=== PATIENT | female | born 1970 | race Caucasian/White ===

== ENCOUNTER → 2021-11-14 | Outpatient (CLI) | payer OTHER ==
--- NOTE | 2021-11-15 08:58 | BD ---
EXAMINATION TYPE: Axial Bone Density DATE OF EXAM: 11/14/2021 COMPARISON: NONE CLINICAL HISTORY: Height: 68.7 IN Weight: 227 LBS FRAX RISK QUESTIONS: Current Tobacco Use: YES RISK FACTORS HISTORY OF: Active: YES Postmenopausal woman: AGE 47 MEDICATIONS: Additional Medications: MILOXICAN, TYLENOL EXAM MEASUREMENTS: Bone mineral densitometry was performed using the [employer] System. Bone mineral density as measured about the Lumbar spine is: ----- L1-L4(G/cm2): 1.291 T Score Values are as follows: ----- L2: -1.8 ----- L3: 2.7 ----- L4: 2.6 ----- L1-L4: 0.9 Bone mineral density BASELINE Bone mineral density about the R hip (g/cm2): 0.938 Bone mineral density about the L hip (g/cm2): 0.941 T Score values are as follows: -----R Neck: -0.7 -----L Neck: -0.7 -----R Total: -0.4 -----L Total: -0.3 Bone mineral density BASELINE IMPRESSION: Normal (Values between +1 and -1 indicate normal bone mass). Consider repeating this study in 5 year s or sooner if there is some new clinical indication. NOTE: T-SCORE=SD OF THE YOUNG ADULT MEAN.
--- NOTE | 2021-11-16 08:59 | MM ---
Reason for exam: screening (asymptomatic). Baseline mammogram. History: Patient is postmenopausal. Took hormonal contraceptives for 2 years. Physical Findings: A clinical breast exam by your physician is recommended on an annual basis and results should be correlated with mammographic findings. MG Screening Mammo w CAD Bilateral CC and MLO view(s) were taken. There are scattered fibroglandular densities. There is no discrete abnormality. No significant changes when compared with prior studies. ASSESSMENT: Negative, BI-RAD 1 RECOMMENDATION: Routine screening mammogram of both breasts in 1 year.
== END ==
LOC: RADBDWWP 07:17
PROVIDERS: ATTEND Internal Medicine
DX: Z12.31 Encounter for screening mammogram for malignant neoplasm of breast (principal); Z78.0 Asymptomatic menopausal state; Z13.820 Encounter for screening for osteoporosis
CPT/HCPCS: 77067; 77080

== ENCOUNTER → 2021-11-14 | Outpatient (CLI) | payer OTHER ==
--- NOTE | 2021-11-14 11:22 | MR ---
EXAMINATION TYPE: MR lumbar spine wo con DATE OF EXAM: 11/14/2021 9:02 AM COMPARISON: NONE HISTORY: Low back pain into left leg Multiplanar, MultiSpin echo imaging of the lumbar spine was performed. L1-L2: Normal disc appearance without desiccation. No herniation, protrusion or disc bulging. No ca nal stenosis is present. Foramina are patent bilaterally. L2-L3: There is a horizontal band of linear decreased signal which may reflect nonacute fracture. Wit h adjacent sclerosis. Consider radiographic correlation. Severe degenerative disc space narrowing wi th posterior disc bulge mildly effaces the ventral thecal sac. No evidence for herniation or sina st enosis. Foramina are patent bilaterally. L3-L4: There is a horizontal band of linear decreased signal which may reflect nonacute fracture. Wit h adjacent sclerosis. Consider radiographic correlation. Severe degenerative disc space narrowing wit h posterior disc bulge mildly effaces the ventral thecal sac. No evidence for herniation or sina fabiano nosis. Foramina are patent bilaterally. L4-L5: Moderate to severe degenerative disc disease. Posterior disc bulge. No herniation or protrusio n. No central stenosis. Facet joint arthropathy without foraminal encroachment. L5-S1: Moderate to severe degenerative disc disease. Posterior disc bulge. No herniation or protrusio n. No central stenosis. Facet joint arthropathy without foraminal encroachment. No paraspinal masses are identified. Conus medullaris has a normal appearance. IMPRESSION: 1. Multilevel degenerative disc disease with posterior disc bulging greatest at L2-L3 4. 2. Fractures at L2 and L3 vertebral bodies which appear to be nonacute are difficult to exclude. Cons ider radiographic correlation.
== END | disposition home or self-care (01) ==
LOC: RADMRIMAIN 08:02
PROVIDERS: ATTEND Internal Medicine
DX: M51.36 Other intervertebral disc degeneration, lumbar region (principal)
CPT/HCPCS: 72148

== ENCOUNTER 2021-11-26 01:53 | Emergency (ER) | payer OTHER ==
[2021-11-26 02:04] VITALS: TEMP 97.2
[2021-11-26] MEDS ORDERED: SODIUM CHLORIDE 0.9% 1,000 ML IV STA (02:41)
--- NOTE | 2021-11-26 02:43 | ED ---
Weakness HPI - General Chief complaint: Weakness Stated complaint: Confusion, left sided weakness Time Seen by Provider: 11/26/21 01:58 Source: patient, RN notes reviewed, old records reviewed Mode of arrival: ambulatory Limitations: no limitations - History of Present Illness Initial comments: This is a 51-year-old female to the emergency department for evaluation. Patient presents today for evaluation regards to not feeling well. Patient gave plasma today and occasionally does not feel well after giving plasma. No medical history takes no medications. Patient alone. Patient denies headache chest pain shortness breath or abdominal pain. No fevers travel history or sick contacts MD Complaint: generalized weakness, numbness, difficulty walking -: days(s) Location: generalized Severity: moderate Severity scale (1-10): 4 - Related Data Allergies Allergy/AdvReac Type Severity Reaction Status Date / Time succinylcholine Allergy Anaphylaxis Verified 11/26/21 02:03 Review of Systems ROS Statement: Those systems with pertinent positive or pertinent negative responses have been documented in the HPI. ROS Other: All systems not noted in ROS Statement are negative. Past Medical History Additional Past Medical History / Comment(s): herniated discs History of Any Multi-Drug Resistant Organisms: None Reported Past Surgical History: Cholecystectomy, Tubal Ligation Past Psychological History: No Psychological Hx Reported Smoking Status: Current every day smoker Past Alcohol Use History: None Reported Past Drug Use History: None Reported General Exam Limitations: no limitations General appearance: alert, in no apparent distress Head exam: Present: atraumatic, normocephalic, normal inspection Eye exam: Present: normal appearance, PERRL, EOMI. Absent: scleral icterus, conjunctival injection, periorbital swelling ENT exam: Present: normal exam, mucous membranes moist Neck exam: Present: normal inspection. Absent: tenderness, meningismus, lymphadenopathy Respiratory exam: Present: normal lung sounds bilaterally. Absent: respiratory distress, wheezes, rales, rhonchi, stridor Cardiovascular Exam: Present: regular rate, normal rhythm, normal heart sounds. Absent: systolic murmur, diastolic murmur, rubs, gallop, clicks GI/Abdominal exam: Present: soft, normal bowel sounds. Absent: distended, tenderness, guarding, rebound, rigid Extremities exam: Present: normal inspection, full ROM, normal capillary refill. Absent: tenderness, pedal edema, joint swelling, calf tenderness Back exam: Present: normal inspection Neurological exam: Present: alert, oriented X3, CN II-XII intact Psychiatric exam: Present: normal affect, normal mood Skin exam: Present: warm, dry, intact, normal color. Absent: rash Course Vital Signs 11/26/21 01:56 Temperature 97.2 F L Pulse Rate 100 Respiratory 22 Rate Blood Pressure 103/71 O2 Sat by Pulse 100 Oximetry - Reevaluation(s) Reevaluation #1: 11/26/21 03:42 Medical record is reviewed Reevaluation #2: 11/26/21 04:15 Patient symptoms are mildly improved a little still feels unwell Reevaluation #3: 11/26/21 04:15 Patient informed of results and questions answered EKG Findings - EKG Comments: EKG Findings:: EKG sinus rhythm 79 OK 132 QRS 89 QTC 436 Medical Decision Making - Medical Decision Making 51 female to the ER for evaluation. Patient Dese after plasma donation not feeling well lightheaded dizzy at times. No acute symptoms, no headache chest pain shortness breath or abdominal pain. Mildly improved here in the ER lab values are normal patient can be discharged home - Lab Data Result diagrams: 11/26/21 02:47 11/26/21 02:47 Lab Results 11/26/21 11/26/21 11/26/21 Range/Units 02:47 02:47 02:47 WBC 11.0 H (3.8-10.6) k/uL RBC 5.11 (3.80-5.40) m/uL Hgb 16.5 H (11.4-16.0) gm/dL Hct 51.1 H (34.0-46.0) % MCV 100.0 (80.0-100.0) fL MCH 32.4 (25.0-35.0) pg MCHC 32.4 (31.0-37.0) g/dL RDW 12.8 (11.5-15.5) % Plt Count 282 (150-450) k/uL MPV 8.0 Neutrophils % 52 % Lymphocytes % 36 % Monocytes % 6 % Eosinophils % 4 % Basophils % 1 % Neutrophils # 5.8 (1.3-7.7) k/uL Lymphocytes # 4.0 (1.0-4.8) k/uL Monocytes # 0.7 (0-1.0) k/uL Eosinophils # 0.4 (0-0.7) k/uL Basophils # 0.1 (0-0.2) k/uL PT (9.0-12.0) sec INR (<1.2) APTT (22.0-30.0) sec Sodium 138 (137-145) mmol/L Potassium 4.3 (3.5-5.1) mmol/L Chloride 107 (98-107) mmol/L Carbon Dioxide 27 (22-30) mmol/L Anion Gap 4 mmol/L BUN 16 (7-17) mg/dL Creatinine 0.77 (0.52-1.04) mg/dL Est GFR (CKD-EPI)AfAm >90 (>60 ml/min/1.73 sqM) Est GFR (CKD-EPI)NonAf >90 (>60 ml/min/1.73 sqM) Glucose 88 (74-99) mg/dL Plasma Lactic Acid James 0.9 (0.7-2.0) mmol/L Calcium 9.2 (8.4-10.2) mg/dL Phosphorus 4.3 (2.5-4.5) mg/dL Magnesium 1.8 (1.6-2.3) mg/dL Total Bilirubin 0.5 (0.2-1.3) mg/dL AST 26 (14-36) U/L ALT 22 (4-34) U/L Alkaline Phosphatase 64 (38-126) U/L Ammonia 13 (<30) umol/L Total Protein 5.9 L (6.3-8.2) g/dL Albumin 3.6 (3.5-5.0) g/dL Lipase 156 (23-300) U/L 11/26/21 Range/Units 02:47 WBC (3.8-10.6) k/uL RBC (3.80-5.40) m/uL Hgb (11.4-16.0) gm/dL Hct (34.0-46.0) % MCV (80.0-100.0) fL MCH (25.0-35.0) pg MCHC (31.0-37.0) g/dL RDW (11.5-15.5) % Plt Count (150-450) k/uL MPV Neutrophils % % Lymphocytes % % Monocytes % % Eosinophils % % Basophils % % Neutrophils # (1.3-7.7) k/uL Lymphocytes # (1.0-4.8) k/uL Monocytes # (0-1.0) k/uL Eosinophils # (0-0.7) k/uL Basophils # (0-0.2) k/uL PT 9.9 (9.0-12.0) sec INR 0.9 (<1.2) APTT 22.9 (22.0-30.0) sec Sodium (137-145) mmol/L Potassium (3.5-5.1) mmol/L Chloride (98-107) mmol/L Carbon Dioxide (22-30) mmol/L Anion Gap mmol/L BUN (7-17) mg/dL Creatinine (0.52-1.04) mg/dL Est GFR (CKD-EPI)AfAm (>60 ml/min/1.73 sqM) Est GFR (CKD-EPI)NonAf (>60 ml/min/1.73 sqM) Glucose (74-99) mg/dL Plasma Lactic Acid James (0.7-2.0) mmol/L Calcium (8.4-10.2) mg/dL Phosphorus (2.5-4.5) mg/dL Magnesium (1.6-2.3) mg/dL Total Bilirubin (0.2-1.3) mg/dL AST (14-36) U/L ALT (4-34) U/L Alkaline Phosphatase (38-126) U/L Ammonia (<30) umol/L Total Protein (6.3-8.2) g/dL Albumin (3.5-5.0) g/dL Lipase (23-300) U/L Disposition Clinical Impression: Weakness Disposition: HOME SELF-CARE Condition: Good Instructions (If sedation given, give patient instructions): Weakness (ED) Is patient prescribed a controlled substance at d/c from ED?: No Referrals: Bhavesh Langley MD [Primary Care Provider] - 1-2 days
[2021-11-26 03:56] LABS: INR 0.9 (<1.2); Partial Thromboplastin Time 22.9 sec (22.0-30.0); Prothrombin Time 9.9 sec (9.0-12.0)
[2021-11-26 04:00] LABS: Basophils # (A) 0.1 k/uL (0-0.2); Basophils % (A) 1 %; Eosinophils # (A) 0.4 k/uL (0-0.7); Eosinophils % (A) 4 %; HCT 51.1 % (34.0-46.0); HGB 16.5 gm/dL (11.4-16.0); Lymphocytes % (A) 36 %; MCH 32.4 pg (25.0-35.0); MCHC 32.4 g/dL (31.0-37.0); Monocytes # (A) 0.7 k/uL (0-1.0); Monocytes % (A) 6 %; Neutrophils # (A) 5.8 k/uL (1.3-7.7); Neutrophils % (A) 52 %; Platelet Count 282 k/uL (150-450); RBC 5.11 m/uL (3.80-5.40); RDW 12.8 % (11.5-15.5)
[2021-11-26 04:05] LABS: Lactic Acid, Venous 0.9 mmol/L (0.7-2.0)
[2021-11-26 04:08] LABS: ALT 22 U/L (4-34); AST 26 U/L (14-36); African American GFR (CKD) >90 (>60 ml/min/1.73 sqM); Albumin 3.6 g/dL (3.5-5.0); Alkaline Phosphatase 64 U/L (38-126); Anion Gap 4 mmol/L; Blood Urea Nitrogen 16 mg/dL (7-17); Calcium 9.2 mg/dL (8.4-10.2); Carbon Dioxide 27 mmol/L (22-30); Chloride 107 mmol/L (98-107); Glucose 88 mg/dL (74-99); Lipase 156 U/L (23-300); Magnesium 1.8 mg/dL (1.6-2.3); Non-African American GFR(CKD) >90 (>60 ml/min/1.73 sqM); Phosphorus 4.3 mg/dL (2.5-4.5); Potassium 4.3 mmol/L (3.5-5.1); Sodium 138 mmol/L (137-145); Total Bilirubin 0.5 mg/dL (0.2-1.3); Total Protein 5.9 g/dL (6.3-8.2)
[2021-11-26 04:40] VITALS: BP 120/63; PULSE 89; RESP 18
[2021-11-26 11:57] LABS: Hepatitis A Antibody IgM Nonreactive (Nonreactive); Hepatitis B Surface Antigen Nonreactive (Nonreactive); Hepatitis C IgG Antibody Nonreactive (Nonreactive)
[2021-11-26 12:25] LABS: Hepatitis B Core IgM Nonreactive (Nonreactive)
== END 2021-11-26 04:40 | disposition home or self-care (01) ==
LOC: EC 01:53
DX: R53.1 Weakness (principal); F17.200 Nicotine dependence, unspecified, uncomplicated; Z88.8 Allergy status to other drugs, medicaments and biological substances
CPT/HCPCS: 36415; 80053; 80074; 82140; 83605; 83690; 83735; 83880; 84100; 84484; 85025; 85610; 85730; 93005; 96360; 99285

== ENCOUNTER → 2021-11-30 | Outpatient (CLI) | payer OTHER ==
--- NOTE | 2021-11-30 08:41 | US ---
EXAMINATION TYPE: US liver DATE OF EXAM: 11/30/2021 COMPARISON: NONE CLINICAL HISTORY: R74.8 Elevated liver enzymes. abn labs, no symptoms, cholecystectomy, habitus and b owel gas limits exam EXAM MEASUREMENTS: Liver Length: 18.9 cm Gallbladder Wall: Surgically absent CBD: 0.8 cm Right Kidney: 9.6 x 4.7 x 4.9 cm Pancreas: wnl Liver: 2.8cm cyst with calcified rim = 2.8 x 2.4 x 2.0cm Gallbladder: Surgically absent Evidence for sonographic Rivera's sign: no CBD: wnl Right Kidney: wnl IMPRESSION: Hepatic cyst with calcified rim is noted.
== END | disposition home or self-care (01) ==
LOC: RADUSWWP 07:11
PROVIDERS: ATTEND Internal Medicine
DX: R74.8 Abnormal levels of other serum enzymes (principal)
CPT/HCPCS: 76705

== ENCOUNTER → 2021-12-14 | Outpatient (CLI) | payer OTHER ==
--- NOTE | 2021-12-14 14:09 | CT ---
EXAMINATION TYPE: CT lumbar spine wo con DATE OF EXAM: 12/14/2021 1:39 PM COMPARISON: MRI dated 11/06/2021 HISTORY: LOW BACK PAIN, NO INJURY CT DLP: 1523.7 mGycm Automated exposure control for dose reduction was used. Technique: Unenhanced CT of the lumbar spine was performed. Bone and soft tissue window settings are submitted as well as coronal and sagittal reconstructions. Findings: Mild retrolisthesis of L3 over L4 and anterolisthesis of L5 over S1, likely degenerative. Severe dege nerative changes at L2-3 level with markedly degenerated disc, marked subchondral sclerotic changes a nd opposing endplate osteophytosis. Markedly degenerated L3-4, L4-5 and to a lesser extent L5-S1 discs. Opposing endplate osteophytosis a t L3-4, L4-5 and to a lesser extent L5-S1 level. Severe bilateral L5-S1 facet osteoarthropathy. L1-L2: No significant disc disease, central spinal canal stenosis or neuroforaminal stenosis. L2-L3: Severe degenerative changes as described above, with posterior osteophytosis and small focal l eft foraminal disc protrusion, causing no significant central spinal canal stenosis or significant ne uroforaminal stenosis. L3-L4: Retrolisthesis with degenerated disc, diffuse posterior bulge and right preforaminal, foramina l and extraforaminal disc protrusions, associated with mild ligamentum flavum hypertrophy, causing mo derate central spinal canal stenosis without significant neuroforaminal stenosis. Compression of the right L3 nerve root in extraforaminal location by adjacent osteophytosis/protruded disc. L4-L5: Markedly degenerated disc with diffuse posterior disc bulge, causing no significant central sp inal canal stenosis or significant neuroforaminal stenosis. L5-S1: Degenerated disc with mild anterolisthesis, mild diffuse posterior pseudodisc bulge and severe bilateral facet osteoarthropathy, causing no significant central spinal canal stenosis and mild bila teral neuroforaminal stenosis. Suspected compression of the L5 nerve roots in extraforaminal location by adjacent osteophytosis. Paraspinal lesion. IMPRESSION: Marked degenerative changes of the lumbar spine with multilevel DDD as detailed above, please correla te clinically and with MRI results.
== END | disposition home or self-care (01) ==
LOC: RADCTMAIN 13:13
PROVIDERS: ATTEND Orthopaedic Surgery
DX: M51.36 Other intervertebral disc degeneration, lumbar region (principal)
CPT/HCPCS: 72131

== ENCOUNTER 2021-12-23 07:42 | Day surgery (SDC) | payer OTHER ==
[2021-12-21 09:16] VITALS: BMI 34.0
[~2021-12-23 07:42] MED LIST: LACTATED RINGERS 1,000 ML IV SCH; LIDOCAINE 1% (10MG/ML) FOR IV START INTRADERMA PRN
[2021-12-23 08:05] VITALS: TEMP 97.8
[2021-12-23] MEDS ORDERED: PROPOFOL 10 MG/ML 20 ML VIAL IV ONE (08:09)
[2021-12-23] MEDS ORDERED: LIDOCAINE 1% INJ 10MG/ML (20 ML MDV) ONE (08:09)
--- NOTE | 2021-12-23 08:37 | P.HPIHPCON ---
History of Present Illness H&P Date: 12/23/21 51-year-old female presents for screening colonoscopy. She does have a family history of colon cancer with her mother and cousins. She states that she has had some recent blood in her stool. She has never had a colonoscopy previously. Consent for Procedure: I have explained the operation/procedure to the patient, including the risks, benefits, side effects, alternative therapies (including not receiving the proposed treatment or service), the likelihood of the patient achieving his/her goals, and potential recuperation problems for the procedure/sedation/analgesia, as well as any blood products, if indicated. I also explained to the patient the risks, benefits and side effects of the alternatives, as well as the risks related to not receiving the proposed procedure, care, treatment, or services. - Review of Systems All systems: negative Past Medical History Additional Past Medical History / Comment(s): SCREENING History of Any Multi-Drug Resistant Organisms: None Reported Past Surgical History: Tonsillectomy, Tubal Ligation Additional Past Surgical History / Comment(s): RT HAND NERVE REPAIR Past Anesthesia/Blood Transfusion Reactions: No Reported Reaction Smoking Status: Current every day smoker - Past Family History Father Family Medical History: Cancer Mother Family Medical History: Cancer Medications and Allergies Home Medications Medication Instructions Recorded Confirmed Type Acetaminophen [Tylenol Extra 1,000 mg PO BID 12/21/21 12/21/21 History Strength] methocarbamoL [Robaxin] 750 mg PO QID PRN 12/21/21 12/21/21 History Allergies Allergy/AdvReac Type Severity Reaction Status Date / Time succinylcholine Allergy Anaphylaxis Verified 12/23/21 08:00 Surgical - Exam Osteopathic Statement: *. No significant issues noted on an osteopathic structural exam other than those noted in the History and Physical/Consult. Vital Signs Temp Pulse Resp BP Pulse Ox 97.8 F 90 16 143/90 97 12/23/21 08:04 12/23/21 08:04 12/23/21 08:04 12/23/21 08:04 12/23/21 08:04 - General well nourished, no distress - Eyes normal ocular movement - Respiratory normal respiratory effort - Abdomen Abdomen: soft, non tender Assessment and Plan Plan: Plan is for screening colonoscopy. Risks, benefits and alternatives were provided to the patient. Further recommendations after procedure.
--- NOTE | 2021-12-23 08:45 | P.PCN ---
Date of Procedure: 12/23/21 Preoperative Diagnosis: Screening Blood in stool Postoperative Diagnosis: Multiple colon polyps Procedure(s) Performed: Colonoscopy with forcep polypectomy and hot snare polypectomy Anesthesia: MAC Surgeon: Jennifer Angelo Pathology: other (Polyps of the cecum, ascending, descending, sigmoid colon) Condition: stable Disposition: same day Indications for Procedure: 51-year-old female presents today for screening colonoscopy. Had a history of blood in her stool. Family history of colon cancer. Operative Findings: Polyps of the cecum, ascending, descending and sigmoid colon Description of Procedure: The patient was brought to the endoscopy suite and placed in left lateral decubitus position. Adequate sedation was achieved using conscious sedation. A digital rectal exam was performed and internal hemorrhoids were palpated. An endoscope was then placed in the rectum and advanced to the cecum as identified by landmarks including the appendiceal orifice and the ileocecal valve. The prep was good. The colonoscope was slowly withdrawn, examining for any mucosal abnormalities. The cecum, ascending, transverse, descending and sigmoid colon were visualized adequately. There were no obvious neoplastic lesions noted throughout the colon. Multiple polyps were encountered. The first of which is noted in the cecum. This was removed with forceps polypectomy. Additional polyp was noted in the ascending colon. This was also removed with forceps polypectomy. A polyp was noted in the descending colon. This was removed with hot snare polypectomy. Additional polyp was noted in the sigmoid colon and this was removed with a forcep polypectomy. Retroflexion was performed in the rectum and internal hemorrhoids were visible. Excess air was removed, the colonoscope withdrawn and the procedure terminated. The patient was then transferred to the recovery unit in stable condition. Repeat colonoscopy should be performed in 3 years.
[2021-12-23 08:52] VITALS: RESP 18
[2021-12-23 09:12] VITALS: BP 115/72; PULSE 72
== END 2021-12-23 09:13 | disposition home or self-care (01) ==
LOC: ORWHC2ENDO 07:42
PROVIDERS: ATTEND Surgery
DX: D12.0 Benign neoplasm of cecum (principal); D12.2 Benign neoplasm of ascending colon; D12.4 Benign neoplasm of descending colon; D12.5 Benign neoplasm of sigmoid colon; F17.200 Nicotine dependence, unspecified, uncomplicated
CPT/HCPCS: 45380; 45385; 88305; J2001; J2704

== ENCOUNTER → 2022-03-15 | Outpatient (CLI) | payer OTHER | END | disposition home or self-care (01) | LOC: LABPAT 10:17 | PROVIDERS: ATTEND Orthopaedic Surgery | DX: Z01.812 Encounter for preprocedural laboratory examination (principal); M47.816 Spondylosis without myelopathy or radiculopathy, lumbar region; M43.16 Spondylolisthesis, lumbar region | CPT/HCPCS: 87070 ==

== ENCOUNTER → 2022-03-16 | Outpatient (CLI) | payer OTHER ==
--- NOTE | 2022-03-17 20:40 | CT ---
EXAMINATION TYPE: CT chest wo con DATE OF EXAM: 03/16/2022 INDICATION: abnormal findings on x-ray, h/o personal tobacco use CT DLP: 637 mGy.cm Automated Exposure Control for Dose Reduction was Utilized. TECHNIQUE AND CONTRAST: CT scan of the chest without IV contrast administration. COMPARISON: None available FINDINGS: 3 mm nodule is seen at the anterior aspect of the right middle lobe with 2 mm nodule in the right low er lobe (images #34 and 37, series 4). Few millimetric nodules along the left oblique fissure likely representing dinora-fissural lymph nodes. 3 mm nodule in the left lung, pleural-based, (image #25, seri es 4). Mild COPD changes. Patent trachea and main bronchi. No pleural or pericardial effusion. No car diomegaly. The pulmonary trunk measures 2.7 cm. No pathologically enlarged lymph nodes in the chest. Questionabl e left thyroid lobe hypodensity, please correlate with thyroid ultrasound results. Previous cholecyst ectomy. Marginally calcified cyst is seen within the liver adjacent to the cholecystectomy bed measur ing 2.2 cm, suboptimally assessed by this nonenhanced CT scan. It was appreciated in November 2019 ultra sound. Signs of hepatic steatosis. No aggressive bone lesion. IMPRESSION: Scattered pulmonary nodules measuring up to 3 mm as described above. No follow-up is required for the se nodules if low risk patient. If high risk patient, optional follow-up CT scan in 12 months can be considered. Other findings as described above.
== END | disposition home or self-care (01) ==
LOC: RADCTMAIN 14:59
PROVIDERS: ATTEND Internal Medicine
DX: R93.89 Abnormal findings on diagnostic imaging of other specified body structures (principal)
CPT/HCPCS: 71250

== ENCOUNTER → 2022-04-19 | Outpatient (CLI) | payer OTHER ==
--- NOTE | 2022-04-20 07:52 | US ---
EXAMINATION TYPE: US thyroid st tissue head/neck DATE OF EXAM: 04/19/2022 COMPARISON: NONE CLINICAL HISTORY: 52-year-old female E04.1 Thyroid nodule. TECHNIQUE: Multiple sonographic images of the thyroid gland are obtained. FINDINGS: GLAND SIZE: Right Lobe: 5.2 x 1.8 x 1.7 cm Overall Parenchyma: Mildly heterogeneous Left Lobe: 5.2 x 1.9 x 1.3 cm Overall Parenchyma: Mild heterogeneous Isthmus Thickness: 0.2 cm NODULES RIGHT: # of nodules measured on right: 1. 0.7 x 0.5 x 0.5cm, mid, solid or almost completely solid, hyperechoic TR 3 nodule, which is as ta ll as it is wide, with smooth margins, without echogenic foci. No prior A few scattered subcentimeter cysts noted. LEFT: # of nodules measured on left: 1. 1.0 X 0.8 x 0.9 cm, mid, solid or almost completely solid, hypoechoic TR 4 nodule, which is wide r than tall, with smooth margins, without echogenic foci. No prior 2. 1.2 X 0.8 x 1.0 cm, lower, solid or almost completely solid, hypoechoic TR 4 nodule, which is w ider than tall, with smooth margins, without echogenic foci. Prior size: no prior Bilateral neck scanned, no evidence of lymphadenopathy. IMPRESSION: 1. Borderline to mild thyromegaly with a few scattered nodules, possible multinodular goiter. 2. There are two solid TR 4 nodules in the left lobe measuring 1.2 and 1.0 cm which can be reassessed at follow-up. FNA if they reach 1.5 cm. 3. A smaller 7 mm solid TR3 nodule on the right.
== END | disposition home or self-care (01) ==
LOC: RADUSWWP 15:30
PROVIDERS: ATTEND Internal Medicine
DX: E04.1 Nontoxic single thyroid nodule (principal)
CPT/HCPCS: 76536

== ENCOUNTER → 2022-06-05 | Outpatient (CLI) | payer OTHER ==
[2022-06-05 18:05] LABS: Basophils # (A) 0.07 X 10*3/uL (0.00-0.10); Basophils % (A) 0.6 %; Eosinophils # (A) 0.54 X 10*3/uL (0.04-0.35); Eosinophils % (A) 4.9 %; HCT 44.4 % (37.2-46.3); HGB 14.4 g/dL (12.0-15.0); Immature Grans, Automated 0.3 %; Lymphocytes # (A) 3.96 X 10*3/uL (0.90-5.00); Lymphocytes % (A) 35.9 %; MCH 31.9 pg (27.0-32.0); MCHC 32.4 g/dL (32.0-37.0); MCV 98.2 fL (80.0-97.0); Mean Platelet Volume 10.2 fL (9.5-12.2); Monocytes # (A) 0.72 X 10*3/uL (0.20-1.00); Monocytes % (A) 6.5 %; NRBC Per 100 WBC 0 /100 WBCS (0.0-0.0); Neutrophils # (A) 5.72 X 10*3/uL (1.80-7.70); Neutrophils % (A) 51.8 %; Platelet Count 414 X 10*3/uL (140-440); RBC 4.52 X 10*6/uL (4.10-5.20); RDW 13.7 % (11.5-14.5); WBC 11.04 X 10*3/uL (4.50-10.00)
[2022-06-05 18:52] LABS: African American GFR (CKD) 104.9 (60.0-200.0); Anion Gap 9.7 mmol/L (10.00-18.00); BUN/Creat Ratio 15.88 Ratio (12.00-20.00); Blood Urea Nitrogen 12.1 mg/dL (9.0-27.0); Calcium 9.8 mg/dL (8.7-10.3); Carbon Dioxide 27.2 mmol/L (20.0-27.5); Non-African American GFR(CKD) 90.5 (60.0-200.0); Potassium 5.2 mmol/L (3.5-5.5)
[2022-06-05 19:33] LABS: INR 0.89 (0.90-1.11); Prothrombin Time 9.8 sec (9.9-11.9)
== END | disposition home or self-care (01) ==
LOC: LABPAT 14:19
PROVIDERS: ATTEND Orthopaedic Surgery
DX: Z01.812 Encounter for preprocedural laboratory examination (principal); Z22.322 Carrier or suspected carrier of Methicillin resistant Staphylococcus aureus; M47.816 Spondylosis without myelopathy or radiculopathy, lumbar region; M43.16 Spondylolisthesis, lumbar region
CPT/HCPCS: 80048; 85025; 85610; 87070

== ENCOUNTER 2022-06-13 05:40 | Inpatient (IN) | payer OTHER ==
[2022-06-08 15:28] VITALS: BMI 35.9
[~2022-06-13 05:40] MED LIST changes: +ACETAMINOPHEN TAB 500 MG TAB PO PRN; +GABAPENTIN 300 MG CAP PO PRN; -LACTATED RINGERS 1,000 ML IV SCH; -LIDOCAINE 1% (10MG/ML) FOR IV START INTRADERMA PRN; +ONDANSETRON 4 MG/2 ML VIAL IVP PRN; +TRANEXAMIC ACID IN NACL,ISO-OS 1,000 MG in SALINE 1 100ML.BAG IVPB PRN
[2022-06-13] MEDS ORDERED: DEXAMETHASONE SOD PHOSPHATE 4 MG/ML 1 ML VIAL IV ONE (06:07)
[2022-06-13] MEDS ORDERED: ONDANSETRON 4 MG/2 ML VIAL IVP ONE (06:07)
[2022-06-13] MEDS: LACTATED RINGERS 1,000 ML IV SCH (06:42)
[2022-06-13] MEDS ORDERED: LACTATED RINGERS 1,000 ML IV ONE ×4 (06:42→15:00)
--- NOTE | 2022-06-13 06:45 | P.HPOR ---
History of Present Illness H&P Date: 06/05/22 Chief Complaint: Low back and leg pain, leg weakness [facility] Date of :[birth year] Age: 51 year Height: 5'9" Weight: 224 lbs BMI: 33.08 kg/m2 Occupation: Unemployed VAS: 6 CHIEF COMPLAINT: Lumbar pain HISTORY: Xrays No new xrays taken in office Trauma or injury No Work-Related No Pain description burning, sharp. Location posterior Activity Modification yes , unable to stand or ambulate for extended periods of time. Hand Dominance right DOS: None TREATMENTS COMPLETED: 6 weeks of PT completed? Yes (completed course 2 months ago (11/2021)) Did it help? No, exacerbates her symptoms. Physician directed home exercise completed? yes , daily without improvements. Medications yes List: [place] 5/325mg, Mobic 7.5mg both with mild relief of her symptoms. Pt has trialed Gabapentin and Lyrica in the past without any improvements. No significant improvements with Robaxin 750mg. Alternative interventions Chiropractic: yes , exacerbates her symptoms. Massage therapy: No Brace: No Injections Yes (lumbar) How many? several Did they help? No RFA: No SUBJECTIVE: Today the patient presents to the office for a pre-operative review of the planned L2-Pelvis Decompression and fusion. Since the time of the last appointment the patient reports that she has seen no changes to her symptoms. Patient reports continued lumbar pain ongoing for several years with no known injury or trauma to indicate an exact onset of their symptoms. In addition to their lumbar pain, they do report that it radiates into the bilateral lower extremities, associated with numbness and tingling through L5 dermatomal distribution of the left lower extremity. Overall the patient has seen a progressive increase in symptoms since their onset. Ms. Winston symptoms are exacerbated with most ADL's involving flexion, extension, twisting, weightlifting, and prolonged standing/ambulate due to this they notes that it is increasingly difficult for Ms. Winston to complete many of their daily tasks. Patient is having severe sleep disturbances as well due to their ongoing pain and associated symptoms. Regarding treatments, the patient has previously trialed all abovementioned treatment modalities without any relief. Patient denies trialing any other modalities at this time. For their symptoms, the patient has been taking [place] 5/325mg, Mobic 7.5mg both with mild relief of her symptoms. Pt has trialed Gabapentin and Lyrica in the past without any improvements. No significant improvements with Robaxin 750mg. Otherwise the patient denies any f/c/sob/cp, no bladder or bowel retention/incontinence no perineal numbness/tingling, and ambulates independently. HPI: The patient last returned to the office on 01/19/2022 for a recheck of her lumbar spine and to review her obtained after the time of the last appointment. Since the time of the last appointment the patient reports that she has seen no improvements to her symptoms. She continues to complain of severe, sharp lumbar pain radiating into the bilateral buttocks and lower extremities. Due to this she reports that she is unable to complete most of her daily activities due to the severity of her symptoms. She has been taking the Robaxin as prescribed at the time of the last appointment without any relief as well. Overall she denies any improvements to her symptoms with all of her conservative modalities trialed thus far. Otherwise she does report that she has been smoking but is currently working on smoking cessation. She denies any bladder or bowel retention/incontinence, no perineal numbness/tingling, and ambulates independently. Ms. Winston last presented to the office on 11/30/2021 for an evaluation of her lumbar spine. Of note the patient has been previously evaluated by other specialists and is currently being seen by [facility] for chronic pain management. She reports posterior lumbar pain ongoing for greater than 15 years with no known injury or trauma to indicate an exact onset of her symptoms. With this she does also report that her symptoms have progressively worsened over time as well. More recently, the patient has seen an increase in her pain over the last 2 months, again with no injury or trauma. Regarding her symptoms, the patient reports burning, sharp posterior lumbar pain extending into the bilateral buttocks and lower extremities. In addition to the pain she does also report intermittent diffuse numbness and tingling as well. Overall her symptoms are exacerbated with prolonged standing and activity, which is increasingly making completing her daily tasks difficult. In addition to this she is having frequent sleep disturbances as well. As for treatments, the patient has trialed a recent course of PT, daily home exercises, and chiropractics, all of which exacerbate her symptoms. Additionally she has previously had several injections without improvements. regarding medications she does take both [place] 5/325mg and MObic 7.5mg with mild relief of her symptoms. She has previously trialed Gabapentin and Lyrica but found that these medications make her lethargic and drowsy so she discontinued them. Otherwise she denies any bladder or bowel retention/incontinence, no perineal numbness/tingling, and ambulates independently. The patients' past social, medical, family, surgical history, as well as review of systems, have been reviewed. Please refer to the Neurosurgery History and Physical form that has been scanned in to our electronic medical record system. 14 points review of systems completed and as stated in HPI, all other systems reviewed are negative. Social History: Reviewed, see appropriate section of the chart for details. P3 Social History: Smoking: former smoker P3 Alcohol: none P3 [id number] History: Reviewed, see appropriate section of the chart for details. P2 Past Medical History: Reviewed, see appropriate section of the chart for details. [id number] Medications: Rx: HYDROcodone 5 mg-acetaminophen 325 mg tablet Ref: 0 Rx: loratadine Ref: 0 Rx: meloxicam 7.5 mg tablet Ref: 0 PHYSICAL EXAMINATION: General: Awake, alert, appropriate for age, in no acute distress. HEENT: No unusual neck masses around region of lateral neck triangle, thyroid, supraclavicular groove Heart: Regular rate and rhythm, normal S1, S2 and no murmur/gallop. Lungs: Clear to auscultation bilaterally with no use of accessory muscles. Extremities: Skin warm and dry without acute lesions, coloration, temperature, skin intact, no tenderness or erythema Integument: Hairy patches: Absent Dorsal skin dimples: Absent Cafe au lait spots: Absent Surgical incisions: No Palpation: Please see Pain drawing on Intake sheet for further detail. Midline spinal tenderness: Yes, throughout lumbar region E6 Paralumbar tenderness: Yes E6 Parathoracic tenderness: No E6 Buttocks tenderness: No E6 Special findings: yes moderate TTP over the glute medius on the left side TTP over the bilateral SI joints POSTURAL and MUSCULO-SKELETAL EVALUATION: Coronal Balance: NEUTRAL Recumbent testing: Patient is able to lay flat on back Sagittal Balance: NEUTRAL Shoulder Profile: LEVEL Pelvic Girdle: LEVEL Neck ROM: UNRESTRICTED Lumbar ROM: RESTRICTED Shoulder ROM: Symmetrical Hip ROM: Symmetrical Knee ROM: Symmetrical Hands: Normal appearance, symmetrical Feet: Normal appearance, Symmetrical VASCULAR STATUS : LEFT RIGHT Wrist Pulses INTACT INTACT Pedal Pulses (Dors. pedis & post.tibialis) INTACT INTACT Color NORMAL NORMAL Edema Absent Absent NEUROLOGIC EXAMINATION: Mental Status:Awake and alert, fully oriented, with normal attention, concentration and memory, and fluent, appropriate speech. Cranial Nerves: I: Olfactory not tested. II: Visual acuity normal, no visual field deficit noted with confrontation. III,IV: Normal pupillary reflexes & intact extraocular movements without nystagmus. V,: Intact symmetrical facial sensation. VII: Intact symmetrical facial motor movement VIII: Hearing intact. IX,X: Intact gag, swallow, & normal voice. XI: Sternocleidomastoid, trapezius function intact. XII: Tongue midline with normal movements. L'hermitte's Sign: Negative / absent Spurling'Sign: Absent bilaterally. Cubital percussion test: Absent bilaterally. Ortiz-Tinel sign - Carpal region: Absent bilaterally. Straight Leg Raising: Absent bilaterally. Crossed straight leg raise: negative O8 MOTOR EXAM (0-5/5, N/T) STRENGTH RIGHT LEFT Shoulder Abd (not part of the BEBO score) 5 5 Elbow Flexors 5 5 Elbow Extensor 5 5 Wrist Dorsiflexors 5 5 Finger Abductor 5 5 Store Stock Help 5 5 Hip Flexor (Not part of BEBO Motor score) 5 4+ pain Knee Flexor 5 5 Knee Extensor 5 5 Ankle dorsiflexor 5 4+ Ankle plantarflexion 5 4+ Extensor hallucis 5 5 REFLEXES(0-4/2, NT) RIGHT LEFT Upper Extremities 2 2 Lower Extremities 2 2 Pathological Reflexes RIGHT LEFT Ortiz's Absent Absent Clonus Absent Absent Babinski Absent Absent # Indicates mechanical impairment Muscle appearance: Symmetrical, without signs of atrophy or dystrophy. Sensory system (0-4, N/T) Test type RU TA RL LL Joint-Position 2 2 2 2 Vibration 2 2 2 2 Pain & LT sense 2 2 2 2 Dermatomal Deficit: None None None L5 Gait and Functional Evaluation: Ambulatory aids: Independent Romberg's test: Intact bilaterally Toe heel walk / heel-toe walk intact while maintaining satisfactory balance? yes Squatting/straightening w/o assistance to a min of 60 degree knee flexion? yes Single leg stance: intact Trendelenburg sign negative bilaterally Hand and finger dexterity intact bilaterally? yes Disdiadochokinesis examination negative bilaterally? yes RADIOGRAPHIC STUDIES: XRay taken on 11/30/21 of Lumbar Spine and pelvis: These are reviewed and demonstrate L5-S1 spondylolysis with grade I sponeylolisthesis. There are likely bilateral pars defects in L5 based on these films and her listhesis. This is mobile on f/e films and has segmental angulation. There are no othe rfractures noted. There is disc height loss at this level as well as mild disc height loss at L4-5. There are no lesions noted. No other bony abnormalities. LL is maintained however alignment is listhesis. There is mild coronal collapse due to the disc height loss. AP pelvis demonstrates level pelvis w/o fracture CT scan without contrast from 12/14/2021 of lumbar spine: Images reviewed in the office and the patient demonstrated severe spondylosis from L2 through S1. There are vacuum disks at L2 3 L3 4 L4 5 and L5-S1 with severe disc collapse at L2-L3 with Modic endplate changes there is severe disc collapse at 3445 and 51 as well. There is retrolisthesis of L3 on L4. There is severe facet arthrosis L4 5 and L5-S1 as well as L2 3. There is no acute fracture or dislocation noted at this time there is listhesis of L5 on S1 with pars elongation. There is bony stenosis related to the's changes at these levels there is a disc osteophyte complex at L3-L4 noted. Scars is moderate central canal stenosis overall alignment is reasonably well maintained however there are some flattening of the normal lumbar lordosis secondary to the severe disc collapse. No lesions noted. MRI scan from 11/14/2021 of Lumbar Spine: Similar findins reviewed with patient. There is L5-S1 GI spondylolisthesis due to bilateral L 5 pars defects. There is disc dessication and height loss causing b/l foraminal stenosis R>L as well as central stenosis. There is li gamental hypertrophy and facet overgrowth as well as spondylotic changes related to this spondylolysis. No other lesions or fractures noted at this time. IMPRESSION AND PLAN: It was my pleasure to have seen and examined Jazmine. I reviewed the patient's clinical syndrome, physical findings, and imaging studies during the appointment today. It is my impression that the patient has a diagnosis of. 1. L5-S1 spondylolysis with grade 1 spondylolisthesis 2.L5-S1 spondylosis 3. left lower extremity radiculopathy I outlined the natural course history without intervention and various interventional options. Based on my findings I suggest the following course of action: 1. Smoking cessation advice given and the patient is understanding of this and commits to quitting smoking for 6 weeks prior to the surgery and 6 weeks post-operatively. Patient denies any smoking since the time of the last appointment. 2. Based on the severity of her symptoms along with her failure to improve with conservative modalities treatments I discussed treatment options with the patient, including operative and non-operative options, and they have elected to proceed with the following surgical procedure: L2-Pelvis Decompression and fusion The indications, risks, benefits, and alternatives to surgery were discussed with the patient at length. Specifically (but not limited to) the risks of infection, stiffness, recurrence of symptoms, need for revision surgery, local numbness, neurovascular injury, and blood clots were discussed. The patient's questions were answered.The patient would like to consider surgical options and will call the office if /when they decide to proceed. Spine Surgery Risk Review Ms. Winston is presenting for evaluation of lumbar pain. It was my pleasure to have seen and examined Ms. Winston. In our visit today we have had a chance to go over subjective complaints, physical examination findings and treatments including the natural course history without intervention and various interventional options. The patients imaging demonstrates: XRay taken on 11/30/21 of Lumbar Spine and pelvis: These are reviewed and demonstrate L5-S1 spondylolysis with grade I spondylolisthesis. There are likely bilateral pars defects in L5 based on these films and her listhesis. This is mobile on f/e films and has segmental angulation. There are no othe rfractures noted. There is disc height loss at t his level as well as mild disc height loss at L4-5. There are no lesions noted. No other bony abnormalities. LL is maintained however alignment is listhesis. There is mild coronal collapse due to the disc height loss. AP pelvis demonstrates level pelvis w/o fracture CT scan without contrast from 12/14/2021 of lumbar spine: Images reviewed in the office and the patient demonstrated severe spondylosis from L2 through S1. There are vacuum disks at L2 3 L3 4 L4 5 and L5-S1 with severe disc collapse at L2-L3 with Modic endplate changes there is severe disc collapse at 3445 and 51 as well. There is retrolisthesis of L3 on L4. There is severe facet arthrosis L4 5 and L5-S1 as well as L2 3. There is no acute fracture or dislocation noted at this time there is listhesis of L5 on S1 with pars elongation. There is bony stenosis related to the's changes at these levels there is a disc osteophyte complex at L3-L4 noted. Scars is moderate central canal stenosis overall alignment is reasonably well maintained however there are some flattening of the normal lumbar lordosis secondary to the severe disc collapse. No lesions noted. MRI scan from 11/14/2021 of Lumbar Spine: Similar findings reviewed with patient. There is L5-S1 GI spondylolisthesis due to bilateral L 5 pars defects. There is disc dessication and height loss causing b/l foraminal stenosis R>L as well as central stenosis. There is ligamental hypertrophy and facet overgrowth as well as spondylotic changes related to this spondylolysis. No other lesions or fractures noted at this time. On physical exam, Ms. Winston demonstrates severely restricted lumbar ROM with bilateral lower extremity radiculopathy and left lower extremity weakness with L 5 dermatomal deficit. There is significant TTP through the paralumbar region as well as midline TTP through the L2-S1 region. Patient does also demonstrate left glute medius TTP as well. I have explained to the patient that as their condition progresses it will cause further neurological deficits and eventual paralysis. Based on the patients imaging, physical exam, and the rapid progression and disabling nature of their symptoms, at this time I recommend surgery in the form or a: L2-Pelvis Decompression and fusion. I discussed the risk and benefits of this procedure at length with Ms. Winston. The patient agreed to considered pursuing the procedure abovementioned. Prior to surgery, she should follow up with her PCP (Cardio, ID, IM etc) for clearance. Questions were invited and answered, and the patient wishes to proceed as outlined below. Currently, I am recommendin. L2-Pelvis Decompression and fusion 2.Follow up with PCP for surgical clearance 3.Review of surgical risks and benefits as well as an educational packet on the proposed surgical procedure. Risks: All surgical procedures come with inherent risks, including those related to positioning, anesthesia, intraoperative findings, and postoperative complications. It is important to understand that surgery does not come with any guarantee of a successful outcome as complications and adverse events are always possible. The patient was given a handout in office today discussing the surgical procedure and risks associated with the intervention, both of which were discussed with the patient. These risks include but are not limited to the following: * Experiencing same, different or even worse symptoms in back, neck, arms, or legs compared to before surgery. Requiring further surgery or other forms of treatment presently or at some time in the future at same or other levels of the intended spine surgery. On an extreme but fortunately relatively rare basis severe complication such as blindness, stroke, heart attack, temporary and/or permanent nerve injury, paralysis, coma, or may occur, sometimes without known explanation. Surgical complications may include but are not limited to risk of infection, fluid accumulation in the surgical dissection site, including a seroma or hematoma, that requires additional surgery, wound drainage, bleeding, new numbness or weakness, vision changes/loss, spinal fluid leakage, non-healing and/or infected incision, headaches, difficulty or inability to swallow, hoarseness, hemopneumothorax, pneumothorax, impotence, retrograde ejaculation, vaginal dryness; injury to nerves, spinal cord, blood vessels, lymphatics or other vital organs (i.e., bowel injury, injury to the great vessels); heterotopic bone formation; complications related to the hardware such as screws, rods, cages including misplaced hardware, device failure, instrumentation at the wrong spine level, hardware fracture/breakage, or hardware loosening; vertebral failure of the spinal column above or below the newly placed hardware; retained surgical instrumentations or devices and the need for further surgery. * Medical risks of the planned spine surgery include but are not limited to generalized Infections to the whole body or local areas outside of the surgical site (sepsis), heart attack, bleeding, anaphylaxis, meningitis, seizure, epilepsy, hearing loss, burn hyman, laceration of the head or other areas of the body, bruising, hypersensitivity of the skin, bladder over distension; allergic reaction; shoulder injury related to positioning; fat, blood and air clots to other areas of the body like heart, lungs, brain; failure of internal organs such as lungs, kidneys, liver and excessive bleeding. If blood transfusions are necessary, note that transfusions may cause intolerance reactions such as anaphylaxis or other complex reactions. Despite best efforts, the results of spine surgery might not heal in terms of bone, soft tissues such as skin, fascia, ligaments, and joints. Additionally, in order to achieve best possible results, spine surgery may be carried out beyond the initially planned levels and involve decompression, fusion including insertion of hardware at levels other than the original intended area of surgical interest change some portions of the procedure in order to ensure the best possible outcomes. With spine surgery and spinal fusion, there are different off label uses of instrumentation (devices, implants and hardware) as well as biological substances (bone morphogenic proteins, demineralized bone matrix) as well as using extra bone from allograft sources (i.e. cadaver bone) or autograft (iliac crest bone, ribs, or the spine itself). The patient has been given information about these practices and their inherent risks and benefits. [facility] is an educational center that serves as a training facility for neurosurgical and orthopedic DEVELOPMENT TECHNICAL LEAD and Nursing students. Physician assistants are medically trained surgical providers who function in the outpatient, inpatient, and operating room setting under the direct supervision of the attending surgeon. [facility] has multiple operating rooms with single and overlapping rooms running daily. They currently function under the required guidelines as produced by the [facility] Finance Committee with regards to the overlapping rooms and will continue to comply with changes to this policy as they occur. The requirements include and are complied with as follows: (1) the critical portions of the overlapping rooms will not occur at the same time, (2) the attending physician will be physically present during the critical portions of the procedure and immediately available during the entire case, and (3) a back-up attending is designated should the primary attending not be immediately availa ble. The patient has had a chance to review all the listed information, has been given print outs detailing this information, and has had all his/her questions answered to their satisfaction. It was my pleasure to have seen and examined Ms. Winston. In our visit today we have had a chance to go over my understanding of our patient's current condition, the natural course history without intervention and various interventional options. Questions were invited and answered, and the patient wishes to proceed as outlined above. I have seen and examined the patient for 25 minutes and we have spent more than 50% of the time in repeat and detailed counseling about the patient's condition, its natural course history with out and as much as can be predicted with surgery and re-review of various surgical treatment options. In conclusion, Ms. Winston requested we proceed with the above suggested surgery and are willing to accept risks and limitations of the suggested surgery as n ature of the disease process and our best attempts at treatment for the condition. Thank you again for allowing us to be part of your patient's care. Please don't hesitate to contact me if you have any further questions. Signed and authenticated by: Paul Latham [facility] [address] [place] [address] Past Medical History Additional Past Medical History / Comment(s): herniated discs. thyroid nodules History of Any Multi-Drug Resistant Organisms: None Reported Past Surgical History: Cholecystectomy, Tonsillectomy, Tubal Ligation Additional Past Surgical History / Comment(s): right hand nerve repair Past Anesthesia/Blood Transfusion Reactions: Previous Problems w/ Anesthesia Additional Past Anesthesia/Blood Transfusion Reaction / Comment(s): when pt was a child and had her tonsils removed-"heart stopped" Past Psychological History: No Psychological Hx Reported Smoking Status: Current some day smoker Past Alcohol Use History: None Reported Additional Past Alcohol Use History / Comment(s): pt cutting back her smoking and trying to quit Past Drug Use History: Marijuana Additional Drug Use History / Comment(s): "edibles" occasionally for pain - Past Family History Mother Family Medical History: No Reported History Medications and Allergies Home Medications Medication Instructions Recorded Confirmed Type oxyCODONE-APAP 10-325MG [Percocet 1 tab PO QID PRN 06/08/22 06/08/22 History 10-325 mg] Allergies Allergy/AdvReac Type Severity Reaction Status Date / Time succinylcholine Allergy Anaphylaxis Verified 06/08/22 15:19 Physical Examination Osteopathic Statement: *. No significant issues noted on an osteopathic structural exam other than those noted in the History and Physical/Consult.
[2022-06-13] MEDS ORDERED: ROCURONIUM 10 MG/ML (5 ML VIAL) IV ONE (07:30)
[2022-06-13] MEDS ORDERED: PROPOFOL 10 MG/ML 20 ML VIAL IV ONE (07:30)
[2022-06-13] MEDS ORDERED: GLYCOPYRROLATE 0.2 MG/ML 2 ML VIAL ONE (07:30)
[2022-06-13] MEDS ORDERED: fentaNYL (PF) 50 MCG/ML 2 ML AMP ONE (07:30)
[2022-06-13] MEDS ORDERED: HYDROmorphone (PF) 1 MG/ML ONE (07:30)
[2022-06-13] MEDS ORDERED: ONDANSETRON 4 MG/2 ML VIAL ONE (07:30)
[2022-06-13] MEDS ORDERED: LIDOCAINE 2% INJ 20 MG/ML (2 ML VIAL) ONE (07:30)
[2022-06-13] MEDS ORDERED: MIDAZOLAM 2 MG/2 ML VIAL ONE (07:30)
[2022-06-13] MEDS ORDERED: ePHEDrine 50 MG/ML 1 ML VIAL ONE (07:30)
[2022-06-13] MEDS ORDERED: WATER FOR INJECTION, STERILE 10 ML VIAL IV ONE (07:30)
[2022-06-13] MEDS ORDERED: NEOSTIGMINE 1 MG/ML 10 ML VIAL ONE (07:30)
[2022-06-13] MEDS ORDERED: PHENYLEPHRINE-0.9% NACL SYG 1,000 MCG/10 ML SYRINGE ONE (07:30)
[2022-06-13] MEDS ORDERED: ceFAZolin 3,000 MG in SODIUM CHLORIDE 0.9% IRRIGATIO 3,000 ML IRRIGATION ONE (09:20)
[2022-06-13] MEDS ORDERED: GENTAMICIN 80 MG in SODIUM CHLORIDE 0.9% IRRIGATIO 3,000 ML IRRIGATION ONE (09:21)
[2022-06-13] MEDS ORDERED: SODIUM CHLORIDE 0.9% 100 ML with ceFAZolin 2,000 MG IV ONE ×2 (12:30)
[2022-06-13] MEDS ORDERED: MAGNESIUM HYDROXIDE 2,400 MG/10 ML CUP PO PRN (13:43)
[2022-06-13] MEDS ORDERED: ONDANSETRON 4 MG/2 ML VIAL IVP PRN (13:43)
[2022-06-13] MEDS ORDERED: MAG HYDROX/AL HYDROX/SIMETH 30 ML CUP PO PRN (13:43)
[2022-06-13] MEDS ORDERED: TRANEXAMIC ACID IN NACL,ISO-OS 1,000 MG in SALINE 1 100ML.BAG IVPB PRN (13:56)
[2022-06-13] MEDS ORDERED: VANCOMYCIN 1,000 MG VIAL MISCELLANE ONE (15:16)
--- NOTE | 2022-06-13 15:35 | FL ---
Fluoroscopy HISTORY: Lumbar fusion 78 seconds fluoroscopy time supplied to the referring clinician. 4 intraoperative C-arm images docum ent the procedure. See dictated report from orthopedic surgery.
[2022-06-13] MEDS: HYDROmorphone 0.5 MG/0.5 ML SYRINGE IVP PRN ×2 (16:55→17:37)
[2022-06-13] MEDS: ACETAMINOPHEN TAB 500 MG TAB PO SCH (18:25)
[2022-06-13] MEDS: HYDROmorphone 1 MG/ML 1 ML SYRINGE IVP PRN ×2 (19:29→22:48)
[2022-06-13] MEDS: DEXAMETHASONE SOD PHOSPHATE 4 MG/ML 1 ML VIAL IVP SCH (19:30)
[2022-06-13] MEDS: CYCLOBENZAPRINE 10 MG TAB PO PRN (19:30)
[2022-06-14] MEDS: CYCLOBENZAPRINE 10 MG TAB PO PRN ×3 (00:23→19:53)
[2022-06-14] MEDS: ACETAMINOPHEN TAB 500 MG TAB PO SCH ×4 (00:23→17:43)
[2022-06-14] MEDS: DEXAMETHASONE SOD PHOSPHATE 4 MG/ML 1 ML VIAL IVP SCH ×4 (00:24→19:55)
[2022-06-14] MEDS: LACTATED RINGERS 1,000 ML IV SCH (01:10)
[2022-06-14] MEDS: HYDROmorphone 1 MG/ML 1 ML SYRINGE IVP PRN ×5 (01:54→17:15)
--- NOTE | 2022-06-14 03:24 | P.CONS ---
History of Present Illness - Reason for Consult Consult date: 06/13/22 - History of Present Illness The patient is a 52-year-old female with a PMH of chronic lower back pain who was admitted for an elective L2-pelvis decompression and fusion. The patient underwent the procedure earlier today with no immediate postoperative consultations and was seen on the surgical unit. The patient reported ongoing severe pain, originating from the lower back radiating to both her legs. She reports good strength and both lower extremities. Patient reports not having passed urine or flatness at time of interview. She denied chest discomfort, shortness of breath, nausea, abdominal pain. Review of systems: Pertinent positives and negatives as discussed in HPI, a complete review of systems was performed and all other systems are negative. Physical examination: General: non toxic, in moderate pain, appears at stated age, obese Derm: no unusual rashes/lesions, warm Head: atraumatic, normocephalic, symmetric Eyes: EOMI, no lid lag, anicteric sclera, pupils equal round reactive to light ENT: Nose and ears atraumatic Neck: No cervical lymphadenopathy, trachea midline, supple Mouth: no lip lesion, mucus membranes moist Cardiovascular: S1S2 reg, no murmur, positive dorsalis pedis pulse bilateral, no edema Lungs: CTA bilateral, no rhonchi, no rales, no accessory muscle use Abdominal: soft, nontender to palpation, no guarding Ext: muscle strength 5 out of 5 in all 4 extremities grossly, no gross muscle atrophy, no contractures, lumbar dressing with drain in place draining serosanguineous fluid Neuro: CN II-XI grossly intact, no gross focal neuro deficits Psych: Alert, oriented, appropriate affect Assessment/plan Chronic lower back pain status post L2-pelvis decompression and fusion -Defer management including pain control and DVT prophylaxis to the primary surgery service Past Medical History Additional Past Medical History / Comment(s): herniated discs. thyroid nodules History of Any Multi-Drug Resistant Organisms: None Reported Past Surgical History: Cholecystectomy, Tonsillectomy, Tubal Ligation Additional Past Surgical History / Comment(s): right hand nerve repair, L2 to pelvis decompression and fusion (06/13/22) Past Anesthesia/Blood Transfusion Reactions: Previous Problems w/ Anesthesia Additional Past Anesthesia/Blood Transfusion Reaction / Comm: when pt was a child and had her tonsils removed-"heart stopped" Past Psychological History: No Psychological Hx Reported Smoking Status: Current some day smoker Past Alcohol Use History: None Reported Additional Past Alcohol Use History / Comment(s): pt cutting back her smoking and trying to quit Past Drug Use History: Marijuana Additional Drug Use History / Comment(s): "edibles" occasionally for pain - Past Family History Mother Family Medical History: Cancer Medications and Allergies Home Medications Medication Instructions Recorded Confirmed Type oxyCODONE-APAP 10-325MG [Percocet 1 tab PO QID PRN 06/08/22 06/08/22 History 10-325 mg] Allergies Allergy/AdvReac Type Severity Reaction Status Date / Time succinylcholine Allergy Anaphylaxis Verified 06/08/22 15:19 Physical Exam Vitals: Vital Signs Temp Pulse Resp BP Pulse Ox 06/13/22 20:00 17 94/64 06/13/22 19:32 97.4 F L 72 17 100/60 93 L 06/13/22 18:04 83 18 109/62 96 06/13/22 17:45 85 18 108/56 97 06/13/22 17:30 104 H 18 121/57 97 06/13/22 17:15 105 H 18 119/59 97 06/13/22 17:00 101 H 18 119/59 97 06/13/22 16:45 97 18 128/60 100 06/13/22 16:30 94 18 134/62 100 06/13/22 16:16 97.2 F L 116 H 18 126/69 100 06/13/22 06:23 97.2 F L 72 18 125/71 99 Intake and Output 06/13/22 06/13/22 06/13/22 06:59 14:59 22:59 Intake Total 200 3452 1300 Output Total 2090 Balance 200 3452 -790 Intake: IV 200 3452 1300 Output: Urine 490 Estimated Blood Loss 1600 Other: Voiding Method Indwelling Catheter Weight 106.4 kg 106.4 kg
[2022-06-14] MEDS: HYDROmorphone 0.5 MG/0.5 ML SYRINGE IVP PRN (05:11)
[2022-06-14] MEDS ORDERED: GABAPENTIN 300 MG CAP PO SCH (09:00)
--- NOTE | 2022-06-14 09:55 | CT ---
EXAMINATION TYPE: CT lumbar spine wo con DATE OF EXAM: 06/14/2022 COMPARISON: HISTORY: Lumbar fusion 06/13/2022, L2-S1 CT DLP: 2074.6 mGycm CONTRAST: None TECHNIQUE: CT of the lumbar spine is performed on a spiral scan at 3 mm thick sections. Reconstructed images are performed in the coronal and sagittal planes. FINDINGS: Disc spaces are present at L2-3, L3-4, L4-5, L5-S1. Pedicles are present L2-S1. Laminectomies been pe rformed. There are postsurgical changes evident within the soft tissues. Beam hardening artifact from pedicle screws and fixation rods and disc spacers cause some limitation during the evaluation. T11-12: No focal disc herniation or significant disc bulge. No spinal canal stenosis or neural forami nal stenosis. Postsurgical changes are present to 3 through L5-S1. Beam hardening artifact limits evaluation. No ob vious stenosis is evident. Neural foramen when visualized appear patent. Note is made of some calcification within the posterior inferior right lobe liver. This may be exophy tic. IMPRESSION: Postsurgical changes L2-S1. No obvious stenosis. Limitation due to beam hardening artifact.
--- NOTE | 2022-06-14 10:17 | P.PN ---
Subjective Progress Note Date: 06/14/22 Principal diagnosis: L5-S1 spondylosis; L5-S1 grade 1 spondylolisthesis; left lower extremity radiculopathy Patient was seen at bedside this morning lying semirecumbent position with [place] in place. Patient says yesterday she did stand up at bedside. Patient says she was in severe amount of pain when she tried to sit up at bedside. Patient currently rates pain as 9/10. Patient says she is still having some numbness/tingling in her lower extremities. Patient says she has pain in her low back as well as in her left foot. Patient says she is unsure how one of her drains came out last night. Patient says she thinks it happened when she was turning in bed. Patient denies chest pain, fever, shortness of breath, nausea, vomiting, change in vision, loss of bowel/bladder control. Objective - Vital Signs Vital signs: Vital Signs Temp 98.4 F 06/14/22 08:00 Pulse 71 06/14/22 08:00 Resp 18 06/14/22 08:00 BP 103/66 06/14/22 08:00 Pulse Ox 91 L 06/14/22 08:00 FiO2 Intake & Output 06/13/22 06/14/22 06/14/22 18:59 06:59 18:59 Intake Total 4752 Output Total 2090 1400 200 Balance 2662 -1400 -200 Weight 106.4 kg Intake: IV 4752 Output: Drainage 200 Left Back 200 Urine 490 1400 Estimated Blood Loss 1600 Other: Voiding Method Indwelling Catheter Indwelling Catheter - Exam optifoam dressing in place over spine at this time. Clean, dry intact. [place] well aligned. Deep drain is no longer in place at this time. There is drain sponge and Tegaderm over deep drain incision. Superficial drain is still in place at this time with serosanguineous drainage present on suction. Sensation is equal, symmetric, bilaterally intact throughout the upper and lower extremities. There is moderate TTP along the incision on lumbar spine. There is also some paravertebral tenderness in this region. Nontender to palpation throughout rest of exam. Patient has full range of motion bilateral upper extremities. Patient does have limited range of motion in left lower extremity and hip flexion/extension as well as knee flexion/extension and ankle dorsi/plantar flexion. Patient does have some limited range of motion right hip flexion/tension. Patient's range of motion right knee flexion/extension and ankle dorsi/plantar flexion. 4+/5 in all major motor groups in left lower extremity. 5/5 in all major motor groups in lower extremity. Neurovascular status is intact. Radial pulse intact, 2+ bilaterally. Cap refill is under 3 seconds in digits of upper extremities. Negative Homans bilaterally. Negative clonus bilaterally. negative Homans bilaterally. Assessment and Plan Assessment: 1. L5-S1 spondylosis; L5-S1 grade 1 spondylolisthesis; left lower extremity radiculopathy - Postoperative day 1 status post [id number] decompression fusion Plan: 1. L5-S1 spondylosis; L5-S1 grade 1 spondylolisthesis; left lower extremity radiculopathy - surgery performed yesterday, 06/13/2022 [id number] decompression fusion. Patient was in severe pain overnight. Patient did remove deep drain overnight. Superficial drain remains in place at this time. Optifoam dressing is intact. Marli are well aligned and intact at this time. We will continue follow patient while in hospital. LSO brace while up and about. [place] may be removed. Discharge pending 2. Appreciate medical management 3. Pain management - gabapentin; oxycodone; Flexeril; Tylenol 4. DVT prophylaxis - mechanical 5. GI prophylaxis - senna; Maalox; milk of magnesia 6. PT/OT - weightbearing as tolerated with walker and LSO brace on while up and about. 7. Encourage incentive spirometer use 8. Discharge planning - pending Time with Patient: Less than 30
[2022-06-14 10:49] LABS: Basophils # (A) 0.02 X 10*3/uL (0.00-0.10); Basophils % (A) 0.1 %; Eosinophils # (A) 0 X 10*3/uL (0.04-0.35); Eosinophils % (A) 0 %; HGB 8.3 g/dL (12.0-15.0); Immature Grans, Automated 0.6 %; Lymphocytes # (A) 1.08 X 10*3/uL (0.90-5.00); MCH 31.2 pg (27.0-32.0); MCHC 31.9 g/dL (32.0-37.0); MCV 97.7 fL (80.0-97.0); Mean Platelet Volume 10.7 fL (9.5-12.2); Monocytes # (A) 1.03 X 10*3/uL (0.20-1.00); Monocytes % (A) 6.7 %; NRBC Per 100 WBC 0 /100 WBCS (0.0-0.0); Neutrophils # (A) 13.18 X 10*3/uL (1.80-7.70); Neutrophils % (A) 85.6 %; Platelet Count 261 X 10*3/uL (140-440); RBC 2.66 X 10*6/uL (4.10-5.20); RDW 13.1 % (11.5-14.5); WBC 15.41 X 10*3/uL (4.50-10.00)
[2022-06-14 11:08] LABS: African American GFR (CKD) 122.3 (60.0-200.0); Anion Gap 8.4 mmol/L (10.00-18.00); BUN/Creat Ratio 19.17 Ratio (12.00-20.00); Blood Urea Nitrogen 11.5 mg/dL (9.0-27.0); Calcium 8.8 mg/dL (8.7-10.3); Carbon Dioxide 27.6 mmol/L (20.0-27.5); Non-African American GFR(CKD) 105.5 (60.0-200.0); Potassium 4.7 mmol/L (3.5-5.5)
--- NOTE | 2022-06-14 11:11 | P.PN ---
Subjective Progress Note Date: 06/14/22 The patient is a 52-year-old female with a PMH of chronic lower back pain who was admitted for an elective L2-pelvis decompression and fusion. The patient underwent the procedure earlier today with no immediate postoperative consultations and was seen on the surgical unit. Patient was seen and examined. No acute events overnight. Patient reports significant pain in her bilateral lower extremities. States that Dilaudid works only for 30 minutes. She has no other complaints. General: non toxic, in moderate pain, appears at stated age, obese Derm: no unusual rashes/lesions, warm Head: atraumatic, normocephalic, symmetric Eyes: EOMI, no lid lag, anicteric sclera ENT: Nose and ears atraumatic Neck: No cervical lymphadenopathy, trachea midline, supple Mouth: no lip lesion, mucus membranes moist Cardiovascular: S1S2 reg, no murmur, no edema Lungs: CTA bilateral, no rhonchi, no rales, no accessory muscle use Ext: muscle strength 5 out of 5 in all 4 extremities grossly, no gross muscle atrophy, no contractures Neuro: no gross focal neuro deficits Psych: Alert, oriented, appropriate affect #Chronic lower back pain status post L2-pelvis decompression and fusion #Leukocytosis #Acute blood loss anemia Leukocytosis likely steroid-induced. No signs of infection. Expected blood loss from surgery. Hemoglobin 8.3. Repeat CBC tomorrow morning. Management as per orthopedic surgery. DVT prophylaxis: SCD Discussed with: Patient, nurse Anticipated discharge: 1-[address]: Home A total of 20 minutes was spent on the care of this complex patient more than 50% of the time was spent in counseling and care coordination. Objective - Vital Signs Vital signs: Vital Signs Temp 98.4 F 06/14/22 08:00 Pulse 71 06/14/22 08:00 Resp 18 06/14/22 08:00 BP 103/66 06/14/22 08:00 Pulse Ox 91 L 06/14/22 08:00 FiO2 Intake & Output 06/13/22 06/14/22 06/14/22 18:59 06:59 18:59 Intake Total 4752 Output Total 2090 1400 200 Balance 2662 -1400 -200 Weight 106.4 kg Intake: IV 4752 Output: Drainage 200 Left Back 200 Urine 490 1400 Estimated Blood Loss 1600 Other: Voiding Method Indwelling Catheter Indwelling Catheter - Labs CBC & Chem 7: 06/14/22 06:03 06/14/22 06:03 Labs: Abnormal Lab Results - Last 24 Hours (Table) 06/14/22 06/14/22 Range/Units 06:03 06:03 WBC 15.41 H (4.50-10.00) X 10*3/uL RBC 2.66 L (4.10-5.20) X 10*6/uL Hgb 8.3 L (12.0-15.0) g/dL Hct 26.0 L (37.2-46.3) % MCV 97.7 H (80.0-97.0) fL MCHC 31.9 L (32.0-37.0) g/dL Immature Gran # 0.10 H (0.00-0.04) X 10*3/uL Neutrophils # 13.18 H (1.80-7.70) X 10*3/uL Monocytes # 1.03 H (0.20-1.00) X 10*3/uL Eosinophils # 0 L (0.04-0.35) X 10*3/uL Carbon Dioxide 27.6 H (20.0-27.5) mmol/L Anion Gap 8.40 L (10.00-18.00) mmol/L Glucose 133 H (70-110) mg/dL
[2022-06-14] MEDS ORDERED: oxyCODONE-APAP 10-325MG 1 EACH TAB PO SCH (11:16)
[2022-06-14] MEDS: GABAPENTIN 300 MG CAP PO SCH ×2 (16:05→19:54)
[2022-06-15] MEDS: HYDROmorphone 1 MG/ML 1 ML SYRINGE IVP PRN (00:29)
[2022-06-15] MEDS: ACETAMINOPHEN TAB 500 MG TAB PO SCH ×4 (00:29→18:40)
[2022-06-15] MEDS: DEXAMETHASONE SOD PHOSPHATE 4 MG/ML 1 ML VIAL IVP SCH ×5 (02:30→20:44)
[2022-06-15] MEDS: HYDROmorphone 0.5 MG/0.5 ML SYRINGE IVP PRN ×5 (05:57→22:03)
[2022-06-15] MEDS: GABAPENTIN 300 MG CAP PO SCH ×3 (07:34→20:44)
--- NOTE | 2022-06-15 09:11 | P.PN ---
Subjective Progress Note Date: 06/15/22 Principal diagnosis: L5-S1 spondylosis; L5-S1 grade 1 spondylolisthesis; left lower extremity radiculopathy Patient was seen at bedside this morning lying semirecumbent position with [place] in place. Patient says she did stand up yesterday and walk to the chair and sat in the chair for about 10 minutes. Patient says her pain is under much better control this morning. Patient says she is still having some numbness/tingling in her lower extremities. Patient says she has pain in her low back as well as in her left foot. Patient says she has been using brace while up and about. Patient says she has not had bowel movement yet, however, patient says she has been passing gas. Patient denies chest pain, fever, shortness of breath, nausea, vomiting, change in vision, loss of bowel/bladder control. Objective - Vital Signs Vital signs: Vital Signs Temp 98.7 F 06/15/22 07:59 Pulse 88 06/15/22 07:59 Resp 16 06/15/22 07:59 BP 103/58 06/15/22 07:59 Pulse Ox 96 06/15/22 07:59 FiO2 Intake & Output 06/14/22 06/15/22 06/15/22 18:59 06:59 18:59 Intake Total 1080 Output Total 2525 1670 Balance -1445 -1670 Intake: Oral 1080 Output: Drainage 300 170 Left Back 300 170 Urine 2225 1500 Other: Voiding Method Indwelling Catheter Indwelling Catheter - Exam optifoam dressing in place over spine at this time. optifoam dressing removed and new dressing placed over incision. [place] well aligned and intact. incision Clean, dry intact. Deep drain is no longer in place at this time. There is drain sponge and Tegaderm over deep drain incision. Superficial drain is still in place at this time with serosanguineous drainage present on suction. Superficial drain sponge removed and new dressing placed. Sensation is equal, symmetric, bilaterally intact throughout the upper and lower extremities. There is moderate TTP along the incision on lumbar spine. There is also some paravertebral tenderness in this region. Nontender to palpation throughout rest of exam. Patient has full range of motion bilateral upper extremities. Patient does have limited range of motion in left lower extremity and hip flexion/extension as well as knee flexion/extension and ankle dorsi/plantar flexion. Patient does have some limited range of motion right hip flexion/tension. Patient's range of motion right knee flexion/extension and ankle dorsi/plantar flexion. 4+/5 in all major motor groups in left lower extremity. 5/5 in all major motor groups in lower extremity. Neurovascular status is intact. Radial pulse intact, 2+ bilaterally. Cap refill is under 3 seconds in digits of upper extremities. Negative Homans bilaterally. Negative clonus bilaterally. negative Homans bilaterally. - Labs CBC & Chem 7: 06/14/22 06:03 06/14/22 06:03 Labs: Abnormal Lab Results - Last 24 Hours (Table) 06/14/22 06/14/22 Range/Units 06:03 06:03 WBC 15.41 H (4.50-10.00) X 10*3/uL RBC 2.66 L (4.10-5.20) X 10*6/uL Hgb 8.3 L (12.0-15.0) g/dL Hct 26.0 L (37.2-46.3) % MCV 97.7 H (80.0-97.0) fL MCHC 31.9 L (32.0-37.0) g/dL Immature Gran # 0.10 H (0.00-0.04) X 10*3/uL Neutrophils # 13.18 H (1.80-7.70) X 10*3/uL Monocytes # 1.03 H (0.20-1.00) X 10*3/uL Eosinophils # 0 L (0.04-0.35) X 10*3/uL Carbon Dioxide 27.6 H (20.0-27.5) mmol/L Anion Gap 8.40 L (10.00-18.00) mmol/L Glucose 133 H (70-110) mg/dL Assessment and Plan Assessment: 1. L5-S1 spondylosis; L5-S1 grade 1 spondylolisthesis; left lower extremity radiculopathy - Postoperative day 2 status post [id number] decompression fusion Plan: 1. L5-S1 spondylosis; L5-S1 grade 1 spondylolisthesis; left lower extremity radiculopathy - surgery performed 06/13/2022 [id number] decompression fusion. Patient pain is under better control this morning. Superficial drain remains in place at this time with 170 cc output as of 7:00 this morning. Maintain and record output at this time. Optifoam dressing is intact. [place] are well aligned and intact at this time. We will continue follow patient while in hospital. LSO brace while up and about. Remove [place]. Discharge tmrw vs Sunday. 2. Appreciate medical management 3. Pain management - gabapentin; oxycodone; Flexeril; Tylenol 4. DVT prophylaxis - mechanical 5. GI prophylaxis - senna; Maalox; milk of magnesia 6. PT/OT - weightbearing as tolerated with walker and LSO brace on while up and about. 7. Encourage incentive spirometer use 8. Discharge planning - plan for discharge tmrw vs Sunday. Time with Patient: Less than 30
[2022-06-15 10:32] LABS: HCT 25.4 % (37.2-46.3); HGB 8.2 g/dL (12.0-15.0); MCH 32.4 pg (27.0-32.0); MCHC 32.3 g/dL (32.0-37.0); MCV 100.4 fL (80.0-97.0); Mean Platelet Volume 11.3 fL (9.5-12.2); NRBC Per 100 WBC 0 /100 WBCS (0.0-0.0); Platelet Count 264 X 10*3/uL (140-440); RBC 2.53 X 10*6/uL (4.10-5.20); RDW 13.2 % (11.5-14.5); WBC 15.88 X 10*3/uL (4.50-10.00)
--- NOTE | 2022-06-15 11:45 | P.PN ---
Subjective Progress Note Date: 06/15/22 The patient is a 52-year-old female with a PMH of chronic lower back pain who was admitted for an elective L2-pelvis decompression and fusion. The patient underwent the procedure earlier today with no immediate postoperative consultations and was seen on the surgical unit. Patient was seen and examined. No acute events overnight. Patient reports significant pain in her bilateral lower extremities, 6/10 in severity. General: non toxic, in moderate pain, appears at stated age, obese Derm: no unusual rashes/lesions, warm Head: atraumatic, normocephalic, symmetric Eyes: EOMI, no lid lag, anicteric sclera ENT: Nose and ears atraumatic Neck: No cervical lymphadenopathy, trachea midline, supple Mouth: no lip lesion, mucus membranes moist Cardiovascular: S1S2 reg, no murmur, no edema Lungs: CTA bilateral, no rhonchi, no rales, no accessory muscle use Ext: muscle strength 5 out of 5 in all 4 extremities grossly, no gross muscle atrophy, no contractures Neuro: no gross focal neuro deficits Psych: Alert, oriented, appropriate affect #Chronic lower back pain status post L2-pelvis decompression and fusion #Leukocytosis #Acute blood loss anemia Leukocytosis likely steroid-induced. No signs of infection. Expected blood loss from surgery. Hemoglobin 8.2. Repeat CBC tomorrow morning. Management as per orthopedic surgery. DVT prophylaxis: SCD Discussed with: Patient, nurse Anticipated discharge: 1-[address]: Home A total of 20 minutes was spent on the care of this complex patient more than 50% of the time was spent in counseling and care coordination. Objective - Vital Signs Vital signs: Vital Signs Temp 98.7 F 06/15/22 07:59 Pulse 88 06/15/22 07:59 Resp 16 06/15/22 07:59 BP 103/58 06/15/22 07:59 Pulse Ox 96 06/15/22 07:59 FiO2 Intake & Output 06/14/22 06/15/22 06/15/22 18:59 06:59 18:59 Intake Total 1080 Output Total 2525 1670 1000 Balance -3345 -8306 -1000 Intake: Oral 1080 Output: Drainage 300 170 Left Back 300 170 Urine 2225 1500 1000 Uretheral ([place]) 1000 Other: Voiding Method Indwelling Catheter Indwelling Catheter - Labs CBC & Chem 7: 06/15/22 06:50 06/14/22 06:03 Labs: Abnormal Lab Results - Last 24 Hours (Table) 06/15/22 Range/Units 06:50 WBC 15.88 H (4.50-10.00) X 10*3/uL RBC 2.53 L (4.10-5.20) X 10*6/uL Hgb 8.2 L (12.0-15.0) g/dL Hct 25.4 L (37.2-46.3) % MCV 100.4 H (80.0-97.0) fL MCH 32.4 H (27.0-32.0) pg
[2022-06-15] MEDS: CYCLOBENZAPRINE 10 MG TAB PO PRN (15:10)
[2022-06-15] MEDS: LACTATED RINGERS 1,000 ML IV SCH (15:27)
[2022-06-16] MEDS: ACETAMINOPHEN TAB 500 MG TAB PO SCH ×4 (00:52→18:18)
[2022-06-16] MEDS: HYDROmorphone 0.5 MG/0.5 ML SYRINGE IVP PRN ×2 (03:01→07:32)
[2022-06-16] MEDS: DEXAMETHASONE SOD PHOSPHATE 4 MG/ML 1 ML VIAL IVP SCH ×2 (03:02→08:42)
[2022-06-16] MEDS: CYCLOBENZAPRINE 10 MG TAB PO PRN ×2 (04:18→22:44)
[2022-06-16] MEDS: GABAPENTIN 300 MG CAP PO SCH ×3 (08:44→20:51)
[2022-06-16 10:04] LABS: HCT 23.3 % (37.2-46.3); HGB 7.4 g/dL (12.0-15.0); MCH 31.8 pg (27.0-32.0); MCHC 31.8 g/dL (32.0-37.0); Mean Platelet Volume 11.5 fL (9.5-12.2); NRBC Per 100 WBC 0 /100 WBCS (0.0-0.0); Platelet Count 220 X 10*3/uL (140-440); RBC 2.33 X 10*6/uL (4.10-5.20); RDW 13.2 % (11.5-14.5); WBC 12.66 X 10*3/uL (4.50-10.00)
--- NOTE | 2022-06-16 10:44 | P.PN ---
Subjective Progress Note Date: 06/16/22 Principal diagnosis: L5-S1 spondylosis; L5-S1 grade 1 spondylolisthesis; left lower extremity radiculopathy Patient was seen at bedside this morning sitting up at the edge of bed. Patient says she did do well with physical therapy this morning. Patient says she was able to walk down the hallways and up and down steps. Patient says her pain is under much better controlled today. Patient says she is still having some numbness/tingling in her lower extremities. Patient says she has pain in her low back as well as in her left foot. Patient says she has been using brace wh ile up and about. Patient says she has not had bowel movement yet, however, patient says she has been passing gas. Patient denies chest pain, fever, shortness of breath, nausea, vomiting, change in vision, loss of bowel/bladder control. Objective - Vital Signs Vital signs: Vital Signs Temp 98.4 F 06/16/22 08:00 Pulse 73 06/16/22 08:00 Resp 17 06/16/22 08:00 BP 99/56 06/16/22 08:00 Pulse Ox 98 06/16/22 08:00 FiO2 Intake & Output 06/15/22 06/16/22 06/16/22 18:59 06:59 18:59 Output Total 1005 Balance -1005 Output: Urine 1005 Uretheral ([place]) 1000 Other: Voiding Method Indwelling Catheter # Voids 3 - Exam optifoam dressing in place over spine at this time. optifoam dressing removed and new dressing placed over incision. Marli well aligned and intact. incision Clean, dry intact. Deep drain is no longer in place at this time. There is drain sponge and Tegaderm over deep drain incision. Superficial drain was removed overnight. Patient thinks drain came out when she turned in bed. sponge and tape is over superficial drain incision. Sensation is equal, symmetric, bilaterally intact throughout the upper and lower extremities. There is moderate TTP along the incision on lumbar spine. There is also some paravertebral tenderness in this region. Nontender to palpation throughout rest of exam. Patient has full range of motion bilateral upper extremities. Patient does have limited range of motion in left lower extremity and hip flexion/extension as well as knee flexion/extension and ankle dorsi/plantar flexion. Patient does have some limited range of motion right hip flexion/tension. Patient's range of motion right knee flexion/extension and ankle dorsi/plantar flexion. 4+/5 in all major motor groups in left lower extremity. 5/5 in all major motor groups in lower extremity. Neurovascular status is intact. Radial pulse intact, 2+ bilaterally. Cap refill is under 3 seconds in digits of upper extremities. Negative Homans bilaterally. Negative clonus bilaterally. negative Homans bilaterally. - Labs CBC & Chem 7: 06/16/22 06:02 06/14/22 06:03 Labs: Abnormal Lab Results - Last 24 Hours (Table) 06/15/22 06/16/22 Range/Units 06:50 06:02 WBC 15.88 H 12.66 H (4.50-10.00) X 10*3/uL RBC 2.53 L 2.33 L (4.10-5.20) X 10*6/uL Hgb 8.2 L 7.4 L (12.0-15.0) g/dL Hct 25.4 L 23.3 L (37.2-46.3) % MCV 100.4 H 100.0 H (80.0-97.0) fL MCH 32.4 H (27.0-32.0) pg MCHC 31.8 L (32.0-37.0) g/dL Assessment and Plan Assessment: 1. L5-S1 spondylosis; L5-S1 grade 1 spondylolisthesis; left lower extremity radiculopathy - Postoperative day 3 status post [id number] decompression fusion Plan: 1. L5-S1 spondylosis; L5-S1 grade 1 spondylolisthesis; left lower extremity radiculopathy - surgery performed 06/13/2022 [id number] decompression fusion. Patient did very well with therapy this morning. Patient was able to walk down the hallway and up and down stairs using waker. Patient does have walker for home. New optifoam dressing placed over incision. [place] are well aligned and intact at this time. We will continue follow patient while in hospital. LSO brace while up and about. Discharge today vs tmrw. 2. Appreciate medical management 3. Pain management - gabapentin; oxycodone; Flexeril; Tylenol 4. DVT prophylaxis - mechanical 5. GI prophylaxis - senna; Maalox; milk of magnesia 6. PT/OT - weightbearing as tolerated with walker and LSO brace on while up and about. 7. Encourage incentive spirometer use 8. Discharge planning - plan for discharge today vs tmrw. Time with Patient: Less than 30
[2022-06-16] MEDS ORDERED: DEXAMETHASONE SOD PHOSPHATE 4 MG/ML 1 ML VIAL IVP SCH (11:00)
--- NOTE | 2022-06-16 11:14 | P.PN ---
Subjective Progress Note Date: 06/16/22 The patient is a 52-year-old female with a PMH of chronic lower back pain who was admitted for an elective L2-pelvis decompression and fusion. The patient underwent the procedure earlier today with no immediate postoperative consultations and was seen on the surgical unit. Patient was seen and examined. No acute events overnight. Patient reports continued pain in her bilateral lower extremities. General: non toxic, in moderate pain, appears at stated age, obese Derm: no unusual rashes/lesions, warm Head: atraumatic, normocephalic, symmetric Eyes: EOMI, no lid lag, anicteric sclera ENT: Nose and ears atraumatic Neck: No cervical lymphadenopathy, trachea midline, supple Mouth: no lip lesion, mucus membranes moist Cardiovascular: S1S2 reg, no murmur, no edema Lungs: CTA bilateral, no rhonchi, no rales, no accessory muscle use Ext: muscle strength 5 out of 5 in all 4 extremities grossly, no gross muscle atrophy, no contractures Neuro: no gross focal neuro deficits Psych: Alert, oriented, appropriate affect #Chronic lower back pain status post L2-pelvis decompression and fusion #Leukocytosis #Acute blood loss anemia Leukocytosis likely steroid-induced. No signs of infection. Expected blood loss from surgery. Hemoglobin 7.4. Repeat CBC tomorrow morning. Management as per orthopedic surgery. DVT prophylaxis: SCD Discussed with: Patient, nurse Anticipated discharge: 1-[address]: Home A total of 20 minutes was spent on the care of this complex patient more than 50% of the time was spent in counseling and care coordination. Objective - Vital Signs Vital signs: Vital Signs Temp 98.4 F 06/16/22 08:00 Pulse 73 06/16/22 08:00 Resp 17 06/16/22 08:00 BP 99/56 06/16/22 08:00 Pulse Ox 98 06/16/22 08:00 FiO2 Intake & Output 06/15/22 06/16/22 06/16/22 18:59 06:59 18:59 Output Total 1005 Balance -1005 Output: Urine 1005 Uretheral ([place]) 1000 Other: Voiding Method Indwelling Catheter # Voids 3 - Labs CBC & Chem 7: 06/16/22 06:02 06/14/22 06:03 Labs: Abnormal Lab Results - Last 24 Hours (Table) 09/30/22 Range/Units 06:02 WBC 12.66 H (4.50-10.00) X 10*3/uL RBC 2.33 L (4.10-5.20) X 10*6/uL Hgb 7.4 L (12.0-15.0) g/dL Hct 23.3 L (37.2-46.3) % MCV 100.0 H (80.0-97.0) fL MCHC 31.8 L (32.0-37.0) g/dL
--- NOTE | 2022-06-16 12:15 | P.DS ---
Providers Date of admission: 06/13/22 05:40 Expected date of discharge: 06/16/22 Attending physician: Paul Clark DO Consults: 06/13/22 13:47 Consult Physician Routine Consulting Provider: Dread Joyner Consult Reason/Comments: Medical Management Do you want consulting provider notified?: Yes Primary care physician: Bhavesh Langley MD Hospital Course: Date of admission: 06/13/2022 Date of discharge: 06/16/2022 Admission diagnosis: L5-S1 spondylosis; L5-S1 grade 1 spondylolisthesis; left lower extremity radiculopathy Discharge diagnosis: Same Attending physician: Dr. Clark Surgical procedures: [id number] decompression and fusion Brief history: Patient is a 52-year-old female with a history of L5-S1 spondylosis; L5-S1 grade 1 spondylolisthesis; left lower extremity radiculopathy. At this point patient has failed conservative treatment measures and has opted to proceed with a elective [id number] decompression and fusion. Hospital course: Details of patient's surgery can be found in operative report. Patient tolerated the procedure well and was subsequently transported to orthopedic floor. Patient's orthopeidc and medical care was provided daily. Patient had daily laboratory tests performed for evaluation of overall blood counts. Patient had daily physical therapy to include strengthening range of motion as well as education with walker ambulation. Patient was noted to have a relatively uneventful postoperative course. Patient reported satisfactory pain control with oral pain medications by postoperative day 3. Patient showed satisfactory progress with physical therapy. Patient moved steadily through the program and had no difficulty meeting the goals by postoperative day 3. Given patient's otherwise satisfactory course and having met physical therapy goals, plan is to discharge patient home with health services on postoperative day 3. Discharge condition/disposition: Patient will be discharged home with health services in stable condition. Discharge medications: Instructions are given on resumption of patient's normal daily medications per primary care recommendation, in addition patient will be prescribed oxycodone 10 mg/325 mg; Duricef; gabapentin; Flexeril; senna. Spine Discharge and Recovery Instructions Date of Surgery: 06/13/2022 Diagnosis: L5-S1 spondylosis; L5-S1 grade 1 spondylolisthesis; left lower extremity radiculopathy Procedure: [id number] decompression and fusion Medications: See medication list All medication refills should be obtained through your primary care doctor or your clinic spine surgeon. Please discuss prescription refills at your follow up appointment. Do not call the hospital for medication refills. Dressing: Leave your dressing in place for a total of 5 days post operatively. Then you may remove your dressing and leave open to air. Keep the area clean and if not able to keep area clean, then cover with sterile gauze and tape. Showering: You may shower 3 days after your procedure allowing soap and water to run over incision. Do not scrub. Do not soak. Blot dry. Follow up: Please confirm a follow up appointment with your surgeon 3 weeks post operatively. Please make an appointment to follow up with your PCP in 1-2 weeks after surgery for evaluation 3 phase, 3-week plan POST OP WEEKS 1-3 1. Lifting/carrying/pushing/pulling limited to less than 5 pounds. 2. Do not sit for longer than 15 minutes at one time. Get up and walk around. Prolonged sitting is NOT advised. If you lay down, see if you can tolerate laying down on you front (belly side) 3. Walk for periods of 15 minutes = 1 mile but no longer; do it multiple times times each day. 4. Ice your low back after activity. POST OP WEEKS 3-6 1. Lifting limited to less than 20 pounds. 2. Do not sit for longer than 30 minutes at a time. Frequently change positions. Use a sit-to stand workstation or take frequent breaks from sitting if you have returned to work. 3. Walk for 30 minutes each day. If possible, do these three or more times a day POST OP WEEKS 6+ At your 6-week appointment we will give you a physical therapy referral to focus on a core stabilization and strengthening program. You should also work on leg & buttock strengthening, hamstring & quadriceps stretching, and continue a low impact aerobic activity program such as swimming, walking, or riding a stationary bicycle. During the initial 6 weeks after your surgery, you are at the highest risk of re-injuring your spine. You should generally avoid BLTs (bending, lifting and twisting combination motions) and follow the above guidelines to reduce the chance of reinjury. You can anticipate post op appointments in our office at approximately 3 weeks and 6 weeks after your surgery. INCISION CARE: If your incision is not draining you do NOT need to cover it with a dressing. Keep your incision clean, dry and intact. In most cases, we apply skin glue, kylie or sutures to the incision at the time of surgery. This will be like a crust or have the appearance of a scab and will fall off in time on its own. The stitches or kylie need to be removed at 3 weeks post op appointment. You may begin to shower 3 days after surgery (this allows the glue to españa well). However, please avoid scrubbing the incision site or peeling off any of the skin glue. This will ensure optimal healing of your incision. Also, during this time avoid soaking the incision area in water - this includes swimming pools, hot tubs or baths. No ointments, lotions or oils on the incision until your surgeon allows. Leave kylie, sutures or glue in place. Neurological dysfunction that comes on suddenly can also be a sign of a stroke. Below some common symptoms of a stroke are listed: B - balance difficulty such as sudden onset walking or leaning to one side - NEW E - eye problem such as sudden double vision or trouble seeing on one side - NEW F - Facial weakness or numbness on one side - NEW A - Arm or leg weakness or numbness on one side - NEW S - Slurred speech or difficulty with word finding - NEW T - Time is BRAIN! Call 911 as soon as you recognize these symptoms Diet: Consume a regular diet rich in vegetables and lean protein such as chicken or fish. You should consume in a ratio of approximately 20% fats|40% carbohydrates|40%protein. Vegetables, sweet potatoes, brown rice or quinoa are examples of good carbohydrates. Chips, white bread, cookies and sweets/sugar are examples of bad carbohydrates. Limit your bad carbs, go wild with good carbs. "Life's Simple 7" Guidelines as per [place] [employer] These will help you reclaim your life after surgery and glazier helper in your recovery, keeping in mind your restrictions. (1) Get Active. Physical activity can help people lose weight, control high blood pressure and cholesterol, feel emotionally better, and sleep better. (2) Control Cholesterol. Avoid a diet high in saturated fat, trans fat, & cholesterol. Limit whole milk & cream, ice cream, butter, egg yolks, processed meats (like sausage and hot dogs), and fatty meats. Choose healthy foods that are low in saturated fat, trans fat and cholesterol which include: Fruits and vegetables, fiber rich grain products (like whole grain pasta and brown rice), lean meat such as chicken, fish, nuts, seeds, and legumes. (3) Eat Better. Eat small portions. Shop at the grocery with a list and do not stray from it. Tips for a healthy diet include: Limit sodium intake to less than 1500mg daily, avoid prepackaged, processed, and fast foods, choose a diet rich in fruits, vegetables, and whole grain, high fiber foods, and limit saturated & cholesterol in your diet. (4) Manage Blood Pressure. If you have high blood pressure, you should have a cuff at home so that you can check your blood pressure regularly. Be sure you have a good cuff. An arm one is generally better than a wrist one. Bring the cuff to a doctor's appointment to validate that the measurements that your cuff are taking are accurate. Take your blood pressure twice daily when you are sitting down and relaxing. Record the numbers in a log and bring this log with you to your doctors' appointments. (5) Lose Weight if your BMI is above 25. A healthy BMI is between 19-25. To calculate Your BMI, you may use a Standard BMI Calculator on the NIH BMI website: <www.nhlbi.nih.gov/guidelines/obesity/BMI/bmicalc.htm>. Weigh oneself daily. If you are overweight, set a goal to lose weight. A pound a week loss if needed is a good target. (6) Reduce Blood Sugar. Limit foods and liquids with "added sugars." (Added sugars include sucrose, fructose, glucose, maltose, dextrose, high fructose corn syrup, corn syrup, concentrated fruit juice and honey). (7) Stop Smoking. If you smoke, quitting smoking is one of the best things that you can do for your health. Smoking increases your risk of heart attack, stroke, and peripheral vascular disease, which is a build-up of plaque in your arteries. Please discard all the cigarettes and lighters in your house. Have a plan for what you will do when you have the urge to smoke. Direct and second- hand smoke shortens your life as well as the lives of your family, friends and others around you. For your health and the health of those around you, please consider quitting! Proper Bending Body Mechanics: Maintain a wide stance with one foot slightly in front of the other. Keep your back straight. Bend utilizing the strength in your hips and knees. Do not bend at the waist. Maintain the lifted object at your waist-level close to your body. Avoid lifting weight that causes immediately pain or pain anywhere in the body afterwards. Smoking/Nicotine If there was ever one thing that you could do to increase your overall health, decrease your risk of cardiovascular problems by about 39% the second you make the choice, it is to STOP SMOKING. Your body's most instant gratification is the second you stop smoking. We have all heard the studies, read the articles but it is true, smoking is extremely bad for your overall health, and moreover it is detrimental to your bone health. Nicotine, IN ANY FORM, kills bone cells, prevents your body from healing fractures, and significantly prolongs healing after surgery. In spine surgery specifically, it increases your risk of not healing your bones to create a fusion and increases your risk of having a revision surgery due to this up to 60%. I know it is hard. I know it feels impossible. But there are ways. Take control of your life. We are here to help you through it. And when you are ready, ask us and we can direct you to help if you desire. Use the START Plan to Quit Smoking (please visit the Helpguide.org website listed below for more information): S = Set a quit date. Choose a date within the next 2 weeks, so you have enough time to prepare without losing your motivation to quit. If you mainly smoke at work, quit on the weekend, so you have a few days to adjust to the change. T = Tell family, friends, and co-workers that you plan to quit. Let your friends and family in on your plan to quit smoking and tell them you need their support and encouragement to stop. Look for a quit maricarmen who wants to stop smoking as well. You can help each other get through the rough times. A = Anticipate and plan for the challenges you'll face while quitting. Most people who begin smoking again do so within the first 3 months. You can help yourself make it through by preparing ahead for common challenges, such as nicotine withdrawal and cigarette cravings. R = Remove cigarettes and other tobacco products from your home, car, and work. Throw away all your cigarettes (no emergency pack!), lighters, ashtrays, and matches. Wash your clothes and freshen up anything that smells like smoke. Shampoo your car, clean your drapes and carpet, and steam your furniture. T = Talk to your doctor about getting help to quit. Your doctor can prescribe medication to help with withdrawal and suggest other alternatives. If you can't see a doctor, you can get many products over the counter at your local pharmacy or grocery store, including the nicotine patch, nicotine lozenges, and nicotine gum. Resources for Quitting Smoking: <https://www.[place].gov/documents/[facility]/Quit_Tobacco_Resources_for_patients_313 480_7.pdf> Supplementation: Take recommended dosages of Vitamin D and Calcium to help fortify your bones and help them to heal. See your health maintenance packet for dosages and recommended levels. DVT/VTE prophylaxis: You will be given compression stockings from the hospital. Wear these daily for the first two weeks after surgery. You may take them off at night. You may be prescribed a medication to help thin your blood. Take this as directed. If you are not prescribed this medication, early and frequent ambulation has been shown to be the best prophylaxis to deep vein thrombosis and sequelae related to this event. Assessment: L5-S1 spondylosis; L5-S1 grade 1 spondylolisthesis; left lower extremity radiculopathy Procedures: [id number] decompression and fusion Patient Condition at Discharge: Good Plan - Discharge Summary Discharge Rx Participant: No New Discharge Prescriptions: New Gabapentin 300 mg PO TID #27 cap oxyCODONE-APAP 10-325MG [Percocet 10-325 mg] 1 tab PO Q4HR PRN #36 tab PRN Reason: Pain cefaDROXiL [Duricef] 500 mg PO Q12HR 5 Days #10 cap Cyclobenzaprine [Flexeril] 5 mg PO TID #20 tablet Sennosides/Docusate Sodium [Senna Plus 8.6-50 mg Tablet] 1 each PO BID #20 tab No Action oxyCODONE-APAP 10-325MG [Percocet 10-325 mg] 1 tab PO QID PRN PRN Reason: Pain Discharge Medication List oxyCODONE-APAP 10-325MG [Percocet 10-325 mg] 1 tab PO QID PRN 06/08/22 [History] Cyclobenzaprine [Flexeril] 5 mg PO TID #20 tablet 06/16/22 [Rx] Gabapentin 300 mg PO TID #27 cap 06/16/22 [Rx] Sennosides/Docusate Sodium [Senna Plus 8.6-50 mg Tablet] 1 each PO BID #20 tab 06/16/22 [Rx] cefaDROXiL [Duricef] 500 mg PO Q12HR 5 Days #10 cap 06/16/22 [Rx] oxyCODONE-APAP 10-325MG [Percocet 10-325 mg] 1 tab PO Q4HR PRN #36 tab 06/16/22 [Rx] Follow up Appointment(s)/Referral(s): [facility], [NON-STAFF] - As Needed Paul Clark DO [Doctor of Osteopathic Medicine] - 2 Weeks Bhavesh Langley MD [Primary Care Provider] - 1 Week Activity/Diet/Wound Care/Special Instructions: Spine Discharge and Recovery Instructions Optifoam dressing may be removed on Sunday06/19/2022. Keep incision clean, dry, intact Date of Surgery: 06/13/2022 Diagnosis: L5-S1 spondylosis; L5-S1 grade 1 spondylolisthesis; left lower extremity radiculopathy Procedure: [id number] decompression and fusion Medications: See medication list All medication refills should be obtained through your primary care doctor or your clinic spine surgeon. Please discuss prescription refills at your follow up appointment. Do not call the hospital for medication refills. Dressing: Leave your dressing in place for a total of 5 days post operatively. Then you may remove your dressing and leave open to air. Keep the area clean and if not able to keep area clean, then cover with sterile gauze and tape. Showering: You may shower 3 days after your procedure allowing soap and water to run over incision. Do not scrub. Do not soak. Blot dry. Follow up: Please confirm a follow up appointment with your surgeon 3 weeks post operatively. Please make an appointment to follow up with your PCP in 1-2 weeks after surgery for evaluation 3 phase, 3-week plan POST OP WEEKS 1-3 1. Lifting/carrying/pushing/pulling limited to less than 5 pounds. 2. Do not sit for longer than 15 minutes at one time. Get up and walk around. Prolonged sitting is NOT advised. If you lay down, see if you can tolerate laying down on you front (belly side) 3. Walk for periods of 15 minutes = 1 mile but no longer; do it multiple times times each day. 4. Ice your low back after activity. POST OP WEEKS 3-6 1. Lifting limited to less than 20 pounds. 2. Do not sit for longer than 30 minutes at a time. Frequently change positions. Use a sit-to stand workstation or take frequent breaks from sitting if you have returned to work. 3. Walk for 30 minutes each day. If possible, do these three or more times a day POST OP WEEKS 6+ At your 6-week appointment we will give you a physical therapy referral to focus on a core stabilization and strengthening program. You should also work on leg & buttock strengthening, hamstring & quadriceps stretching, and continue a low impact aerobic activity program such as swimming, walking, or riding a stationary bicycle. During the initial 6 weeks after your surgery, you are at the highest risk of re-injuring your spine. You should generally avoid BLTs (bending, lifting and twisting combination motions) and follow the above guidelines to reduce the chance of reinjury. You can anticipate post op appointments in our office at approximately 3 weeks and 6 weeks after your surgery. INCISION CARE: If your incision is not draining you do NOT need to cover it with a dressing. Keep your incision clean, dry and intact. In most cases, we apply skin glue, kylie or sutures to the incision at the time of surgery. This will be like a crust or have the appearance of a scab and will fall off in time on its own. The stitches or kylie need to be removed at 3 weeks post op appointment. You may begin to shower 3 days after surgery (this allows the glue to españa well). However, please avoid scrubbing the incision site or peeling off any of the skin glue. This will ensure optimal healing of your incision. Also, during this time avoid soaking the incision area in water - this includes swimming pools, hot tubs or baths. No ointments, lotions or oils on the incision until your surgeon allows. Leave kylie, sutures or glue in place. Neurological dysfunction that comes on suddenly can also be a sign of a stroke. Below some common symptoms of a stroke are listed: B - balance difficulty such as sudden onset walking or leaning to one side - NEW E - eye problem such as sudden double vision or trouble seeing on one side - NEW F - Facial weakness or numbness on one side - NEW A - Arm or leg weakness or numbness on one side - NEW S - Slurred speech or difficulty with word finding - NEW T - Time is BRAIN! Call 911 as soon as you recognize these symptoms Diet: Consume a regular diet rich in vegetables and lean protein such as chicken or fish. You should consume in a ratio of approximately 20% fats|40% carbohydrat es|40%protein. Vegetables, sweet potatoes, brown rice or quinoa are examples of good carbohydrates. Chips, white bread, cookies and sweets/sugar are examples of bad carbohydrates. Limit your bad carbs, go wild with good carbs. "Life's Simple 7" Guidelines as per [place] [employer] These will help you reclaim your life after surgery and glazier helper in your recovery, keeping in mind your restrictions. (1) Get Active. Physical activity can help people lose weight, control high blood pressure and cholesterol, feel emotionally better, and sleep better. (2) Control Cholesterol. Avoid a diet high in saturated fat, trans fat, & cholesterol. Limit whole milk & cream, ice cream, butter, egg yolks, processed meats (like sausage and hot dogs), and fatty meats. Choose healthy foods that are low in saturated fat, trans fat and cholesterol which include: Fruits and vegetables, fiber rich grain products (like whole grain pasta and brown rice), lean meat such as chicken, fish, nuts, seeds, and legumes. (3) Eat Better. Eat small portions. Shop at the grocery with a list and do not stray from it. Tips for a healthy diet include: Limit sodium intake to less than 1500mg daily, avoid prepackaged, processed, and fast foods, choose a diet rich in fruits, vegetables, and whole grain, high fiber foods, and limit saturated & cholesterol in your diet. (4) Manage Blood Pressure. If you have high blood pressure, you should have a cuff at home so that you can check your blood pressure regularly. Be sure you have a good cuff. An arm one is generally better than a wrist one. Bring the cuff to a doctor's appointment to validate that the measurements that your cuff are taking are accurate. Take your blood pressure twice daily when you are sitting down and relaxing. Record the numbers in a log and bring this log with you to your doctors' appointments. (5) Lose Weight if your BMI is above 25. A healthy BMI is between 19-25. To calculate Your BMI, you may use a Standard BMI Calculator on the NIH BMI website: <www.nhlbi.nih.gov/guidelines/obesity/BMI/bmicalc.htm>. Weigh oneself daily. If you are overweight, set a goal to lose weight. A pound a week loss if needed is a good target. (6) Reduce Blood Sugar. Limit foods and liquids with "added sugars." (Added sugars include sucrose, fructose, glucose, maltose, dextrose, high fructose corn syrup, corn syrup, concentrated fruit juice and honey). (7) Stop Smoking. If you smoke, quitting smoking is one of the best things that you can do for your health. Smoking increases your risk of heart attack, stroke, and peripheral vascular disease, which is a build-up of plaque in your arteries. Please discard all the cigarettes and lighters in your house. Have a plan for what you will do when you have the urge to smoke. Direct and second- hand smoke shortens your life as well as the lives of your family, friends and others around you. For your health and the health of those around you, please consider quitting! Proper Bending Body Mechanics: Maintain a wide stance with one foot slightly in front of the other. Keep your back straight. Bend utilizing the strength in your hips and knees. Do not bend at the waist. Maintain the lifted object at your waist-level close to your body. Avoid lifting weight that causes immediately pain or pain anywhere in the body afterwards. Smoking/Nicotine If there was ever one thing that you could do to increase your overall health, decrease your risk of cardiovascular problems by about 39% the second you make the choice, it is to STOP SMOKING. Your body's most instant gratification is the second you stop smoking. We have all heard the studies, read the articles but it is true, smoking is extremely bad for your overall health, and moreover it is detrimental to your bone health. Nicotine, IN ANY FORM, kills bone cells, prevents your body from healing fractures, and significantly prolongs healing after surgery. In spine surgery specifically, it increases your risk of not healing your bones to create a fusion and increases your risk of having a revision surgery due to this up to 60%. I know it is hard. I know it feels impossible. But there are ways. Take control of your life. We are here to help you through it. And when you are ready, ask us and we can direct you to help if you desire. Use the START Plan to Quit Smoking (please visit the Helpguide.org website listed below for more information): S = Set a quit date. Choose a date within the next 2 weeks, so you have enough time to prepare without losing your motivation to quit. If you mainly smoke at work, quit on the weekend, so you have a few days to adjust to the change. T = Tell family, friends, and co-workers that you plan to quit. Let your friends and family in on your plan to quit smoking and tell them you need their support and encouragement to stop. Look for a quit maricarmen who wants to stop smoking as well. You can help each other get through the rough times. A = Anticipate and plan for the challenges you'll face while quitting. Most people who begin smoking again do so within the first 3 months. You can help yourself make it through by preparing ahead for common challenges, such as nicotine withdrawal and cigarette cravings. R = Remove cigarettes and other tobacco products from your home, car, and work. Throw away all your cigarettes (no emergency pack!), lighters, ashtrays, and matches. Wash your clothes and freshen up anything that smells like smoke. Shampoo your car, clean your drapes and carpet, and steam your furniture. T = Talk to your doctor about getting help to quit. Your doctor can prescribe medication to help with withdrawal and suggest other alternatives. If you can't see a doctor, you can get many products over the counter at your local pharmacy or grocery store, including the nicotine patch, nicotine lozenges, and nicotine gum. Resources for Quitting Smoking: <https://www.[place].gov/documents/[facility]/Quit_Tobacco_Resources_for_patients_313 480_7.pdf> Supplementation: Take recommended dosages of Vitamin D and Calcium to help fortify your bones and help them to heal. See your health maintenance packet for dosages and recommended levels. DVT/VTE prophylaxis: You will be given compression stockings from the hospital. Wear these daily for the first two weeks after surgery. You may take them off at night. You may be prescribed a medication to help thin your blood. Take this as directed. If you are not prescribed this medication, early and frequent ambulation has been shown to be the best prophylaxis to deep vein thrombosis and sequelae related to this event. Discharge Disposition: HOME WITH HOME HEALTH SERVICES
[2022-06-16] MEDS: LACTATED RINGERS 1,000 ML IV SCH (18:19)
[2022-06-16] MEDS: CEPHALEXIN 500 MG CAP PO SCH (20:51)
[2022-06-17] MEDS: SENNOSIDES-DOCUSATE SODIUM 1 EACH TAB PO PRN ×2 (00:20→09:03)
[2022-06-17] MEDS: ACETAMINOPHEN TAB 500 MG TAB PO SCH ×4 (00:20→17:38)
[2022-06-17] MEDS: LACTATED RINGERS 1,000 ML IV SCH (06:19)
[2022-06-17 07:59] VITALS: RESP 16
[2022-06-17] MEDS: GABAPENTIN 300 MG CAP PO SCH ×4 (09:01→22:37)
[2022-06-17] MEDS: CEPHALEXIN 500 MG CAP PO SCH ×2 (09:03→20:15)
--- NOTE | 2022-06-17 09:38 | P.PN ---
Subjective Progress Note Date: 06/17/22 The patient is a 52-year-old female with a PMH of chronic lower back pain who was admitted for an elective L2-pelvis decompression and fusion. The patient underwent the procedure earlier today with no immediate postoperative consultations and was seen on the surgical unit. Patient was seen and examined. No acute events overnight. Patient reports continued pain in her bilateral lower extremities, 10/10 in severity. Complains of constipation. General: non toxic, in moderate pain, appears at stated age, obese Derm: no unusual rashes/lesions, warm Head: atraumatic, normocephalic, symmetric Eyes: EOMI, no lid lag, anicteric sclera ENT: Nose and ears atraumatic Neck: No cervical lymphadenopathy, trachea midline, supple Mouth: no lip lesion, mucus membranes moist Cardiovascular: S1S2 reg, no murmur, no edema Lungs: CTA bilateral, no rhonchi, no rales, no accessory muscle use Ext: muscle strength 5 out of 5 in all 4 extremities grossly, no gross muscle atrophy, no contractures Neuro: no gross focal neuro deficits Psych: Alert, oriented, appropriate affect #Chronic lower back pain status post L2-pelvis decompression and fusion #Leukocytosis #Acute blood loss anemia Leukocytosis likely steroid-induced. No signs of infection. Expected blood loss from surgery. Hemoglobin 7.4. Repeat CBC pending. Management as per orthopedic surgery. DVT prophylaxis: SCD Discussed with: Patient, nurse Anticipated discharge: 1-[address]: Home A total of 20 minutes was spent on the care of this complex patient more than 50% of the time was spent in counseling and care coordination. Objective - Vital Signs Vital signs: Vital Signs Temp 97.8 F 06/17/22 07:57 Pulse 61 06/17/22 07:57 Resp 16 06/17/22 07:57 BP 99/63 06/17/22 07:57 Pulse Ox 94 L 06/17/22 07:57 FiO2 Intake & Output 06/16/22 06/17/22 06/17/22 18:59 06:59 18:59 Intake Total 540 Balance 540 Intake: Oral 540 Other: Voiding Method Toilet Indwelling Catheter # Voids 6 4 1 - Labs CBC & Chem 7: 06/16/22 06:02 06/14/22 06:03 Labs: Abnormal Lab Results - Last 24 Hours (Table) 06/16/22 Range/Units 06:02 WBC 12.66 H (4.50-10.00) X 10*3/uL RBC 2.33 L (4.10-5.20) X 10*6/uL Hgb 7.4 L (12.0-15.0) g/dL Hct 23.3 L (37.2-46.3) % MCV 100.0 H (80.0-97.0) fL MCHC 31.8 L (32.0-37.0) g/dL
--- NOTE | 2022-06-17 11:17 | P.PN ---
Subjective Progress Note Date: 06/17/22 Principal diagnosis: L5-S1 spondylosis; L5-S1 grade 1 spondylolisthesis; left lower extremity radiculopathy Patient was seen at bedside this morning lying in semirecumbent position. Patient says she did do well with physical therapy yesterday. Patient says she was able to walk down the hallways and up and down steps. Patient says her pain is under much better controlled today. Patient says she is still having some numbness/tingling in her lower extremities. Patient says she has pain in her low back as well as in her left foot. Patient says she has been using brace while up and about. Patient says she has not had bowel movement yet, however, patient says she has been passing gas. Patient denies chest pain, fever, shortness of breath, nausea, vomiting, change in vision, loss of bowel/bladder control. Objective - Vital Signs Vital signs: Vital Signs Temp 97.8 F 06/17/22 07:57 Pulse 61 06/17/22 07:57 Resp 16 06/17/22 07:57 BP 99/63 06/17/22 07:57 Pulse Ox 94 L 06/17/22 07:57 FiO2 Intake & Output 06/16/22 06/17/22 06/17/22 18:59 06:59 18:59 Intake Total 540 Balance 540 Intake: Oral 540 Other: Voiding Method Toilet Indwelling Catheter # Voids 6 4 1 - Exam optifoam dressing in place over spine at this time. Sensation is equal, symmetric, bilaterally intact throughout the upper and lower extremities. There is moderate TTP along the incision on lumbar spine. There is also some paravertebral tenderness in this region. Nontender to palpation throughout rest of exam. Patient has full range of motion bilateral upper extremities. Patient does have limited range of motion in left lower extremity and hip flexion/extension as well as knee flexion/extension and ankle dorsi/plantar flexion. Patient does have some limited range of motion right hip flexion/tension. Patient's range of motion right knee flexion/extension and ankle dorsi/plantar flexion. 4+/5 in all major motor groups in left lower extremity. 5/5 in all major motor groups in lower extremity. Neurovascular status is intact. Radial pulse intact, 2+ bilaterally. Cap refill is under 3 seconds in digits of upper extremities. Negative Homans bilaterally. Negative clonus bilaterally. negative Homans bilaterally. - Labs CBC & Chem 7: 06/16/22 06:02 06/14/22 06:03 Assessment and Plan Assessment: 1. L5-S1 spondylosis; L5-S1 grade 1 spondylolisthesis; left lower extremity radiculopathy - Postoperative day 4 status post [id number] decompression fusion Plan: 1. L5-S1 spondylosis; L5-S1 grade 1 spondylolisthesis; left lower extremity radiculopathy - surgery performed 06/13/2022 [id number] decompression fusion. Patient did very well with therapy yesterday. Patient was able to walk down the hallway and up and down stairs using waker. Patient does have walker for home. Optifoam dressing in place over incision. Marli are well aligned and intact at this time. We will continue follow patient while in hospital. LSO brace while up and about. Patient unable to be discharged yesterday because pain medication cannot be filled until next week. Patient will stay in hospital for adequate pain control for now. Discharge home with health services on Sunday06/19/2022. 2. Appreciate medical management 3. Pain management - gabapentin; oxycodone; Flexeril; Tylenol 4. DVT prophylaxis - mechanical 5. GI prophylaxis - senna; Maalox; milk of magnesia 6. PT/OT - weightbearing as tolerated with walker and LSO brace on while up and about. 7. Encourage incentive spirometer use 8. Discharge planning - Discharge home with health services on Sunday06/19/2022 Time with Patient: Less than 30
[2022-06-17 12:04] LABS: HCT 23.6 % (34.0-46.0); HGB 7.6 gm/dL (11.4-16.0); Hypochromasia Moderate; MCHC 32.1 g/dL (31.0-37.0); MCV 99.6 fL (80.0-100.0); Mean Platelet Volume 7.9; Platelet Count 312 k/uL (150-450); RBC 2.36 m/uL (3.80-5.40); RDW 12.6 % (11.5-15.5)
[2022-06-17] MEDS: CYCLOBENZAPRINE 10 MG TAB PO PRN (16:42)
[2022-06-18] MEDS: ACETAMINOPHEN TAB 500 MG TAB PO SCH ×4 (03:16→18:03)
[2022-06-18] MEDS: LACTATED RINGERS 1,000 ML IV SCH (03:23)
[2022-06-18] MEDS: CEPHALEXIN 500 MG CAP PO SCH ×2 (08:55→20:30)
[2022-06-18] MEDS: GABAPENTIN 300 MG CAP PO SCH ×2 (08:55→16:18)
--- NOTE | 2022-06-18 10:53 | P.PN ---
Subjective Progress Note Date: 06/18/22 Principal diagnosis: L5-S1 spondylosis; L5-S1 grade 1 spondylolisthesis; left lower extremity radiculopathy Patient was seen at bedside this morning lying in semirecumbent position. Patient says she did do well with physical therapy. Patient says she was able to walk down the hallways and up and down steps. Patient says her pain is under much better control today. Patient says she is still having some numbness/tingling in her lower extremities. Patient says she has pain in her low back as well as in her left foot. Patient says she has been using brace while up and about. Patient says she has not had bowel movement yet, however, patient says she has been passing gas. Patient denies chest pain, fever, shortness of breath, nausea, vomiting, change in vision, loss of bowel/bladder control. Objective - Vital Signs Vital signs: Vital Signs Temp 98.3 F 06/18/22 07:59 Pulse 83 06/18/22 07:59 Resp 16 06/18/22 07:59 BP 91/55 06/18/22 07:59 Pulse Ox 97 06/18/22 07:59 FiO2 Intake & Output 06/17/22 06/18/22 06/18/22 18:59 06:59 18:59 Intake Total 540 Balance 540 Intake: Oral 540 Other: Voiding Method Toilet # Voids 1 1 - Exam optifoam dressing in place over spine at this time. Sensation is equal, symmetric, bilaterally intact throughout the upper and lower extremities. There is moderate TTP along the incision on lumbar spine. There is also some paravertebral tenderness in this region. Nontender to palpation throughout rest of exam. Patient has full range of motion bilateral upper extremities. Patient does have limited range of motion in left lower extremity and hip flexion/ext ension as well as knee flexion/extension and ankle dorsi/plantar flexion. Patient does have some limited range of motion right hip flexion/tension. Patient's range of motion right knee flexion/extension and ankle dorsi/plantar flexion. 4+/5 in all major motor groups in left lower extremity. 5/5 in all major motor groups in lower extremity. Neurovascular status is intact. Radial pulse intact, 2+ bilaterally. Cap refill is under 3 seconds in digits of upper extremities. Negative Homans bilaterally. Negative clonus bilaterally. negative Homans bilaterally. - Labs CBC & Chem 7: 06/17/22 11:05 06/14/22 06:03 Labs: Abnormal Lab Results - Last 24 Hours (Table) 06/17/22 Range/Units 11:05 RBC 2.36 L (3.80-5.40) m/uL Hgb 7.6 L (11.4-16.0) gm/dL Hct 23.6 L (34.0-46.0) % Assessment and Plan Assessment: 1. L5-S1 spondylosis; L5-S1 grade 1 spondylolisthesis; left lower extremity radiculopathy - Postoperative day 5 status post [id number] decompression fusion Plan: 1. L5-S1 spondylosis; L5-S1 grade 1 spondylolisthesis; left lower extremity radiculopathy - surgery performed 06/13/2022 [id number] decompression fusion. Patient doing well with PT. Patient was able to walk down the hallway and up and down stairs using waker. Patient does have walker for home. Optifoam dressing in place over incision. Marli are well aligned and intact at this time. We will continue follow patient while in hospital. LSO brace while up and about. Patient unable to be discharged yesterday because pain medication cannot be filled until next week. Patient will stay in hospital for adequate pain control for now. Discharge home with health services rw, 06/19/2022. 2. Appreciate medical management 3. Pain management - gabapentin; oxycodone; Flexeril; Tylenol 4. DVT prophylaxis - mechanical 5. GI prophylaxis - senna; Maalox; milk of magnesia 6. PT/OT - weightbearing as tolerated with walker and LSO brace on while up and about. 7. Encourage incentive spirometer use 8. Discharge planning - Discharge home with health services rw, Sunday06/19/2022 Time with Patient: Less than 30
--- NOTE | 2022-06-18 10:56 | P.PN ---
Subjective Progress Note Date: 06/18/22 The patient is a 52-year-old female with a PMH of chronic lower back pain who was admitted for an elective L2-pelvis decompression and fusion. The patient underwent the procedure earlier today with no immediate postoperative consultations and was seen on the surgical unit. Patient was seen and examined. No acute events overnight. Patient reports continued pain in her bilateral lower extremities, 10/10 in severity. Complains of constipation. General: non toxic, in moderate pain, appears at stated age, obese Derm: no unusual rashes/lesions, warm Head: atraumatic, normocephalic, symmetric Eyes: EOMI, no lid lag, anicteric sclera ENT: Nose and ears atraumatic Neck: No cervical lymphadenopathy, trachea midline, supple Mouth: no lip lesion, mucus membranes moist Cardiovascular: S1S2 reg, no murmur, no edema Lungs: CTA bilateral, no rhonchi, no rales, no accessory muscle use Ext: muscle strength 5 out of 5 in all 4 extremities grossly, no gross muscle atrophy, no contractures Neuro: no gross focal neuro deficits Psych: Alert, oriented, appropriate affect #Chronic lower back pain status post L2-pelvis decompression and fusion #Leukocytosis #Acute blood loss anemia Leukocytosis likely steroid-induced. No signs of infection. Expected blood loss from surgery. Hemoglobin 7.6. Continue to monitor. Management as per orthopedic surgery. DVT prophylaxis: SCD Discussed with: Patient, nurse Anticipated discharge: 1-[address]: Home A total of 20 minutes was spent on the care of this complex patient more than 50% of the time was spent in counseling and care coordination. Patient is medically stable. Objective - Vital Signs Vital signs: Vital Signs Temp 98.3 F 06/18/22 07:59 Pulse 83 06/18/22 07:59 Resp 16 06/18/22 07:59 BP 105/64 06/18/22 08:47 Pulse Ox 97 06/18/22 07:59 FiO2 Intake & Output 06/17/22 06/18/22 06/18/22 18:59 06:59 18:59 Intake Total 540 120 Balance 540 120 Intake: Oral 540 120 Other: Voiding Method Toilet # Voids 1 1 - Labs CBC & Chem 7: 06/17/22 11:05 06/14/22 06:03 Labs: Abnormal Lab Results - Last 24 Hours (Table) 06/17/22 Range/Units 11:05 RBC 2.36 L (3.80-5.40) m/uL Hgb 7.6 L (11.4-16.0) gm/dL Hct 23.6 L (34.0-46.0) %
[2022-06-19] MEDS: GABAPENTIN 300 MG CAP PO SCH ×2 (00:05→07:26)
[2022-06-19] MEDS: ACETAMINOPHEN TAB 500 MG TAB PO SCH ×3 (00:08→11:38)
[2022-06-19 02:55] VITALS: BP 90/54; PULSE 77; TEMP 98.5
[2022-06-19] MEDS ORDERED: SODIUM CHLORIDE 0.9% 500 ML 500 ML IV ONE (07:07)
[2022-06-19] MEDS: CEPHALEXIN 500 MG CAP PO SCH (07:26)
[2022-06-19] MEDS: LACTATED RINGERS 1,000 ML IV SCH (07:29)
--- NOTE | 2022-06-19 08:52 | P.PN ---
Subjective Progress Note Date: 06/19/22 Principal diagnosis: L5-S1 spondylosis; L5-S1 grade 1 spondylolisthesis; left lower extremity radiculopathy Patient seen and examined at bedside. Patient was resting in bed on her right side. Cara RN was present in room and was discussing with patient regarding her low blood pressure and pain management regimen. Patient verbalizes understanding. Surgical dressing is clean dry and intact. Patient reports that she has been ambulatory in room and working with physical therapy. Patient does report that she is comfortable with being discharged today. She denies any feve rs/chills, shortness of breath, or chest pain. Objective - Vital Signs Vital signs: Vital Signs Temp 98.5 F 06/19/22 02:00 Pulse 77 06/19/22 02:00 Resp 16 06/18/22 20:30 BP 90/54 06/19/22 04:29 Pulse Ox 97 06/19/22 02:00 FiO2 Intake & Output 06/18/22 06/19/22 06/19/22 18:59 06:59 18:59 Intake Total 360 Balance 360 Intake: Oral 360 Other: Voiding Method Toilet # Voids 3 - Exam Physical Examination General: The patient is awake and alert, in no acute distress Skin: Skin is warm and dry with no obvious rashes or lesions. Hairy patches absent, no dorsal skin dimples, no cafe au lait spots. Surgical incision to lumbar spine, dressing is CDI. Eye: Pupils are equal, round and reactive to light, extra-ocular movements are intact; there is normal conjunctiva bilaterally. Neck: The neck is supple, there is no tenderness and ROM intact. Cardiovascular: There is a regular rate and rhythm. No murmur, rub or gallop is appreciated. Respiratory: Lungs are clear to auscultation, respirations are non-labored, breath sounds are equal. Gastrointestinal: Soft, non-distended, non-tender abdomen . Back: There is no tenderness to palpation in the midline, paralumbar, parathoracic or buttocks region. There is no obvious deformity . Musculoskeletal: ROM limited secondary to pain and stiffness from surgical procedure. Shoulder abduction 5/5, elbow flexors 5/5, wrist dorsiflexors 5/5. finger abductor 5/5, post acute care nurse 5/5, hip flexor 4/5, knee flexor 4/5, ankle dorsiflexor 4/5, ankle plantarflexion 4/5 and extensor hallucis 4/5. Neurological: CN 2-12 intact. There are no obvious motor or sensory deficits. Movement and coordination equal and intact. Sensory exam to light touch intact C5-T1 and intact from L2-S1. Reflexes 2/4 in bilateral upper and lower extremities. Negative Hoffmans, babinski, and clonus signs. Psychiatric: Cooperative, appropriate mood & affect, normal judgment. - Labs CBC & Chem 7: 06/17/22 11:05 06/14/22 06:03 Assessment and Plan Assessment: Postoperative day 6 status post [id number] decompression fusion Plan: Plan: -Appreciate political consultant and team management. -Activity: Ambulate QID, OOB all meals, up and about, limit lifting bending twisting to less than 5 lbs. Use walker or cane if needed for stability. -Daily PT/OT, increase ambulation strength and balance. -Brace when up and about, not needed in bed or chair -Pain control: Adequate at this time -Meds: reviewed -GI ppx: senna, Miralax -DC rodriguez when up and about, bedside commode if needed -DVT PPX: Heparin -Hygiene: Shower today. Maintain dressing clean and dry. Meticulous cleaning after BMs away from the incision site -Encourage IS 10x/hr -Dispo: Anticipate discharge home today 06/19/22 *I reviewed and discussed this case with my attending Dr. Clark, whom has reviewed this chart and films and is in agreement with assessment and plan of care as outlined above. I have personally seen and examined the patient, performed the documentation and the assessment and plan as written. Number of minutes spent on the visit: 20m.
--- NOTE | 2022-06-19 10:41 | P.PN ---
Subjective Progress Note Date: 06/19/22 The patient is a 52-year-old female with a PMH of chronic lower back pain who was admitted for an elective L2-pelvis decompression and fusion. The patient underwent the procedure earlier today with no immediate postoperative consultations and was seen on the surgical unit. Patient was seen and examined. No acute events overnight. Patient reports continued pain in BL LE. Able to work with PT. General: non toxic, in moderate pain, appears at stated age, obese Derm: no unusual rashes/lesions, warm Head: atraumatic, normocephalic, symmetric Eyes: EOMI, no lid lag, anicteric sclera ENT: Nose and ears atraumatic Neck: No cervical lymphadenopathy, trachea midline, supple Mouth: no lip lesion, mucus membranes moist Cardiovascular: S1S2 reg, no murmur, no edema Lungs: CTA bilateral, no rhonchi, no rales, no accessory muscle use Ext: muscle strength 5 out of 5 in all 4 extremities grossly, no gross muscle atrophy, no contractures Neuro: no gross focal neuro deficits Psych: Alert, oriented, appropriate affect #Chronic lower back pain status post L2-pelvis decompression and fusion #Leukocytosis #Acute blood loss anemia Leukocytosis likely steroid-induced. No signs of infection. Expected blood loss from surgery. Hemoglobin 7.6. Continue to monitor. Management as per orthopedic surgery. DVT prophylaxis: SCD Anticipated discharge place: Home A total of 20 minutes was spent on the care of this complex patient more than 50% of the time was spent in counseling and care coordination. Patient is medically stable. Plans for DC home today. Objective - Vital Signs Vital signs: Vital Signs Temp 98.5 F 06/19/22 02:00 Pulse 77 06/19/22 02:00 Resp 16 06/18/22 20:30 BP 90/54 06/19/22 04:29 Pulse Ox 97 06/19/22 02:00 FiO2 Intake & Output 06/18/22 06/19/22 06/19/22 18:59 06:59 18:59 Intake Total 360 Balance 360 Intake: Oral 360 Other: Voiding Method Toilet # Voids 3 - Labs CBC & Chem 7: 06/17/22 11:05 06/14/22 06:03
--- NOTE | 2022-06-20 11:18 | P.OP ---
Date of Procedure: 06/13/22 Preoperative Diagnosis: 1. L2-S1 spondylosis severe with stenosis 2. LE radiculopathy 3. Neurogenic claudication 4. Mechanical low back pain 5. LE weakness Postoperative Diagnosis: 1. L2-S1 spondylosis severe with stenosis 2. LE radiculopathy 3. Neurogenic claudication 4. Mechanical low back pain 5. LE weakness Procedure(s) Performed: Posterior midline 1. L2-pelvis posteriolateral and interbody fusion (16958, [id number]) 2. L1-2 intradiscal 3 column osteotomy for deformity correction (55520) 3. Segmental instrumentation L2-Pelvis (65035) 4. Insertion of biomechanical devices L2-S1 (66346x8) 5. L2-S1 bilateral laminectomy, complete facetectomy and foraminotomy for deformity correction as well as extradural decompression beyond that needed for cage insertion (76422, [id number]) 6. Fixation of the caudal end of construct to the bony pelvis not the sacrum (11217) 7. Dural repair with fat graft (03177, 94309) 8. Use of [employer] 3D navigation for the placement of hardware (03547) 9. Use of intraoperative neuromonitoring Implants: -Melina [place] screw and renetta system -Amplify cages x2 -Globus Sable cages x2 -Autograft -Allograft -MagnetOs -iFactor Anesthesia: HOLLIE Surgeon: Paul Clark Town Marshal #1: Adan Griffiths (Was present and assisted in all aspects of the case from positioning to hardware to closure to dressing. ) Estimated Blood Loss (ml): 750 IV fluids (ml): 3,500 Urine output (ml): 500 Pathology: none sent Condition: stable Disposition: PACU Indications for Procedure: Ms. Winston is presenting for evaluation of lumbar pain. It was my pleasure to have seen and examined Ms. Winston. In our visit today we have had a chance to go over subjective complaints, physical examination findings and treatments including the natural course history without intervention and various interventional options. The patients imaging demonstrates: XRay taken on 11/30/21 of Lumbar Spine and pelvis: These are reviewed and demonstrate L5-S1 spondylolysis with grade I spondylolisthesis. There are likely bilateral pars defects in L5 based on these films and her listhesis. This is mobile on f/e films and has segmental angulation. There are no othe rfractures noted. There is disc height loss at this level as well as mild disc height loss at L4-5. There are no lesions noted. No other bony abnormalities. LL is maintained however alignment is listhesis. There is mild coronal collapse due to the disc height loss. AP pelvis demonstrates level pelvis w/o fracture CT scan without contrast from 12/14/2021 of lumbar spine: Images reviewed in the office and the patient demonstrated severe spondylosis from L2 through S1. There are vacuum disks at L2 3 L3 4 L4 5 and L5-S1 with severe disc collapse at L2-L3 with Modic endplate changes there is severe disc collapse at 3445 and 51 as well. There is retrolisthesis of L3 on L4. There is severe facet arthrosis L4 5 and L5-S1 as well as L2 3. There is no acute fracture or dislocation noted at this time there is listhesis of L5 on S1 with pars elongation. There is bony stenosis related to the's changes at these levels there is a disc osteophyte complex at L3-L4 noted. Scars is moderate central canal stenosis overall alignment is reasonably well maintained however there are some flattening of the normal lumbar lordosis secondary to the severe disc collapse. No lesions noted. MRI scan from 11/14/2021 of Lumbar Spine: Similar findings reviewed with patient. There is L5-S1 GI spondylolisthesis due to bilateral L 5 pars defects. There is disc dessication and height loss causing b/l foraminal stenosis R>L as well as central stenosis. There is ligam ental hypertrophy and facet overgrowth as well as spondylotic changes related to this spondylolysis. No other lesions or fractures noted at this time. On physical exam, Ms. Winston demonstrates severely restricted lumbar ROM with bilateral lower extremity radiculopathy and left lower extremity weakness with L5 dermatomal deficit. There is significant TTP through the paralumbar region as well as midline TTP through the L2-S1 region. Patient does also demonstrate left glute medius TTP as well. I have explained to the patient that as their condition progresses it will cause further neurological deficits and eventual paralysis. Based on the patients imaging, physical exam, and the rapid progression and disabling nature of their symptoms, at this time I recommend surgery in the form or a: L2-Pelvis Decompression and fusion. I discussed the risk and benefits of this procedure at length with Ms. Winston. The patient agreed to considered pursuing the procedure abovementioned. Prior to surgery, she should follow up with her PCP (Cardio, ID, IM etc) for clearance. Questions were invited and answered, and the patient wishes to proceed as outlined below. Currently, I am recommendin. L2-Pelvis Decompression and fusion 2.Follow up with PCP for surgical clearance 3.Review of surgical risks and benefits as well as an educational packet on the proposed surgical procedure. Description of Procedure: The patient was seen and examined in the preoperative area. All preoperative protocols were followed. Informed consent was obtained risks and benefits of the procedure were discussed at length. Risks including bleeding infection dam age to the surrounding tissue and risk of reoperation were discussed with the patient. Risk of anesthesia up to and including was a discussed with the patient. These are outlined in the risk review. They were willing to accept these risks and all of the risks of surgery. The patient was given a weight- based dose of antibiotics in the form of 2 g Ancef redosed every 4 hours. The patient was seen and evaluated by the anesthesia team who deemed them fit for surgery. The site was marked, the patient was willing to proceed with the procedure. The patient was transferred to the operative suite by the Department of anesthesia. They were then drifted off to sleep by the department anesthesia and GETA was performed. The patient tolerated this well. [place] catheter was placed by nursing staff, atraumatically. Once confirmation of lines and ventilation the patient was transferred to a prone Juan table very carefully. All bony prominences including wrists, elbows, axilla, chest, hips, and thighs, and feet were padded very well. Special attention was paid to the genitalia and these were padded accordingly. SCDs were placed on bilateral lower extremities and were connected. Arms were well padded and placed on arm boards up and out in the 90/90 position. Once in position, again we confirmed good ventilation capabilities and that lines were running appropriately. The patient's lumbosacral spine was then exposed. 1010s were placed outlining the incision site. Standard alcohol was used to clean the incision site and allowed to dry. C-arm was used to biomark the patient and confirm level for incision which was marked with a skin marker. Operative briefing was performed with all teams and everyone in agreement to proceed. The patient was then prepped and draped in a normal sterile fashion. Timeout was then performed and all parties were in agreement with the procedure to be performed. Midline skin incision was made over the previously bowel marked area and dissection taken down to the lumbar fascia which was then identified and cleaned with a Vigil. Midline fasciotomy was made and subperiosteal dissection taken down over the lamina of L2 through S1. Lateral fluoroscopic image confirmed the levels of surgery then continued dissection distally until the iliac and iliosacral junction was identified for the starting point of a modified iliac screw. Transverse processes were dissected out and decorticated using high- speed bur. We then proceeded with screw placement date spinous processes tracker was placed on S1 and clamped into position for [employer] navigation. We then irrigated the wound and obtained a 3-D intraoperative computed tomography scan using the [employer]. Once this was registered we confirmed its accuracy and it was accurate. We then proceeded with placement of hardware from L2 through S1 using the technique of a navigated bur to create a pest control pilot hole followed by a ball-tipped feeler followed by a navigated tap followed by a navigated screwdriver with a measured screw. Screws were all measured a ball-tipped probe was placed between the tap and the screw step in order to ensure within the 4 castle of the pedicle. Screws were placed bilaterally from L2 down to S1 using this technique. We then proceeded with placement of pelvic screws and lateral fluoroscopic images taken in the sciatic notches lined up we then use navigation as well as lateral fluoroscopy to select a starting point for the pelvic screws once this was selected a pest control pilot hole was made with the bur followed by a blunt paddle gear shifter this was then advanced in the correct trajectory towards the hip as well as using lateral fluoroscopic imaging. A 30 by 30 review looking down into the teardrop was then obtained and confirmed to be within the teardrop once this was confirmed initial pathway was tapped and a 5 x 85 screws were then placed bilaterally. They confirm placement of screws with a 30 by 30 iliac oblique view followed by AP view to visualize all screws and all screws were in safe position. We then able to test screws using intraoperative neuro monitoring and all screws tested above 15 mA. We then irrigated the wound and proceeded with decompression starting at L5-S1 bilateral laminectomy and complete facetectomy and foraminotomy was performed while performing the laminectomy on the right-hand side there was dural erosion from the stenosis which caused a small punctate dural lesion. This was identified promptly and packed with a Gelfoam. We then continued to remove the laminectomy site and decompress once decompression was complete we returned to the dural lesion a 5-0 Prolene stitch was selected and placed to Prolene stitches were placed and tightened Valsalva maneuver was performed and there was still a minor leak and so a fat graft was taken from subcutaneous fat and sewed into the dura with a 5- 0 Prolene once this was accomplished a Valsalva maneuver to 40 mmHg was performed and there was no further leak. We then placed a paddy over this and continued with our work the patient remained stable throughout this process. We then identified Nj's triangle at L5-S1 osteotome was used to enter the disc space of L5-S1 and complete discectomy was performed while protecting the neural elements using osteotome sequential bev pituitary down-biting curet and rongeurs. Once good bleeding endplates were encountered and visualized we then sized and selected for amplify cage. A mixture of I factor autograft and allograft was placed anterior within the disc space and impacted in position once in position the cage was selected and impacted protecting neural elements and the position under lateral fluoroscopic guidance. The cages then expanded confirmed to be anterior within the disc space and then expanded fully once expanded fully it was then locked into position using a locking screw was confirmed to be in good position on AP and lateral. We then proceeded with the L4-L5 level in similar fashion performing bilateral laminectomy complete facetectomy and foraminotomies we then mobilized the dural elements bilaterally and axis Kaminstein angle. Osteotome was passed into the disc space under l ateral fluoroscopic guidance we then sequentially shaved used down-biting curet removed disc material with a box osteotome as well which allowed for complete discectomy at this level. Once this was accomplished and good bleeding endplates were encountered we then sized for another amplify cage. Once this was sized allograft autograft and I factor were placed in the anterior portion of the disc space and impacted into position. All protecting neural elements then the amplify cage was selected and impacted into place. Was then expanded accordingly and once reach full expansion was locked into position with a locking screw. The wound was then copiously irrigated with normal sterile saline and meticulous hemostasis was performed throughout this procedure. We then proceeded on to the L3-L4 level again bilateral laminectomy complete facetectomy and foraminotomies were performed for decompression and deformity correction. We axis Kaminstein angle bilaterally osteotome was placed into this area under lateral fluoroscopic guidance again and complete discectomy was performed as described previously. Texture of I factor allograft and autograft again was placed anterior within the disc space and impacted into position a globus cage was then selected and impacted into position or lateral fluoroscopic guidance was then expanded restoring height and lordosis in this area the cages in stable drawing hand was removed and the cage was tested and was in good position. We then irrigated the wound again for meticulous hemostasis and back filled the cage with DBM. The ventricular attention to the L2-L3 region again bilateral laminectomy complete facetectomy and foraminotomies was performed using high- speed bur care center under rongeur and curet. Once this was accomplished we identify Kaminstein angle bilaterally neural elements were carefully mobilized. We then performed intradiscal osteotomy 3 column osteotomy in this disc space to allow for decompression as well as deformity correction due to the severe collapse. Osteotome under lateral fluoroscopic guidance advanced anteriorly into the anterior two thirds the vertebral body. We then removed this bone. Informed complete discectomy as mentioned below. Once this was accomplished with an shaved and sized for a globus Sabal cage. Once this was accomplished the anterior disc space was packed with I factor allograft and autograft. We then placed a cage in position expanded it once was expanded is locked in position. This allowed for good orthodoxy of height and lordosis. Imaging was taken which showed good placement of cages AP and lateral as well as good reduction and height restored rotation as well as decompression. We will pursue further instrumentation and renetta placement rods were selected and bent acc ordingly and first secured into the iliac screws bilaterally with a setscrew we then sequentially reduced these rods into the remaining screws L2 once the screws were placed their final tightened into position once in position with then selected 2 cross-links and these were placed and final tightened. The wound was then copiously irrigated first with 3 L of Ancef irrigation followed by 3 L of gentamicin irrigation followed by 3 L of normal sterile saline. Surgicel was then placed over the dura. Posterior lateral areas were then packed with magnets's allograft autograft and bone for posterior lateral fusion. Once this was accomplished surgery was placed over this. A deep drain was then placed and sewn into position. 2 g of vancomycin powder replaced with the wound. We then checked final fluoroscopic images confirming good placement of hardware and reduction of lordosis and height orthodoxy as well as coronal balance. We then proceeded with layered closure first and the fascia which was closed with #1 PDS in a [id number] fashion. We then placed a superficial drain over the fascia and closed the deep subcu adipose tissue with 0 PDS. The mid range adipose tissues closed with 0 Vicryl the superficial subcu tissue closed with 2-0 Vicryl and the skin closed with skin kylie. The wound edges approximated very well. All drains were sewn in position. We then clean the wound and dressed it sterilely with an operative foam dressing drain sponges and Tegaderms. The patient was transferred back to their hospital bed atraumatically. Drain continued to hold suction and were in good position. Patient was then awakened and extubated by the department of anesthesia having tolerated the procedure very well with no complications. They were transferred to the postoperative care unit in stable condition.
== END 2022-06-19 11:51 | disposition home health service (06) | DRG 454 ==
LOC: 2ORMAIN 05:40 → 4SSUR 17:10
PROVIDERS: ADMIT Orthopaedic Surgery; ATTEND Orthopaedic Surgery
PROC: 0SG10AJ Fusion of 2 or more Lumbar Vertebral Joints with Interbody Fusion Device, Posterior Approach, Anterior Column, Open Approach (ICD-10-PCS; principal; 2022-06-13 07:30)
PROC: 4A11X4G Monitoring of Peripheral Nervous Electrical Activity, Intraoperative, External Approach (ICD-10-PCS; principal; 2022-06-13 07:30)
PROC: 01NB0ZZ Release Lumbar Nerve, Open Approach (ICD-10-PCS; principal; 2022-06-13 07:30)
PROC: 0SG1071 Fusion of 2 or more Lumbar Vertebral Joints with Autologous Tissue Substitute, Posterior Approach, Posterior Column, Open Approach (ICD-10-PCS; principal; 2022-06-13 07:30)
PROC: 0ST40ZZ Resection of Lumbosacral Disc, Open Approach (ICD-10-PCS; principal; 2022-06-13 07:30)
PROC: 0SG3071 Fusion of Lumbosacral Joint with Autologous Tissue Substitute, Posterior Approach, Posterior Column, Open Approach (ICD-10-PCS; principal; 2022-06-13 07:30)
PROC: 0ST20ZZ Resection of Lumbar Vertebral Disc, Open Approach (ICD-10-PCS; principal; 2022-06-13 07:30)
PROC: 00U207Z Supplement Dura Mater with Autologous Tissue Substitute, Open Approach (ICD-10-PCS; principal; 2022-06-13 07:30)
PROC: 0QB00ZZ Excision of Lumbar Vertebra, Open Approach (ICD-10-PCS; principal; 2022-06-13 07:30)
PROC: 0SG30AJ Fusion of Lumbosacral Joint with Interbody Fusion Device, Posterior Approach, Anterior Column, Open Approach (ICD-10-PCS; principal; 2022-06-13 07:30)
PROC: 00QT0ZZ Repair Spinal Meninges, Open Approach (ICD-10-PCS; principal; 2022-06-13 07:30)
DX: M47.27 Other spondylosis with radiculopathy, lumbosacral region (principal); D62 Acute posthemorrhagic anemia; G96.11 Dural tear; M47.26 Other spondylosis with radiculopathy, lumbar region; J44.9 Chronic obstructive pulmonary disease, unspecified; M48.062 Spinal stenosis, lumbar region with neurogenic claudication; M48.07 Spinal stenosis, lumbosacral region; M43.16 Spondylolisthesis, lumbar region; M25.78 Osteophyte, vertebrae; E04.2 Nontoxic multinodular goiter; D72.829 Elevated white blood cell count, unspecified; T38.0X5A Adverse effect of glucocorticoids and synthetic analogues, initial encounter; K59.00 Constipation, unspecified; G47.9 Sleep disorder, unspecified; E66.9 Obesity, unspecified; Z68.35 Body mass index [BMI] 35.0-35.9, adult; F17.210 Nicotine dependence, cigarettes, uncomplicated; Z71.6 Tobacco abuse counseling; Z98.1 Arthrodesis status; Z56.0 Unemployment, unspecified; Z88.4 Allergy status to anesthetic agent
CPT/HCPCS: 72100; 72131; 80048; 85025; 85027; 86850; 86900; 86901; 94760

== ENCOUNTER 2022-06-27 03:10 | Observation (INO) | payer OTHER ==
[2022-06-27] MEDS ORDERED: SODIUM CHLORIDE 0.9% 1,000 ML IV ONE (04:42)
[2022-06-27] MEDS ORDERED: HYDROmorphone 1 MG/ML 1 ML SYRINGE IVP STA ×2 (04:42→06:29)
[2022-06-27] MEDS ORDERED: ACETAMINOPHEN TAB 325 MG TAB PO PRN (04:43)
[2022-06-27] MEDS ORDERED: ACETAMINOPHEN TAB 500 MG TAB PO STA (04:43)
[2022-06-27] MEDS ORDERED: diphenhydrAMINE 50 MG/ML 1 ML VIAL IVP STA (04:43)
--- NOTE | 2022-06-27 04:45 | ED ---
Recheck HPI - General Chief Complaint: Back Pain/Injury Stated Complaint: back pain Time Seen by Provider: 06/27/22 04:23 Source: patient, RN notes reviewed, old records reviewed Mode of arrival: wheelchair - History of Present Illness Initial Comments: This is a 52-year-old female to the emergency department for evaluation. Patient presented with severe back pain, some tingling in both legs. Warmth and cold was in both legs. Severe back pain. Occasional nausea no vomiting. Patient states her pain is uncontrollable at home MD Complaint: wound re-check, other (severe pain) -: days(s) Returns Today for: persistent/worsening pain related to initial visit Symptoms Since Prior Visit: worsening pain Context: other (0) Associated Symptoms: none Treatments Prior to Arrival: Given Pain Meds on - Related Data Previous Rx's Medication Instructions Recorded Cyclobenzaprine [Flexeril] 5 mg PO TID #20 tablet 06/16/22 Gabapentin 300 mg PO TID #27 cap 06/16/22 Sennosides/Docusate Sodium [Senna 1 each PO BID #20 tab 06/16/22 Plus 8.6-50 mg Tablet] cefaDROXiL [Duricef] 500 mg PO Q12HR 5 Days #10 cap 06/16/22 oxyCODONE HCL/ACETAMINOPHEN 1 tab PO Q6HR PRN 1 Days #6 tab 06/19/22 [Percocet 10-325 mg] oxyCODONE HCL/ACETAMINOPHEN 1 tab PO Q6HR PRN 7 Days #28 tab 06/19/22 [Percocet 10-325 mg] Allergies Allergy/AdvReac Type Severity Reaction Status Date / Time succinylcholine Allergy Anaphylaxis Verified 06/27/22 03:16 Review of Systems ROS Statement: Those systems with pertinent positive or pertinent negative responses have been documented in the HPI. ROS Other: All systems not noted in ROS Statement are negative. Past Medical History Additional Past Medical History / Comment(s): herniated discs. thyroid nodules History of Any Multi-Drug Resistant Organisms: None Reported Past Surgical History: Cholecystectomy, Tonsillectomy, Tubal Ligation Additional Past Surgical History / Comment(s): right hand nerve repair, L2 to pelvis decompression and fusion (06/13/22) Past Anesthesia/Blood Transfusion Reactions: Previous Problems w/ Anesthesia Additional Past Anesthesia/Blood Transfusion Reaction / Comment(s): when pt was a child and had her tonsils removed-"heart stopped" Past Psychological History: No Psychological Hx Reported Smoking Status: Current some day smoker Past Alcohol Use History: None Reported Past Drug Use History: Marijuana - Past Family History Mother Family Medical History: Cancer Father Family Medical History: Cancer General Exam General appearance: alert, in no apparent distress Head exam: Present: atraumatic, normocephalic, normal inspection Eye exam: Present: normal appearance, PERRL, EOMI. Absent: scleral icterus, conjunctival injection, periorbital swelling ENT exam: Present: normal exam, mucous membranes moist Neck exam: Present: normal inspection. Absent: tenderness, meningismus, lymphadenopathy Respiratory exam: Present: normal lung sounds bilaterally. Absent: respiratory distress, wheezes, rales, rhonchi, stridor Cardiovascular Exam: Present: regular rate, normal rhythm, normal heart sounds. Absent: systolic murmur, diastolic murmur, rubs, gallop, clicks GI/Abdominal exam: Present: soft, normal bowel sounds. Absent: distended, tenderness, guarding, rebound, rigid Extremities exam: Present: normal inspection, full ROM, normal capillary refill. Absent: tenderness, pedal edema, joint swelling, calf tenderness Back exam: Present: normal inspection Neurological exam: Present: alert, oriented X3, CN II-XII intact Psychiatric exam: Present: normal affect, normal mood Skin exam: Present: warm, dry, intact, normal color. Absent: rash Course Vital Signs 06/27/22 03:13 Temperature 98.2 F Pulse Rate 94 Respiratory 18 Rate Blood Pressure 114/59 O2 Sat by Pulse 100 Oximetry - Reevaluation(s) Reevaluation #1: 06/27/22 04:44 medical record is reviewed Reevaluation #2: 06/27/22 04:44 patient symptoms are improved Reevaluation #3: 06/27/22 04:44 patient informed of results and questions answered Medical Decision Making - Medical Decision Making 52 female postop back pain. Back surgery. Patient be admitted for pain control Disposition Clinical Impression: Postoperative pain Disposition: ADMITTED IP TO THIS [facility] Condition: Fair Is patient prescribed a controlled substance at d/c from ED?: No Referrals: Bhavesh Langley MD [Primary Care Provider] - 1-2 days Time of Disposition: 04:45
[2022-06-27] MEDS: HYDROmorphone 1 MG/ML 1 ML SYRINGE IVP PRN ×4 (10:32→20:42)
[2022-06-27 13:39] LABS: Basophils # (A) 0.1 k/uL (0-0.2); Basophils % (A) 1 %; Eosinophils # (A) 0.3 k/uL (0-0.7); Eosinophils % (A) 4 %; HCT 28.2 % (34.0-46.0); HGB 8.8 gm/dL (11.4-16.0); Hypochromasia Marked; Lymphocytes # (A) 1.7 k/uL (1.0-4.8); Lymphocytes % (A) 20 %; MCH 31.1 pg (25.0-35.0); MCV 100.3 fL (80.0-100.0); Mean Platelet Volume 7.3; Monocytes # (A) 0.4 k/uL (0-1.0); Monocytes % (A) 5 %; Neutrophils # (A) 6.3 k/uL (1.3-7.7); Neutrophils % (A) 71 %; RBC 2.81 m/uL (3.80-5.40); RDW 12.7 % (11.5-15.5); WBC 8.9 k/uL (3.8-10.6)
[2022-06-27 13:41] LABS: Platelet Count 657 k/uL (150-450)
[2022-06-27 13:58] LABS: ALT 21 U/L (4-34); AST 24 U/L (14-36); African American GFR (CKD) >90 (>60 ml/min/1.73 sqM); Albumin 3.5 g/dL (3.5-5.0); Albumin/Globulin Ratio 1.7; Alkaline Phosphatase 88 U/L (38-126); Anion Gap 6 mmol/L; Blood Urea Nitrogen 12 mg/dL (7-17); Calcium 9.1 mg/dL (8.4-10.2); Carbon Dioxide 26 mmol/L (22-30); Chloride 106 mmol/L (98-107); Globulin 2.1 g/dL; Glucose 83 mg/dL (74-99); Non-African American GFR(CKD) >90 (>60 ml/min/1.73 sqM); Potassium 4.6 mmol/L (3.5-5.1); Sodium 138 mmol/L (137-145); Total Bilirubin 0.4 mg/dL (0.2-1.3); Total Protein 5.6 g/dL (6.3-8.2)
[2022-06-27] MEDS ORDERED: oxyCODONE-APAP 10-325MG 1 EACH TAB PO PRN (14:50)
--- NOTE | 2022-06-27 15:13 | P.CNOR ---
History of Present Illness - [facility] Consult date: 06/27/22 Requesting physician: Mike Wilson Consult reason: other (known) History of present illness: Patient is a 52-year-old female with a previous history of recent L2 to pelvis decompression and fusion who presented to emergency department today for uncontrolled pain. Patient was seen at bedside this morning and complains of uncontrolled pain in her bilateral lower extremities at this time. Patient did have a L2 to pelvis decompression fusion performed on 06/13/2022. Patient was discharged home with health services on 06/19/2022. Patient says physical therapy had been coming to her house a few times a week and she had been working okay with therapy. Patient says however, when she has been getting up she feels that her left lower extremity has been unsteady to the point where it feels like it almost gives out underneath her. Patient denies any falls/trauma since surg navneet. Patient just feels that her pain is uncontrollable at this time, therefore she had to come into the emergency department for pain control. Patient seen at bedside this afternoon and states that she has burning/electrical/shock type pain down bilateral lower extremities as she points to her quads. Patient says the pain is alleviated during rest. Patient mentions there is some pain where her incision is on her spine, but she says she is able to handle this. Patient denies chest pain, fever, shortness breath, nausea, vomiting, change in vision, loss of bowel/bladder control. Past Medical History Additional Past Medical History / Comment(s): herniated discs. thyroid nodules History of Any Multi-Drug Resistant Organisms: None Reported Past Surgical History: Cholecystectomy, Tonsillectomy, Tubal Ligation Additional Past Surgical History / Comment(s): right hand nerve repair, L2 to pelvis decompression and fusion (06/13/22) Past Anesthesia/Blood Transfusion Reactions: Previous Problems w/ Anesthesia Additional Past Anesthesia/Blood Transfusion Reaction / Comm: when pt was a child and had her tonsils removed-"heart stopped" Past Psychological History: No Psychological Hx Reported Smoking Status: Current some day smoker Past Alcohol Use History: None Reported Additional Past Alcohol Use History / Comment(s): pt cutting back her smoking and trying to quit Past Drug Use History: Marijuana Additional Drug Use History / Comment(s): "edibles" occasionally for pain - Past Family History Mother Family Medical History: Cancer Father Family Medical History: Cancer Medications and Allergies Home Medications Medication Instructions Recorded Confirmed Type Cyclobenzaprine [Flexeril] 5 mg PO TID #20 tablet 06/16/22 06/27/22 Rx Gabapentin 300 mg PO TID #27 cap 06/16/22 06/27/22 Rx Acetaminophen Tab [Tylenol Tab] 1,000 mg PO Q6HR PRN 06/27/22 06/27/22 History Cetirizine HCl [Zyrtec] 10 mg PO DAILY 06/27/22 06/27/22 History Omeprazole [PriLOSEC] 20 mg PO DAILY 06/27/22 06/27/22 History Sennosides/Docusate Sodium [Senna 1 tab PO BID PRN 06/27/22 06/27/22 History Plus 8.6-50 mg Tablet] Allergies Allergy/AdvReac Type Severity Reaction Status Date / Time succinylcholine Allergy Anaphylaxis Verified 06/27/22 07:56 Physical Examination Inspection: Negative for any open fractures, significant ecchymosis/erythema/ulcers. Incision present on lumbar spine with kylie intact and well aligned. Incision appears to be healing well at this time. Sensation: Sensation is equal, symmetric, bilateral intact throughout the upper and lower extremities on exam Palpation: Minimal tenderness to palpation along the incision in spine. Nontender to palpation throughout rest exam Range of motion: Patient has full range of motion bilateral upper extremities on exam. Patient does have limited range of motion in left hip flexion/extension due to pain. Patient does have full range of motion right lower extremity and exam. Patient does have full range of motion in left knee flexion extension in left ankle dorsi/plantar flexion. Motor: 5/5 in all major motor strength in bilateral upper extremities and right lower extremity. 4-/5 in resisted left hip flexion/extension. 5/5 in resisted left knee flexion/extension and the ankle dorsi/plantar flexion. Neurovascular status: Radial pulse intact, 2+ bilaterally. Capillary refill under 3 seconds in digits of upper extremities Special tests: Negative Nellie's bilaterally. Negative clonus bilaterally. Negative Homans bilaterally. Results - Labs Result Diagrams: 06/27/22 12:44 06/27/22 12:44 Assessment and Plan Assessment: 1. Bilateral lower extremity pain 2. History of recent L2post decompression fusion Plan: 1. Bilateral lower extremity pain - patient sterile bedside this afternoon. Patient did have surgery on 06/13/2022 [id number] decompression and fusion. Patient was discharged home on 07/16/2022 in stable condition with [facility] ervic. At this time we do not recommend any emergent/urgent orthopedic surgical intervention. Patient denies any falls or trauma since surgery. We will treat patient conservatively with pain medications. We'll continue to follow patient during her stay in hospital. 2. Appreciate medical management 3. Pain management - Percocet; Flexeril; gabapentin; IV pain meds only if necessary 4. DVT prophylaxis - mechanical 5. GI ppx 6. PT/OT - WBAT w/walker and brace 7. Encourage incentive spirometer use 8. Appreciate consult Time with Patient: Less than 30
[2022-06-27] MEDS: oxyCODONE-APAP 7.5-325MG 1 EACH TAB PO PRN ×2 (15:28→22:49)
[2022-06-27] MEDS: GABAPENTIN 300 MG CAP PO SCH ×2 (15:28→20:41)
[2022-06-27] MEDS: CYCLOBENZAPRINE 5 MG TAB PO SCH ×2 (16:59→20:42)
[2022-06-27] MEDS ORDERED: SENNOSIDES-DOCUSATE SODIUM 1 EACH TAB PO PRN (17:12)
--- NOTE | 2022-06-27 17:15 | P.HPIM ---
History of Present Illness H&P Date: 06/27/22 The patient is a 52-year-old female with a PMH of chronic lower back pain who was admitted for an elective L2-pelvis decompression and fusion on 06/13 and discharged on 06/19. She was discharged with home health. Patient reports that she progressed well initially started experiencing worsening pain after she ran out of her prescription [place]. She does report taking 2 tablets rather than prescribed 1 tablet 3 times a day due to increased pain. She reports pain in her left hip radiating down her left lower extremity. Pain is sharp and stabbing in nature. Pain is aggravated with movement. She denies any bladder or bowel incontinence. She denies any saddle anesthesia. She denies any heada mari[place], lower extremity edema, nausea or vomiting, fever or chills, cough, chest pain, shortness of breath, or palpitations. No changes in appetite or weight. She denies any dizziness, numbness/weakness/tingling of the extremities. In the ED, her vital signs are stable. CBC showed hemoglobin of 8.8 with MCV of 100.3 and platelet count of 657. CMP was unremarkable. No imaging studies were done. Patient is admitted for intractable pain with orthopedic surgery on consult. Review of systems was obtained and is negative except above. General: non toxic, no distress, appears at stated age Derm: warm, dry Head: atraumatic, normocephalic, symmetric Eyes: EOMI, no lid lag, anicteric sclera Mouth: no lip lesion, mucus membranes moist Cardiovascular: S1S2 reg, no murmur Lungs: CTA bilateral, no rhonchi, no rales , no accessory muscle use Abdominal: soft, nontender to palpation, no guarding, no appreciable organomegaly Ext: no gross muscle atrophy, no edema, no contractures Neuro: no focal neuro deficits Psych: Alert, oriented, appropriate affect #Left hip pain with radiculopathy #Macrocytic anemia with thrombocytosis #Chronic lower back pain status post L2-pelvis decompression and fusion Patient started on Dilaudid 1 mg IV every 4 hours as needed for pain. Patient restarted on Percocet. She is advised call pain clinic tomorrow for refill on her [place]. Orthopedic surgery and pain medicine consulted. PT and OT will be consulted to work with this patient. Her hemoglobin has improved since her last discharge. Thrombocytosis likely reactive. Obtain B12 and folic acid. Fall precautions. DVT prophylaxis: Heparin Discussed with: Patient Anticipated discharge: 1-[address]: Home A total of 30 minutes was spent on the care of this complex patient more than 50% of the time was spent in counseling and care coordination. Patient would like to be FULL CODE. Past Medical History Additional Past Medical History / Comment(s): herniated discs. thyroid nodules History of Any Multi-Drug Resistant Organisms: None Reported Past Surgical History: Cholecystectomy, Tonsillectomy, Tubal Ligation Additional Past Surgical History / Comment(s): right hand nerve repair, L2 to pelvis decompression and fusion (06/13/22) Past Anesthesia/Blood Transfusion Reactions: Previous Problems w/ Anesthesia Additional Past Anesthesia/Blood Transfusion Reaction / Comment(s): when pt was a child and had her tonsils removed-"heart stopped" Past Psychological History: No Psychological Hx Reported Smoking Status: Current some day smoker Past Alcohol Use History: None Reported Past Drug Use History: Marijuana - Past Family History Mother Family Medical History: Cancer Father Family Medical History: Cancer Medications and Allergies Home Medications Medication Instructions Recorded Confirmed Type Cyclobenzaprine [Flexeril] 5 mg PO TID #20 tablet 06/16/22 06/27/22 Rx Gabapentin 300 mg PO TID #27 cap 06/16/22 06/27/22 Rx Acetaminophen Tab [Tylenol Tab] 1,000 mg PO Q6HR PRN 06/27/22 06/27/22 History Cetirizine HCl [Zyrtec] 10 mg PO DAILY 06/27/22 06/27/22 History Omeprazole [PriLOSEC] 20 mg PO DAILY 06/27/22 06/27/22 History Sennosides/Docusate Sodium [Senna 1 tab PO BID PRN 06/27/22 06/27/22 History Plus 8.6-50 mg Tablet] Allergies Allergy/AdvReac Type Severity Reaction Status Date / Time succinylcholine Allergy Anaphylaxis Verified 06/27/22 07:56 Physical Exam Vitals: Vital Signs Temp Pulse Resp BP Pulse Ox 06/27/22 10:25 98.1 F 70 16 118/55 100 06/27/22 09:04 97.8 F 74 16 119/69 100 06/27/22 08:07 70 16 100 06/27/22 07:48 16 118/64 06/27/22 03:13 98.2 F 94 18 114/59 100 Intake and Output 06/26/22 06/27/22 06/27/22 22:59 06:59 14:59 Other: Weight 104.326 kg Results CBC & Chem 7: 06/27/22 12:44 06/27/22 12:44
[2022-06-27] MEDS: HEPARIN SODIUM,PORCINE/PF 5,000 UNIT/0.5 ML SYRINGE SQ SCH (20:42)
[2022-06-28] MEDS: HYDROmorphone 1 MG/ML 1 ML SYRINGE IVP PRN ×4 (00:09→12:05)
[2022-06-28] MEDS: oxyCODONE-APAP 7.5-325MG 1 EACH TAB PO PRN ×2 (04:34→10:53)
[2022-06-28 06:09] VITALS: PULSE 87
[2022-06-28] MEDS: HEPARIN SODIUM,PORCINE/PF 5,000 UNIT/0.5 ML SYRINGE SQ SCH (07:59)
[2022-06-28 08:20] VITALS: BP 102/64; RESP 15; TEMP 98.3
[2022-06-28] MEDS: CYCLOBENZAPRINE 5 MG TAB PO SCH (08:34)
[2022-06-28] MEDS ORDERED: LORATADINE 10 MG TAB PO SCH (09:00)
[2022-06-28] MEDS ORDERED: PANTOPRAZOLE 40 MG TABLET PO SCH (09:00)
[2022-06-28] MEDS ORDERED: SENNOSIDES 8.6 MG TAB PO SCH (09:00)
[2022-06-28] MEDS: GABAPENTIN 300 MG CAP PO SCH (10:01)
--- NOTE | 2022-06-28 10:44 | P.PN ---
Subjective Progress Note Date: 06/28/22 Principal diagnosis: Uncontrolled lower extremity pain 2 weeks status post L2 to pelvis decompression fusion Patient was seen at bedside this morning sitting up in chair. Patient says her this morning she was able to walk down the hallway using walker. Patient says she feels that her legs are still weak at this time. However, patient says since she has been back in the hospital she feels that her pain is under better control. Patient denies chest pain, fever, chest breath, nausea, lying, change in vision, loss of bowel/bladder control. Objective - Vital Signs Vital signs: Vital Signs Temp 98.3 F 06/28/22 07:00 Pulse 87 06/28/22 07:00 Resp 15 06/28/22 07:00 BP 102/64 06/28/22 07:00 Pulse Ox 99 06/28/22 07:00 FiO2 Intake & Output 06/27/22 06/28/22 06/28/22 18:59 06:59 18:59 Intake Total 720 Balance 720 Weight 104.326 kg Intake: Oral 720 Other: # Voids 1 1 1 - Exam Inspection: Negative for any open fractures, significant ecchymosis/erythema/ulcers. Incision present on lumbar spine with kylie intact and well aligned. Incision appears to be healing well at this time. kylie removed from incision at bedside. Sensation: Sensation is equal, symmetric, bilateral intact throughout the upper and lower extremities on exam Palpation: Minimal tenderness to palpation along the incision in spine. Nontender to palpation throughout rest exam Range of motion: Patient has full range of motion bilateral upper extremities on exam. Patient does have limited range of motion in left hip flexion/extension due to pain. Patient does have full range of motion right lower extremity and exam. Patient does have full range of motion in left knee flexion extension in left ankle dorsi/plantar flexion. Motor: 5/5 in all major motor strength in bilateral upper extremities and right lower extremity. 4-/5 in resisted left hip flexion/extension. 5/5 in resisted left knee flexion/extension and the ankle dorsi/plantar flexion. Neurovascular status: Radial pulse intact, 2+ bilaterally. Capillary refill under 3 seconds in digits of upper extremities Special tests: Negative Nellie's bilaterally. Negative clonus bilaterally. Negative Homans bilaterally. - Labs CBC & Chem 7: 06/27/22 12:44 06/27/22 12:44 Labs: Abnormal Lab Results - Last 24 Hours (Table) 06/27/22 06/27/22 Range/Units 12:44 12:44 RBC 2.81 L (3.80-5.40) m/uL Hgb 8.8 L (11.4-16.0) gm/dL Hct 28.2 L (34.0-46.0) % MCV 100.3 H (80.0-100.0) fL Plt Count 657 H D (150-450) k/uL Total Protein 5.6 L (6.3-8.2) g/dL Assessment and Plan Assessment: 1. Bilateral lower extremity pain 2. History of recent [id number] decompression fusion Plan: 1. Bilateral lower extremity pain - patient sterile bedside this afternoon. Patient did have surgery on 06/13/2022 [id number] decompression and fusion. Patient was discharged home on 07/16/2022 in stable condition with home health services. At this time we do not recommend any emergent/urgent orthopedic surgical intervention. Patient denies any falls or trauma since surgery. We will treat patient conservatively with pain medications. Carter removed at bedside this morning. Patient is stable for discharge home from orthopedic standpoint. Follow up with Dr. Clark in office. 2. Appreciate medical management 3. Pain management - Percocet; Flexeril; gabapentin; IV pain meds only if necessary 4. DVT prophylaxis - heparin 5. GI ppx - protonix; senna 6. PT/OT - WBAT w/walker and brace 7. Encourage incentive spirometer use 8. Appreciate consult Time with Patient: Less than 30
--- NOTE | 2022-06-28 11:36 | P.PAINPG ---
Objective - Vital Signs Vital signs: Vital Signs Temp 98.3 F 06/28/22 07:00 Pulse 87 06/28/22 07:00 Resp 15 06/28/22 07:00 BP 102/64 06/28/22 07:00 Pulse Ox 99 06/28/22 07:00 FiO2 Intake & Output 06/27/22 06/28/22 06/28/22 18:59 06:59 18:59 Intake Total 720 Balance 720 Weight 104.326 kg Intake: Oral 720 Other: # Voids 1 1 1 - Labs CBC & Chem 7: 06/27/22 12:44 06/27/22 12:44 Labs: Abnormal Lab Results - Last 24 Hours (Table) 06/27/22 06/27/22 Range/Units 12:44 12:44 RBC 2.81 L (3.80-5.40) m/uL Hgb 8.8 L (11.4-16.0) gm/dL Hct 28.2 L (34.0-46.0) % MCV 100.3 H (80.0-100.0) fL Plt Count 657 H D (150-450) k/uL Total Protein 5.6 L (6.3-8.2) g/dL PQRS Measure Charge Sheet Comment: HISTORY OF PRESENT ILLNESS: 52 yr old inpatient female w at side as a referral from Dr Jonas presents today w severe and chronic LBP secondary to DDD, spondylosis and facet arthropathy without myelopathy for evaluation. Pt had a L2 compression fracture and underwent a L2-L5 fusion / decompression approximately 2 weeks ago and had a few days of PT when her pain level did not reduce from 10/10 in intensity. She admits her pain is mostly radiating to her thighs. She states she has accomp anying BLE weakness when bearing weight, and limited ROM as she can not flex at her hip. She could no longer continue to participate in PT, and missed her appt w her paintings conservator on 06/23/22 due to intractable pain. She is currently on Dilaudid 1mg IVP Q4H prn pain and Percocet 7.5/325mg Q6H prn pain although MAPS shows she normally takes Percocet 10/325 on an outpatient basis. In an effort to wean patient off of Dilaudid and transition her for outpatient care, will maintain her Percocet at 10/325mg dosage. PMH: GERD PSH: L2-L5 Fusion/ Decompression (May 2022), Cholecystectomy, Tonsillectomy, Tubal Ligation, R Hand Nerve Repair SH: +Tobacco use, +Cannabis Use, No ETOH abuse. and lives w spouse. FH: Mo- CA. Fa- CA. All: See list Meds: See list REVIEW OF ORGAN SYSTEMS: CONSTITUTIONAL: No fevers or chills. No recent weight loss. NEUROLOGICAL: + numbness and tingling along the distal extremities. No seizure disorders or headaches. MUSCULOSKELETAL: + pain PSYCHIATRIC: Denies current depression or suicidal thoughts. Physical Examinations : Constitutional : Cooperative , not in acute distress . Neurologic : Cranial nerve II to XII intact. No focal neurological deficits. Psychiatric : alert & oriented x 3. Matching mood & appropriate affect. Judgment & insight intact. Musculoskeletal : Cervical Spine Motor strength in the deltoid and biceps: Normal right side. Normal Left side Motor strength biceps and the wrist extensors: Normal right side . Normal left side Motor strength in the triceps muscle: Normal right side. Normal left side Deep tendon reflexes: Normal at the biceps. Normal at Brachioradialis. Normal at triceps Vertebral body tenderness to deep palpation over Cervical facet loading test: positive bilaterally Spurling test: positive bilaterally Neck distraction test: positive bilaterally Nellie sign: positive bilaterally Lumbar spine +6" vertical incisional scar overlying L1-L5 w surrounding erythema and TTP Motor strength lower extremities ,thigh and legs 5/5 Right side , 5/5 Left side Deep tendon reflexes : Normal Knee Jerk. Normal Ankle Jerk Vertebral body tenderness over Lumbar facet Loading Test: positive Right / positive Left Range of motion of the lumbar spine Flexion 30 degrees, extension 10 degrees Straight Leg Raise test: Left/ Right positive at degree Suraj test: positive right / positive left. Severe tenderness over the Sacroiliac joint on the Right / Left sides Gaenslen test: positive bilaterally Seated flexion test: positive bilaterally. Sacral spine : Severe tenderness over the Sacroiliac joint: right side / left side Range of motion: Flexion of the lumbar spine <60 degrees Range of motion: Extension of the lumbar spine <20 degrees Gaenslen's Test positive Abhinav's Test positive Suraj test: positive right side / left side Thigh Thrust Test Sacral Thrust Test Assessment/ Plan : Intractable LBP, Lumbar post fusion/ decompression Recommendation to replace Percocet 7.5/325mg w her standard Percocet 10/325mg. Advised pt that she will be weaned down from Dilaudid IVP over the next 24-48 hrs to prepare her for discharge. Also advised pt to take pain medication upon starting PT so that she may get as much gains as possible while managing pain in the interim. All questions answered. I have spent greater than 30 minutes on patient care today. Dr Villegas was available by phone for the evaluation of this patient. The time was used to review the medical records including relevant urine studies and Prescription history (MAPs), review of the available imaging, evaluation and examination of the patient, coordination of care with the medical staff and if applicable referring physicians, as well as creation of the medical record PQRS Narrative: Do You Want the Pneumonia No Vaccine AT THIS TIME? Blood Pressure [Right Arm] 102/64 Blood Pressure [Left Arm] 109/67 Blood Pressure [Right Arm 108/64 Sitting] Blood Pressure 122/81 Pain Intensity [Lower Back] 7 Pain Intensity 9 Pain Scale Used Numeric (1 - 10) Scale Used Numeric (1 - 10) Home Medications: Ambulatory Orders Cyclobenzaprine [Flexeril] 5 mg PO TID #20 tablet 06/16/22 Gabapentin 300 mg PO TID #27 cap 06/16/22 Acetaminophen Tab [Tylenol Tab] 1,000 mg PO Q6HR PRN 06/27/22 Cetirizine HCl [Zyrtec] 10 mg PO DAILY 06/27/22 Omeprazole [PriLOSEC] 20 mg PO DAILY 06/27/22 Sennosides/Docusate Sodium [Senna Plus 8.6-50 mg Tablet] 1 tab PO BID PRN 06/27/22 Controlled Substance Measures - Controlled Substance Measures Is patient prescribed a controlled substance at discharge?: No
[2022-06-28] MEDS ORDERED: oxyCODONE-APAP 10-325MG 1 EACH TAB PO PRN (11:38)
--- NOTE | 2022-06-28 16:45 | P.DS ---
Providers Date of admission: 06/27/22 04:42 Expected date of discharge: 06/28/22 Attending physician: Nilo Jonas MD Consults: 06/27/22 04:42 Consult Physician Routine Consulting Provider: Paul Clark Consult Reason/Comments: known Do you want consulting provider notified?: Yes Primary care physician: Bhavesh Langley MD Hospital Course: The patient is a 52-year-old female with a PMH of chronic lower back pain who was admitted for an elective L2-pelvis decompression and fusion on 06/13 and discharged on 06/19. She was discharged with home health. Patient reports that she progressed well initially started experiencing worsening pain after she ran out of her prescription [place]. She does report taking 2 tablets rather than prescribed 1 tablet 3 times a day due to increased pain. She reports pain in her left hip radiating down her left lower extremity. Pain is sharp and stabbing in nature. Pain is aggravated with movement. She denies any bladder or bowel incontinence. She denies any saddle anesthesia. She denies any headache, lower extremity edema, nausea or vomiting, fever or chills, cough, chest pain, shortness of breath, or palpitations. No changes in appetite or weight. She denies any dizziness, numbness/weakness/tingling of the extremities. In the ED, her vital signs are stable. CBC showed hemoglobin of 8.8 with MCV of 100.3 and platelet count of 657. CMP was unremarkable. No imaging studies were done. Patient is admitted for intractable pain with orthopedic surgery on consult. Orthopedic surgery and pain management recommended no further intervention. I was able to contact her pain clinic [facility] and speak to the MA. The clinic was agreeable for the patient to come drop off a UDS today and that they would refill her prescription for Percocet. Patient verbalized understanding of the plan. General: non toxic, no distress, appears at stated age Derm: warm, dry Head: atraumatic, normocephalic, symmetric Eyes: EOMI, no lid lag, anicteric sclera Mouth: no lip lesion, mucus membranes moist Cardiovascular: S1S2 reg, no murmur Lungs: CTA bilateral, no rhonchi, no rales , no accessory muscle use Abdominal: soft, nontender to palpation, no guarding, no appreciable organomegaly Ext: no gross muscle atrophy, no edema, no contractures Neuro: no focal neuro deficits Psych: Alert, oriented, appropriate affect Discharge Diagnosis: #Left hip pain with radiculopathy #Macrocytic anemia with thrombocytosis #Chronic lower back pain status post L2-pelvis decompression and fusion Patient Condition at Discharge: Stable Plan - Discharge Summary Discharge Rx Participant: No New Discharge Prescriptions: New oxyCODONE-APAP 10-325MG [Percocet 10-325 mg] 1 each PO Q6HR PRN tab PRN Reason: Moderate Pain Continue Gabapentin 300 mg PO TID #27 cap Cyclobenzaprine [Flexeril] 5 mg PO TID #20 tablet Acetaminophen Tab [Tylenol] 1,000 mg PO Q6HR PRN PRN Reason: Pain Sennosides/Docusate Sodium [Senna Plus 8.6-50 mg Tablet] 1 tab PO BID PRN PRN Reason: Constipation Omeprazole [PriLOSEC] 20 mg PO DAILY Cetirizine HCl [Zyrtec] 10 mg PO DAILY Discharge Medication List Cyclobenzaprine [Flexeril] 5 mg PO TID #20 tablet 06/16/22 [Rx] Gabapentin 300 mg PO TID #27 cap 06/16/22 [Rx] Acetaminophen Tab [Tylenol] 1,000 mg PO Q6HR PRN 06/27/22 [History] Cetirizine HCl [Zyrtec] 10 mg PO DAILY 06/27/22 [History] Omeprazole [PriLOSEC] 20 mg PO DAILY 06/27/22 [History] Sennosides/Docusate Sodium [Senna Plus 8.6-50 mg Tablet] 1 tab PO BID PRN 06/27/22 [History] oxyCODONE-APAP 10-325MG [Percocet 10-325 mg] 1 each PO Q6HR PRN tab 06/28/22 [Rx] Follow up Appointment(s)/Referral(s): Bhavesh Langley MD [Primary Care Provider] - 1-2 days Paul Clark DO [Doctor of Osteopathic Medicine] - 06/30/22 8:20 am Patient Instructions/Handouts: Non-pharmacological Pain Management Therapies for Adults (ED) Activity/Diet/Wound Care/Special Instructions: Go see your bridge painter helper on the day of discharge to obtain a prescription for Percocet. Discharge Disposition: HOME WITH HOME HEALTH SERVICES
== END 2022-06-28 14:15 | disposition home health service (06) ==
LOC: EC 03:10 → 6NMEDSUR 04:42
PROVIDERS: ADMIT Internal Medicine; ATTEND Internal Medicine
DX: M25.552 Pain in left hip (principal); M54.10 Radiculopathy, site unspecified; G89.18 Other acute postprocedural pain; E04.2 Nontoxic multinodular goiter; F17.200 Nicotine dependence, unspecified, uncomplicated; D75.839 Thrombocytosis, unspecified; D53.9 Nutritional anemia, unspecified; F12.90 Cannabis use, unspecified, uncomplicated; K21.9 Gastro-esophageal reflux disease without esophagitis; Z79.899 Other long term (current) drug therapy; Z90.49 Acquired absence of other specified parts of digestive tract; Z98.1 Arthrodesis status; Z80.9 Family history of malignant neoplasm, unspecified; Z98.51 Tubal ligation status; Z80.8 Family history of malignant neoplasm of other organs or systems; Z88.8 Allergy status to other drugs, medicaments and biological substances
CPT/HCPCS: 96376 ×3; 96361; 96374; 96375; 99284; 80053; 82607; 82746; 85025; G0378 ×2; J1200; J1170 ×2

== ENCOUNTER 2022-07-08 21:57 | Observation (INO) | payer OTHER ==
--- NOTE | 2022-07-09 01:04 | ED ---
Recheck HPI - General Chief Complaint: Extremity Problem,Nontraumatic Stated Complaint: Post op leg pain Time Seen by Provider: 07/09/22 00:32 Source: patient, RN notes reviewed, old records reviewed Mode of arrival: ambulatory Limitations: no limitations - History of Present Illness Initial Comments: This is a 52-year-old female presenting today for evaluation of bilateral lower [place] pain and paresthesias. This is been an issue for the patient since having her back surgery. No new traumatic injury. No neurological changes. Patient states she is getting up and walking at home. She recently told up her pain medication oh and has since run out of her pain medications at home. Patient does not appointment with follow-up for greater than a week MD Complaint: medication refill request -: hour(s) Returns Today for: persistent/worsening pain related to initial visit Context: ran out of medication Associated Symptoms: none Treatments Prior to Arrival: Given Pain Meds on - Related Data Home Medications Medication Instructions Recorded Confirmed Acetaminophen Tab [Tylenol] 1,000 mg PO Q6HR PRN 06/27/22 06/27/22 Cetirizine HCl [Zyrtec] 10 mg PO DAILY 06/27/22 06/27/22 Omeprazole [PriLOSEC] 20 mg PO DAILY 06/27/22 06/27/22 Sennosides/Docusate Sodium [Senna 1 tab PO BID PRN 06/27/22 06/27/22 Plus 8.6-50 mg Tablet] Previous Rx's Medication Instructions Recorded Cyclobenzaprine [Flexeril] 5 mg PO TID #20 tablet 06/16/22 Gabapentin 300 mg PO TID #27 cap 06/16/22 oxyCODONE-APAP 10-325MG [Percocet 1 each PO Q6HR PRN tab 06/28/22 10-325 mg] Allergies Allergy/AdvReac Type Severity Reaction Status Date / Time succinylcholine Allergy Anaphylaxis Verified 07/08/22 22:14 Review of Systems ROS Statement: Those systems with pertinent positive or pertinent negative responses have been documented in the HPI. ROS Other: All systems not noted in ROS Statement are negative. Past Medical History Additional Past Medical History / Comment(s): herniated discs. thyroid nodules History of Any Multi-Drug Resistant Organisms: None Reported Past Surgical History: Cholecystectomy, Orthopedic Surgery, Tonsillectomy, Tubal Ligation Additional Past Surgical History / Comment(s): right hand nerve repair, L2 to pelvis decompression and fusion (06/13/22) Past Anesthesia/Blood Transfusion Reactions: Previous Problems w/ Anesthesia Additional Past Anesthesia/Blood Transfusion Reaction / Comment(s): when pt was a child and had her tonsils removed-"heart stopped" Past Psychological History: No Psychological Hx Reported Smoking Status: Current some day smoker Past Alcohol Use History: None Reported Past Drug Use History: Marijuana - Past Family History Mother Family Medical History: Cancer Father Family Medical History: Cancer General Exam - General Exam Comments Initial Comments: incision CDI no focal neuro deficits patient walks w walker Limitations: no limitations General appearance: alert, in no apparent distress Head exam: Present: atraumatic, normocephalic, normal inspection Eye exam: Present: normal appearance, PERRL, EOMI. Absent: scleral icterus, conjunctival injection, periorbital swelling ENT exam: Present: normal exam, mucous membranes moist Neck exam: Present: normal inspection. Absent: tenderness, meningismus, lymphadenopathy Respiratory exam: Present: normal lung sounds bilaterally. Absent: respiratory distress, wheezes, rales, rhonchi, stridor Cardiovascular Exam: Present: regular rate, normal rhythm, normal heart sounds. Absent: systolic murmur, diastolic murmur, rubs, gallop, clicks GI/Abdominal exam: Present: soft, normal bowel sounds. Absent: distended, tenderness, guarding, rebound, rigid Extremities exam: Present: normal inspection, full ROM, normal capillary refill. Absent: tenderness, pedal edema, joint swelling, calf tenderness Back exam: Present: normal inspection Neurological exam: Present: alert, oriented X3, CN II-XII intact Psychiatric exam: Present: normal affect, normal mood Skin exam: Present: warm, dry, intact, normal color. Absent: rash Course Vital Signs 07/08/22 07/09/22 22:12 00:36 Temperature 98.1 F 97.9 F Pulse Rate 103 H 84 Respiratory 20 18 Rate Blood Pressure 114/69 122/55 O2 Sat by Pulse 99 98 Oximetry - Reevaluation(s) Reevaluation #1: 07/09/22 02:04 Medical record is reviewed Reevaluation #2: 07/09/22 02:04 Patient is informed results and questions answered 07/09/22 02:04 Reevaluation #3: 07/09/22 02:04 Patient has pain control Disposition Clinical Impression: Postoperative pain, Bilateral leg paresthesia Disposition: ADMITTED IP TO THIS [facility] Condition: Good Is patient prescribed a controlled substance at d/c from ED?: No Referrals: Bhavesh Langley MD [Primary Care Provider] - 1-2 days Time of Disposition: 02:05
[2022-07-09] MEDS ORDERED: SODIUM CHLORIDE 0.9% 1,000 ML IV STA (01:58)
[2022-07-09] MEDS ORDERED: ONDANSETRON 4 MG/2 ML VIAL IVP STA (01:58)
[2022-07-09] MEDS ORDERED: ONDANSETRON 4 MG/2 ML VIAL IVP PRN (01:58)
[2022-07-09] MEDS ORDERED: HYDROmorphone 1 MG/ML 1 ML SYRINGE IVP STA (02:02)
[2022-07-09] MEDS ORDERED: diphenhydrAMINE 50 MG/ML 1 ML VIAL IVP PRN (02:02)
[2022-07-09 03:02] LABS: Appearance,Urine Cloudy (Clear); Bacteria,Urine Rare /hpf; Bilirubin,Urine Negative (Negative); Blood,Urine Trace (Negative); Color,Urine Yellow; Glucose,Urine (UA) Negative (Negative); Hyaline Casts,Urine 1 /lpf (0-2); Ketones,Urine Negative (Negative); Leukocyte Esterase,Urine Large (Negative); Mucus,Urine Rare /hpf; Nitrite,Urine Negative (Negative); Protein,Urine Negative (Negative); RBC,Urine 3 /hpf (0-5); Specific Gravity,Urine 1.022 (1.001-1.035); Squamous Epithelial Cell,Urine 16 /hpf (0-4); Urobilinogen,Urine <2.0 mg/dL (<2.0); WBC,Urine 29 /hpf (0-5)
[2022-07-09 03:25] LABS: Basophils % (A) 1 %; Eosinophils # (A) 0.4 k/uL (0-0.7); Eosinophils % (A) 6 %; HCT 32.5 % (34.0-46.0); HGB 9.8 gm/dL (11.4-16.0); Hypochromasia Marked; Lymphocytes # (A) 2.2 k/uL (1.0-4.8); Lymphocytes % (A) 32 %; MCH 28.4 pg (25.0-35.0); MCHC 30.1 g/dL (31.0-37.0); Mean Platelet Volume 7.6; Monocytes # (A) 0.4 k/uL (0-1.0); Monocytes % (A) 6 %; Neutrophils # (A) 3.8 k/uL (1.3-7.7); Neutrophils % (A) 54 %; Platelet Count 498 k/uL (150-450); Poikilocytosis Slight; RBC 3.45 m/uL (3.80-5.40); RDW 13.5 % (11.5-15.5)
[2022-07-09 03:33] LABS: ALT 15 U/L (4-34); AST 24 U/L (14-36); African American GFR (CKD) >90 (>60 ml/min/1.73 sqM); Albumin 3.9 g/dL (3.5-5.0); Alkaline Phosphatase 94 U/L (38-126); Anion Gap 7 mmol/L; Blood Urea Nitrogen 12 mg/dL (7-17); Calcium 9.4 mg/dL (8.4-10.2); Carbon Dioxide 27 mmol/L (22-30); Chloride 105 mmol/L (98-107); Glucose 92 mg/dL (74-99); Magnesium 1.8 mg/dL (1.6-2.3); Non-African American GFR(CKD) >90 (>60 ml/min/1.73 sqM); Phosphorus 4.5 mg/dL (2.5-4.5); Potassium 4.2 mmol/L (3.5-5.1); Sodium 139 mmol/L (137-145); Total Bilirubin 0.4 mg/dL (0.2-1.3); Total Protein 6.1 g/dL (6.3-8.2)
[2022-07-09 03:34] LABS: INR 0.9 (<1.2); Partial Thromboplastin Time 23.1 sec (22.0-30.0); Prothrombin Time 10.1 sec (9.0-12.0)
[2022-07-09 03:37] LABS: MCV 94.3 fL (80.0-100.0)
[2022-07-09] MEDS: HYDROmorphone 1 MG/ML 1 ML SYRINGE IVP PRN ×5 (04:10→20:22)
[2022-07-09] MEDS ORDERED: oxyCODONE-APAP 10-325MG 1 EACH TAB PO PRN ×2 (04:20→12:42)
--- NOTE | 2022-07-09 04:21 | P.HPIM ---
History of Present Illness H&P Date: 07/09/22 The patient is a 52-year-old female with a PMH of chronic lower back pain status post elective L2/pelvis decompression on 06/13 presented to the emergency room with complaints of intractable bilateral hip and lower extremity pain. The patient reports that she has had persistent pain since her surgery. Of note, the patient was recently admitted from 06/27-06/28 for intractable postoperative pain at which time she was discharged home on [place]. The patient was also set up with an appointment with [facility] for further prescriptions of Percocet. Patient reports however that the Percocets, gabapentin, and Flexeril have been unable to control her pain adequately. She reports persistent bilateral hip pain radiating down towards her knees, 10 out of 10, worsened with movement, with no alleviating features. The patient reports that the pain has not worsened since her discharge. She denied urinary or bowel incontinence. Also denied lower extremity weakness, numbness, tingling. Reports that she continues to ambulate with a walker at home. Denied fever, chills, chest pain, shortness of breath, nausea, vomiting. Review of systems: Pertinent positives and negatives as discussed in HPI, a complete review of systems was performed and all other systems are negative. Physical examination: General: non toxic, no distress, appears at stated age, obese Derm: no unusual rashes/lesions, warm Head: atraumatic, normocephalic, symmetric Eyes: EOMI, no lid lag, anicteric sclera, pupils equal round reactive to light ENT: Nose and ears atraumatic Neck: No cervical lymphadenopathy, trachea midline, supple Mouth: no lip lesion, mucus membranes moist Cardiovascular: S1S2 reg, no murmur, positive dorsalis pedis pulse bilateral, no edema Lungs: CTA bilateral, no rhonchi, no rales, no accessory muscle use Abdominal: soft, nontender to palpation, no guarding Ext: muscle strength 3 out of 5 in all 4 extremities grossly, no gross muscle atrophy, no contractures, lumbar incision well healing Neuro: CN II-XI grossly intact, no gross focal neuro deficits Psych: Alert, oriented, appropriate affect Assessment/plan Intractable hip and lower extremity pain -Orthopedic surgery and pain management consult -Continue with morphine when necessary DVT prophylaxis -Heparin subq The patient is admitted with an anticipated less than 2 midnight stay for evaluation of hip pain CODE STATUS: Full Code Discussed with: Patient Anticipated discharge date: in am Anticipated discharge place: Home Past Medical History Additional Past Medical History / Comment(s): herniated discs. thyroid nodules History of Any Multi-Drug Resistant Organisms: None Reported Past Surgical History: Cholecystectomy, Orthopedic Surgery, Tonsillectomy, Tubal Ligation Additional Past Surgical History / Comment(s): right hand nerve repair, L2 to pelvis decompression and fusion (06/13/22) Past Anesthesia/Blood Transfusion Reactions: Previous Problems w/ Anesthesia Additional Past Anesthesia/Blood Transfusion Reaction / Comment(s): when pt was a child and had her tonsils removed-"heart stopped" Past Psychological History: No Psychological Hx Reported Smoking Status: Current some day smoker Past Alcohol Use History: None Reported Past Drug Use History: Marijuana - Past Family History Mother Family Medical History: Cancer Father Family Medical History: Cancer Medications and Allergies Home Medications Medication Instructions Recorded Confirmed Type Cyclobenzaprine [Flexeril] 5 mg PO TID #20 tablet 06/16/22 06/27/22 Rx Gabapentin 300 mg PO TID #27 cap 06/16/22 06/27/22 Rx Acetaminophen Tab [Tylenol] 1,000 mg PO Q6HR PRN 06/27/22 06/27/22 History Cetirizine HCl [Zyrtec] 10 mg PO DAILY 06/27/22 06/27/22 History Omeprazole [PriLOSEC] 20 mg PO DAILY 06/27/22 06/27/22 History Sennosides/Docusate Sodium [Senna 1 tab PO BID PRN 06/27/22 06/27/22 History Plus 8.6-50 mg Tablet] oxyCODONE-APAP 10-325MG [Percocet 1 each PO Q6HR PRN tab 06/28/22 Rx 10-325 mg] Allergies Allergy/AdvReac Type Severity Reaction Status Date / Time succinylcholine Allergy Anaphylaxis Verified 07/08/22 22:14 Physical Exam Vitals: Vital Signs Temp Pulse Resp BP Pulse Ox 07/09/22 04:08 97.6 F 82 18 124/72 98 07/09/22 03:18 76 16 111/70 95 07/09/22 02:58 74 16 110/74 99 07/09/22 00:36 97.9 F 84 18 122/55 98 07/08/22 22:12 98.1 F 103 H 20 114/69 99 Intake and Output 07/08/22 07/08/22 07/09/22 14:59 22:59 06:59 Other: Weight 106.141 kg Results CBC & Chem 7: 07/09/22 03:18 07/09/22 03:18 Labs: Abnormal Lab Results - Last 24 Hours (Table) 07/09/22 07/09/22 07/09/22 Range/Units 02:35 03:18 03:18 RBC 3.45 L (3.80-5.40) m/uL Hgb 9.8 L (11.4-16.0) gm/dL Hct 32.5 L (34.0-46.0) % MCHC 30.1 L (31.0-37.0) g/dL Plt Count 498 H (150-450) k/uL Total Protein 6.1 L (6.3-8.2) g/dL Urine Appearance Cloudy H (Clear) Urine Blood Trace H (Negative) Ur Leukocyte Esterase Large H (Negative) Urine WBC 29 H (0-5) /hpf Ur Squamous Epith Cells 16 H (0-4) /hpf Urine Bacteria Rare H (None) /hpf Urine Mucus Rare H (None) /hpf
[2022-07-09] MEDS: GABAPENTIN 300 MG CAP PO SCH ×4 (04:34→20:22)
[2022-07-09] MEDS: HEPARIN SODIUM,PORCINE/PF 5,000 UNIT/0.5 ML SYRINGE SQ SCH ×2 (08:46→15:42)
--- NOTE | 2022-07-09 12:35 | P.PN ---
Progress Note - Text Progress Note Date: 07/09/22 Pt admitted for intractable pain. Will order new CT scan of low back to image and look for any interval changes since post op CT. Pt called office Sunday due to pain and was prescribed on Sunday Percocet 10/325 # 42; Gabapentin 600 mg #90 and Flexeril 10 #40. She has taking too many pain medications at home and she has a pain contract with [facility] but she apparently violated this and they will not manage her chronic pain, according to her. She continues to have low back and leg pain but no tensioning signs or emergent signs. She has attenuation and it is difficult to control her pain. Will consult pain management on her for pain control and estabilishment for chronic follow up. Will view CT when available. No emergent surgical plans at this time.
--- NOTE | 2022-07-09 13:31 | P.CNOR ---
History of Present Illness - [facility] Consult date: 07/09/22 Consult reason: low back pain History of present illness: 52 yo female presented for post operative pain after L2-P fusion. She is 3 weeks out has been back to the hospital now 3 times. She states pain in her ba ck and LLE. She has no issues with ambulation, voiding or any other issues. She gets around under he own power without issues. My previous note details her current pain issues and medications. She states shed like to go home but she has no chronic pain follow up at this time as she was discharged from [facility] due to non complience with her pain meds. She states no other issues. Review of Systems All systems: negative Constitutional: Reports as per [facility] Past Medical History Additional Past Medical History / Comment(s): herniated discs. thyroid nodules History of Any Multi-Drug Resistant Organisms: None Reported Past Surgical History: Cholecystectomy, Orthopedic Surgery, Tonsillectomy, Tubal Ligation Additional Past Surgical History / Comment(s): right hand nerve repair, L2 to pelvis decompression and fusion (06/13/22) Past Anesthesia/Blood Transfusion Reactions: Previous Problems w/ Anesthesia Additional Past Anesthesia/Blood Transfusion Reaction / Comm: when pt was a child and had her tonsils removed-"heart stopped" Past Psychological History: No Psychological Hx Reported Smoking Status: Current some day smoker Past Alcohol Use History: None Reported Past Drug Use History: Marijuana - Past Family History Mother Family Medical History: Cancer Father Family Medical History: Cancer Medications and Allergies Home Medications Medication Instructions Recorded Confirmed Type Cyclobenzaprine [Flexeril] 5 mg PO TID #20 tablet 06/16/22 07/09/22 Rx Gabapentin 300 mg PO TID #27 cap 06/16/22 07/09/22 Rx Acetaminophen Tab [Tylenol] 1,000 mg PO Q6HR PRN 06/27/22 07/09/22 History Cetirizine HCl [Zyrtec] 10 mg PO DAILY 06/27/22 07/09/22 History Omeprazole [PriLOSEC] 20 mg PO DAILY 06/27/22 07/09/22 History Sennosides/Docusate Sodium [Senna 1 tab PO BID PRN 06/27/22 07/09/22 History Plus 8.6-50 mg Tablet] oxyCODONE-APAP 10-325MG [Percocet 1 tab PO Q6H PRN 07/09/22 07/09/22 History 10-325 mg] Allergies Allergy/AdvReac Type Severity Reaction Status Date / Time succinylcholine Allergy Anaphylaxis Verified 07/09/22 10:28 Physical Examination Osteopathic Statement: *. No significant issues noted on an osteopathic structural exam other than those noted in the History and Physical/Consult. AOX3 NAD No TTP of the L spine 5/5 strength all UE muscle groups b/l 4+/5 strength all LE muscles groups b/l no focal deficits normal post op deconditioining 2/4 DP/PT pulses SILT C5-T1 and L2-S1 b/l Neg hoffmans Neg homans Neg clonus Neg babinski Incision is CDI no drainage, no EEE. healing well. CNII-XII grossly intact Results CT pending - Labs Labs: Abnormal Lab Results - Last 24 Hours (Table) 07/09/22 07/09/22 07/09/22 Range/Units 02:35 03:18 03:18 RBC 3.45 L (3.80-5.40) m/uL Hgb 9.8 L (11.4-16.0) gm/dL Hct 32.5 L (34.0-46.0) % MCHC 30.1 L (31.0-37.0) g/dL Plt Count 498 H (150-450) k/uL Total Protein 6.1 L (6.3-8.2) g/dL Urine Appearance Cloudy H (Clear) Urine Blood Trace H (Negative) Ur Leukocyte Esterase Large H (Negative) Urine WBC 29 H (0-5) /hpf Ur Squamous Epith Cells 16 H (0-4) /hpf Urine Bacteria Rare H (None) /hpf Urine Mucus Rare H (None) /hpf H & H 07/09/22 Range/Units 03:18 Hgb 9.8 L (11.4-16.0) gm/dL Hct 32.5 L (34.0-46.0) % Coagulation 07/09/22 Range/Units 03:18 INR 0.9 (<1.2) Result Diagrams: 07/09/22 03:18 07/09/22 03:18 Assessment and Plan Assessment: s/p L2-Pelvis Decompression and fusion Chronic pain and opioid use Post op pain, LLE radiculoapthy, improving Plan: -CT Lumbar spine -Consult to [facility] Wilson for chronic pain management -No surgical intervention planned
[2022-07-09] MEDS: oxyCODONE-APAP 10-325MG 1 EACH TAB PO PRN ×2 (15:51→21:46)
--- NOTE | 2022-07-09 17:57 | CT ---
EXAMINATION TYPE: CT lumbar spine wo con DATE OF EXAM: 07/09/2022 COMPARISON: 06/14/2022 HISTORY: low back pain [address] DLP: 1671.8 mGycm Automated exposure control for dose reduction was used. Images obtained from T12 to S2 vertebra with no contrast. The lumbar vertebrae have normal alignment. There is broad and screws fusing posteriorly the lumbar s pine from L2 to S1. There is disc prosthesis from L2 to S1. No compression fracture. No lumbar parasp inal mass. There is rounded subcutaneous intermediate density fluid collection measuring 4.5 cm in th e subcutaneous fat at the surgery site. This measures 14 cm in length. No soft tissue air. There is l aminectomy defect. Detail limited by the metal artifact. IMPRESSION: Postsurgical changes. Large fluid collection consistent with chronic hematoma or seroma in the subcut aneous tissues posteriorly. No air bubbles seen to suggest an abscess. Fluid appears new compared to the old exam.
[2022-07-10] MEDS: HEPARIN SODIUM,PORCINE/PF 5,000 UNIT/0.5 ML SYRINGE SQ SCH ×2 (00:16→08:04)
[2022-07-10] MEDS: HYDROmorphone 1 MG/ML 1 ML SYRINGE IVP PRN ×4 (02:26→14:14)
[2022-07-10] MEDS: oxyCODONE-APAP 10-325MG 1 EACH TAB PO PRN ×3 (03:47→12:37)
[2022-07-10 07:50] VITALS: RESP 16
[2022-07-10] MEDS: GABAPENTIN 300 MG CAP PO SCH (08:04)
--- NOTE | 2022-07-10 08:46 | P.PN ---
Subjective Progress Note Date: 07/10/22 Principal diagnosis: Low back pain Bilateral leg pain Patient seen and examined at bedside. Patient reports that her pain is not currently managed at home, but is managed currently with IV medication. Patient currently denies any back pain, her main concern is severe burning in bilateral lower extremities. Patient states she has been ambulatory within room without any difficulty. LSO brace is present at bedside. Surgical incision is approximated and healing well. Patient denies any fever/chills, nausea/vomiting, or chest pain. Objective - Vital Signs Vital signs: Vital Signs Temp 98.2 F 07/10/22 07:00 Pulse 68 07/10/22 07:00 Resp 16 07/10/22 07:00 BP 97/61 07/10/22 07:00 Pulse Ox 96 07/10/22 07:00 FiO2 Intake & Output 07/09/22 07/10/22 07/10/22 18:59 06:59 18:59 Intake Total 960 Balance 960 Intake: Oral 960 Other: # Voids 2 2 - Exam Physical Examination General: The patient is awake and alert, in no acute distress Skin: Skin is warm and dry with no obvious rashes or lesions. Hairy patches absent, no dorsal skin dimples, no cafe au lait spots. Healing lumbar incision from previous surgery. Eye: Pupils are equal, round and reactive to light, extra-ocular movements are intact; there is normal conjunctiva bilaterally. Neck: The neck is supple, there is no tenderness and ROM intact. Cardiovascular: There is a regular rate and rhythm. No murmur, rub or gallop is appreciated. Respiratory: Lungs are clear to auscultation, respirations are non-labored, breath sounds are equal. Gastrointestinal: Soft, non-distended, non-tender abdomen . Back: There is no tenderness to palpation in the midline, paralumbar, parathoracic or buttocks region. There is no obvious deformity . Musculoskeletal: ROM limited secondary to pain and stiffness from surgical procedure. Muscle strength 5/5 in all major muscle groups of bilateral upper and lower extremities. Neurological: CN 2-12 intact. There are no obvious motor or sensory deficits. Movement and coordination equal and intact. Sensory exam to light touch intact C5-T1 and intact from L2-S1. Reflexes 2/4 in bilateral upper and lower extremities. Negative Hoffmans, babinski, and clonus signs. Psychiatric: Cooperative, appropriate mood & affect, normal judgment. - Labs CBC & Chem 7: 07/09/22 03:18 07/09/22 03:18 Assessment and Plan Assessment: s/p L2-Pelvis Decompression and fusion Chronic pain and opioid use Post op pain, LLE radiculoapthy, improving Plan: -No surgical intervention at this time. -Consult for Dr. Yoder for pain management -Appreciate end user consultant and team management. -Activity: Ambulate QID, OOB all meals, up and about, limit lifting bending twisting to less than 5 lbs. Use walker or cane if needed for stability. -Daily PT/OT, increase ambulation strength and balance. -Brace when up and about, not needed in bed or chair *I reviewed and discussed this case with my attending Dr. Clark, whom has reviewed this chart and films and is in agreement with assessment and plan of care as outlined above. I have personally seen and examined the patient, performed the documentation and the assessment and plan as written. Number of minutes spent on the visit: 20m.
[2022-07-10] MEDS ORDERED: DEXAMETHASONE SOD PHOSPHATE 20 MG in DEXTROSE 5% IN WATER 50 ML IV STA ×2 (14:44)
--- NOTE | 2022-07-10 14:44 | P.PAINPG ---
Objective - Vital Signs Vital signs: Vital Signs Temp 98.2 F 07/10/22 07:00 Pulse 68 07/10/22 07:00 Resp 16 07/10/22 07:00 BP 97/61 07/10/22 07:00 Pulse Ox 96 07/10/22 07:00 FiO2 Intake & Output 07/09/22 07/10/22 07/10/22 18:59 06:59 18:59 Intake Total 960 Balance 960 Intake: Oral 960 Other: # Voids 2 2 - Labs CBC & Chem 7: 07/09/22 03:18 07/09/22 03:18 PQRS Measure Charge Sheet Comment: HISTORY OF PRESENT ILLNESS: 52 -year-old female w at side as a referral from Dr Whitman presents today w severe and chronic LBP secondary to lumbar post laminectomy syndrome. Pt underwent a L2-P decompression and fusion on 06/13/22 and is continuing to suffer 10/10 pain, constant, sharp in character without radiation of pain to the extremities. She states medications (Percocet 10/325, Flexeril) are ineffective in reducing pain. Pain is provoked w any type of movement. Pt finds relief w medications, injections in the past, PT in the past, heat, repositioning and rest. Pt is due to be discharged within 24 hrs. Discharge medications entered in chart. PMH: Lumbar Disc Herniation, Thyroid Nodule, Seasonal Allergy, GERD PSH: Cholecystectomy, L2-P Fusion/ Decompression (May 2022), Tonsillectomy, Tubal Ligation SH: Daily tobacco use, +Cannabis use, No ETOH abuse. FH: Mo- CA. Fa- CA. All: See list Meds: See lsit REVIEW OF ORGAN SYSTEMS: CONSTITUTIONAL: No fevers or chills. No recent weight loss. NEUROLOGICAL: + numbness and tingling along the distal extremities. No seizure disorders or headaches. MUSCULOSKELETAL: + pain PSYCHIATRIC: Denies current depression or suicidal thoughts. Physical Examinations : Constitutional : Cooperative , not in acute distress . Neurologic : Cranial nerve II to XII intact. No focal neurological deficits. Psychiatric : alert & oriented x 3. Matching mood & appropriate affect. Judgment & insight intact. Musculoskeletal : Cervical Spine Motor strength in the deltoid and biceps: Normal right side. Normal Left side Motor strength biceps and the wrist extensors: Normal right side . Normal left side Motor strength in the triceps muscle: Normal right side. Normal left side Deep tendon reflexes: Normal at the biceps. Normal at Brachioradialis. Normal at triceps Vertebral body tenderness to deep palpation over Cervical facet loading test: positive bilaterally Spurling test: positive bilaterally Neck distraction test: positive bilaterally Nellie sign: positive bilaterally Lumbar spine Well healed incisional scar Motor strength lower extremities ,thigh and legs 5/5 Right side , 5/5 Left side Deep tendon reflexes : Normal Knee Jerk. Normal Ankle Jerk Vertebral body tenderness over Lumbar facet Loading Test: positive Right / positive Left Range of motion of the lumbar spine Flexion 30 degrees, extension 10 degrees Straight Leg Raise test: Left/ Right positive at degree Suraj test: positive right / positive left. Severe tenderness over the Sacroiliac joint on the Right / Left sides Gaenslen test: positive bilaterally Seated flexion test: positive bilaterally. Sacral spine : Severe tenderness over the Sacroiliac joint: right side / left side Range of motion: Flexion of the lumbar spine <60 degrees Range of motion: Extension of the lumbar spine <20 degrees Gaenslen's Test positive Abhinav's Test positive Suraj test: positive right side / left side Thigh Thrust Test Sacral Thrust Test Imaging: Computed tomography scan without contrast of the lumbar spine from 07/09/22 reviewed Assessment/ Plan : Post lumbar laminectomy syndrome Recommendation of medication mgmt. Discontinue Percocet 10/325mg. Replace w Ox ycodone IR 15mg BID prn pain, disp #18 to take Q6-12H prn pain. Use, side effects and adverse reactions discussed and pt verbalized understanding. Denies aspirin or anti- coagulant use or medical history of diabetes. Protocol for discontinuation/ continuation of medications dinora procedure discussed. All questions answered. I have spent greater than 30 minutes on patient care today. Dr Villegas was available by phone for the evaluation of this patient. The time was used to review the medical records including relevant urine studies and Prescription history (MAPs), review of the available imaging, evaluation and examination of the patient, coordination of care with the medical staff and if applicable referring physicians, as well as creation of the medical record - Pain Location Bilateral Lower Leg Non-Pharmacological Interventions: Darkened Room, Distraction Pharmacological Interventions: PRN Medication Pain Comment: dilaudid given per order PQRS Narrative: Do You Want the Pneumonia No Vaccine AT THIS TIME? Blood Pressure [Right Arm] 97/61 Blood Pressure [Left Arm] 114/68 Blood Pressure 115/72 Pain Intensity [Bilateral 9 Lower Leg] Pain Intensity 8 Pain Scale Used Numeric (1 - 10) Scale Used Numeric (1 - 10) Home Medications: Ambulatory Orders Cyclobenzaprine [Flexeril] 5 mg PO TID #20 tablet 06/16/22 Gabapentin 300 mg PO TID #27 cap 06/16/22 Acetaminophen Tab [Tylenol] 1,000 mg PO Q6HR PRN 06/27/22 Cetirizine HCl [Zyrtec] 10 mg PO DAILY 06/27/22 Omeprazole [PriLOSEC] 20 mg PO DAILY 06/27/22 Sennosides/Docusate Sodium [Senna Plus 8.6-50 mg Tablet] 1 tab PO BID PRN 06/27/22 oxyCODONE HCL [oxyCODONE HCL (IR)] 15 mg PO Q6H PRN 3 Days #18 tab 07/10/22 Controlled Substance Measures - Controlled Substance Measures Is patient prescribed a controlled substance at discharge?: Yes When asked, does pt state using other controlled substances?: Yes If prescribed controlled substance>3 days was MAPS reviewed?: No If Rx opioid, was Start Talking consent form obtained?: Yes If opioid is for acute pain is fill amount 7 days or less?: Yes Was information provided regarding opioid addiction?: Yes
--- NOTE | 2022-07-10 14:46 | P.DS ---
Providers Date of admission: 07/09/22 01:58 Expected date of discharge: 07/10/22 Attending physician: Chelsey Whitman MD Consults: 07/09/22 01:58 Consult Physician Routine Consulting Provider: Paul Clark Consult Reason/Comments: known Do you want consulting provider notified?: Yes 07/09/22 04:20 Consult Physician Urgent Consulting Provider: Rosemarie Villegas Consult Reason/Comments: Intractable hip and lower extremity pain Do you want consulting provider notified?: Yes 07/09/22 12:36 Consult Physician Routine Consulting Provider: Rosemarie Villegas Consult Reason/Comments: Pain management Do you want consulting provider notified?: Yes Primary care physician: Bhavesh Langley MD Hospital Course: Intractable hip and lower extremity pain The patient is a 52-year-old female with a PMH of chronic lower back pain status post elective L2/pelvis decompression on 06/13 presented to the emergency room with complaints of intractable bilateral hip and lower extremity pain. In the emergency room, patient was afebrile, 114/69, heart rate 103, 99% on room air. CBC was remarkable for anemia down to 9.8, total cytosis to 498. Chemistries are unremarkable. Liver function tests were unremarkable. Coags were unremarkable. UA showed cloudy appearance, dirty urine with 16 squamous epithelial cells. Patient was seen by orthopedic surgery who recommended repeat lumbar spine CT. Lumbar spine CT showed large fluid consists with chronic hematoma or seroma without markings of abscess. Patient was incidentally seen by pain control who made some adjustments to pain medications on discharge. Patient will follow-up with primary care physician, orthopedic surgery, pain medicine. Gen: awake, alert HEENT: normocephalic, atraumatic, good hearing acuity, moist mucous membranes Resp: good air exchange, breathing comfortably with no accessory muscle use CVS: good distal perfusion x 4, GI: soft, NTTP, ND : no SPT, no CVAT, rodriguez catheter not present MSK: no pitting edema, no clubbing Neuro: non-focal, moving all extremities Psych: cooperative, euthymic mood Patient Condition at Discharge: Good Plan - Discharge Summary Discharge Rx Participant: No New Discharge Prescriptions: New oxyCODONE HCL [oxyCODONE HCL (IR)] 15 mg PO Q6H PRN 3 Days #18 tab PRN Reason: Pain Continue Gabapentin 300 mg PO TID #27 cap Cyclobenzaprine [Flexeril] 5 mg PO TID #20 tablet Acetaminophen Tab [Tylenol] 1,000 mg PO Q6HR PRN PRN Reason: Pain Sennosides/Docusate Sodium [Senna Plus 8.6-50 mg Tablet] 1 tab PO BID PRN PRN Reason: Constipation Omeprazole [PriLOSEC] 20 mg PO DAILY Cetirizine HCl [Zyrtec] 10 mg PO DAILY Discontinued oxyCODONE-APAP 10-325MG [Percocet 10-325 mg] 1 tab PO Q6H PRN PRN Reason: Pain Discharge Medication List Cyclobenzaprine [Flexeril] 5 mg PO TID #20 tablet 06/16/22 [Rx] Gabapentin 300 mg PO TID #27 cap 06/16/22 [Rx] Acetaminophen Tab [Tylenol] 1,000 mg PO Q6HR PRN 06/27/22 [History] Cetirizine HCl [Zyrtec] 10 mg PO DAILY 06/27/22 [History] Omeprazole [PriLOSEC] 20 mg PO DAILY 06/27/22 [History] Sennosides/Docusate Sodium [Senna Plus 8.6-50 mg Tablet] 1 tab PO BID PRN 06/27/22 [History] oxyCODONE HCL [oxyCODONE HCL (IR)] 15 mg PO Q6H PRN 3 Days #18 tab 07/10/22 [Rx] Follow up Appointment(s)/Referral(s): Bhavesh Langley MD [Primary Care Provider] - 1-2 days Discharge Disposition: HOME SELF-CARE
[2022-07-10 15:07] VITALS: BP 95/53; PULSE 107; TEMP 98.5
[2022-07-10] MEDS ORDERED: DEXAMETHASONE SOD PHOSPHATE 4 MG/ML 1 ML VIAL IV SCH (18:00)
== END 2022-07-10 16:07 | disposition home or self-care (01) ==
LOC: EC 21:57 → 6NMEDSUR 07-09 01:58
PROVIDERS: ADMIT Internal Medicine; ATTEND Internal Medicine
DX: G89.18 Other acute postprocedural pain (principal); M96.1 Postlaminectomy syndrome, not elsewhere classified; F11.90 Opioid use, unspecified, uncomplicated; Z91.14 Patient's other noncompliance with medication regimen; G89.29 Other chronic pain; M25.552 Pain in left hip; M25.551 Pain in right hip; E04.2 Nontoxic multinodular goiter; D64.9 Anemia, unspecified; K21.9 Gastro-esophageal reflux disease without esophagitis; J30.2 Other seasonal allergic rhinitis; F17.200 Nicotine dependence, unspecified, uncomplicated; Z79.899 Other long term (current) drug therapy; Z88.8 Allergy status to other drugs, medicaments and biological substances; Z90.49 Acquired absence of other specified parts of digestive tract; Z98.1 Arthrodesis status; Z98.51 Tubal ligation status; Z98.890 Other specified postprocedural states; Z80.9 Family history of malignant neoplasm, unspecified
CPT/HCPCS: 96376 ×3; 96374; 96375; 99285; 80053; 83735; 84100; 85025; 85610; 85730; 81001; 72131; G0378 ×2; J1100; J3360; J2405; J1170 ×2

== ENCOUNTER → 2022-07-12 | Outpatient (CLI) | payer OTHER ==
[~2022-07-12] MED LIST changes: -ACETAMINOPHEN TAB 500 MG TAB PO PRN; -GABAPENTIN 300 MG CAP PO PRN; +KETOROLAC 15 MG/ML 1 ML VIAL IVP NR; +KETOROLAC 30 MG/ML 1 ML VIAL IVP NR; -ONDANSETRON 4 MG/2 ML VIAL IVP PRN; +SODIUM CHLORIDE 0.9% 500 ML 500 ML in EMPTY BAG 1 BAG IV PRN; -TRANEXAMIC ACID IN NACL,ISO-OS 1,000 MG in SALINE 1 100ML.BAG IVPB PRN
[2022-07-12 11:56] VITALS: BP 120/80; PULSE 108; RESP 16; TEMP 98.3
== END ==
LOC: PROCWHC3 11:27
PROVIDERS: ATTEND Physician Assistant Medical
DX: M96.1 Postlaminectomy syndrome, not elsewhere classified (principal); Z88.4 Allergy status to anesthetic agent
CPT/HCPCS: 96365; J1885

== ENCOUNTER 2022-07-15 21:05 | Emergency (ER) | payer OTHER ==
[2022-07-15] MEDS ORDERED: HYDROmorphone 1 MG/ML 1 ML SYRINGE IM STA (21:37)
--- NOTE | 2022-07-15 21:42 | ED ---
Recheck HPI - General Chief Complaint: Back Pain/Injury Stated Complaint: back pain/post surgery Time Seen by Provider: 07/15/22 21:18 Source: patient, RN notes reviewed, old records reviewed Mode of arrival: ambulatory Limitations: no limitations - History of Present Illness Initial Comments: This is a 52-year-old female to the emergency department for evaluation she presents today for evaluation of severe back pain bilateral leg paresthesias numbness and tingling. Recent back surgery multiple recent admissions and revisits for uncontrolled pain. Patient does not want admission today no neurological MD Complaint: medication refill request -: week(s) Returns Today for: persistent/worsening pain related to initial visit Symptoms Since Prior Visit: worsening pain Associated Symptoms: none Treatments Prior to Arrival: Given Pain Meds on - Related Data Home Medications Medication Instructions Recorded Confirmed Acetaminophen Tab [Tylenol] 1,000 mg PO Q6HR PRN 06/27/22 07/12/22 Cetirizine HCl [Zyrtec] 10 mg PO DAILY 06/27/22 07/12/22 Omeprazole [PriLOSEC] 20 mg PO DAILY 06/27/22 07/12/22 Sennosides/Docusate Sodium [Senna 1 tab PO BID PRN 06/27/22 07/12/22 Plus 8.6-50 mg Tablet] Previous Rx's Medication Instructions Recorded Cyclobenzaprine [Flexeril] 5 mg PO TID #20 tablet 06/16/22 Gabapentin 300 mg PO TID #27 cap 06/16/22 oxyCODONE HCL [oxyCODONE HCL (IR)] 15 mg PO Q6H PRN 3 Days #18 tab 07/10/22 Allergies Allergy/AdvReac Type Severity Reaction Status Date / Time succinylcholine Allergy Anaphylaxis Verified 07/15/22 21:09 Review of Systems ROS Statement: Those systems with pertinent positive or pertinent negative responses have been documented in the HPI. ROS Other: All systems not noted in ROS Statement are negative. Past Medical History Additional Past Medical History / Comment(s): herniated discs. thyroid nodules History of Any Multi-Drug Resistant Organisms: None Reported Past Surgical History: Cholecystectomy, Orthopedic Surgery, Tonsillectomy, Tubal Ligation Additional Past Surgical History / Comment(s): right hand nerve repair, L2 to pelvis decompression and fusion (06/13/22) Past Anesthesia/Blood Transfusion Reactions: Previous Problems w/ Anesthesia Additional Past Anesthesia/Blood Transfusion Reaction / Comment(s): when pt was a child and had her tonsils removed-"heart stopped" Past Psychological History: No Psychological Hx Reported Smoking Status: Current some day smoker Past Alcohol Use History: None Reported Past Drug Use History: Marijuana - Past Family History Mother Family Medical History: Cancer Father Family Medical History: Cancer General Exam Limitations: no limitations General appearance: alert, in no apparent distress Head exam: Present: atraumatic, normocephalic, normal inspection Eye exam: Present: normal appearance, PERRL, EOMI. Absent: scleral icterus, conjunctival injection, periorbital swelling ENT exam: Present: normal exam, mucous membranes moist Neck exam: Present: normal inspection. Absent: tenderness, meningismus, lymphadenopathy Respiratory exam: Present: normal lung sounds bilaterally. Absent: respiratory distress, wheezes, rales, rhonchi, stridor Cardiovascular Exam: Present: regular rate, normal rhythm, normal heart sounds. Absent: systolic murmur, diastolic murmur, rubs, gallop, clicks GI/Abdominal exam: Present: soft, normal bowel sounds. Absent: distended, tenderness, guarding, rebound, rigid Extremities exam: Present: normal inspection, full ROM, normal capillary refill. Absent: tenderness, pedal edema, joint swelling, calf tenderness Back exam: Present: normal inspection Neurological exam: Present: alert, oriented X3, CN II-XII intact Psychiatric exam: Present: normal affect, normal mood Skin exam: Present: warm, dry, intact, normal color. Absent: rash Course Vital Signs 07/15/22 21:07 Temperature 98.7 F Pulse Rate 100 Respiratory 20 Rate Blood Pressure 124/65 O2 Sat by Pulse 99 Oximetry - Reevaluation(s) Reevaluation #1: 07/15/22 21:41 Medical records reviewed Reevaluation #2: 07/15/22 21:41 Patient informed results and questions answered Reevaluation #3: 07/15/22 21:41 Patient feels improved able ambulate Medical Decision Making - Medical Decision Making 52-year-old female for acute on chronic back pain. Back pain is controlled currently patient does not want observation the hospital is that his been was done the last couple time she came to the hospital and patient can be discharged home Disposition Clinical Impression: Postoperative pain, Mid back pain, Bilateral leg paresthesia Disposition: HOME SELF-CARE Condition: Fair Instructions (If sedation given, give patient instructions): Acute Low Back Pain (ED) Is patient prescribed a controlled substance at d/c from ED?: No Referrals: Bhavesh Langley MD [Primary Care Provider] - 1-2 days Time of Disposition: 21:45
[2022-07-15 22:30] VITALS: BP 95/54; PULSE 92; RESP 16; TEMP 98.1
== END 2022-07-15 22:08 | disposition home or self-care (01) ==
LOC: EC 21:05
DX: G89.18 Other acute postprocedural pain (principal); M54.50 Low back pain, unspecified; R20.2 Paresthesia of skin; F17.200 Nicotine dependence, unspecified, uncomplicated; F12.90 Cannabis use, unspecified, uncomplicated; Z88.4 Allergy status to anesthetic agent
CPT/HCPCS: 99283; 96372; J1170

== ENCOUNTER → 2022-07-31 | Outpatient (CLI) | payer OTHER ==
[2022-07-31 10:23] VITALS: BP 118/67; PULSE 97; RESP 18
--- NOTE | 2022-07-31 14:39 | P.PAINPG ---
Objective - Vital Signs Vital signs: Vital Signs Temp Pulse 97 07/31/22 10:18 Resp 18 07/31/22 10:18 BP 118/67 07/31/22 10:18 Pulse Ox 98 07/31/22 10:18 FiO2 Intake & Output 07/30/22 07/31/22 07/31/22 18:59 06:59 18:59 Weight 104.326 kg PQRS Measure Charge Sheet Mode of Arrival: Ambulatory Comment: HISTORY OF PRESENT ILLNESS: 52 yr old female as a referral from [facility] presents today w severe and chronic LBP secondary to post laminectomy syndrome for evaluation. Pt states pain level is at 9/10 in intensity, constant, localized in the mid to lower aspect of the lumbar spine, achy in character w shooting pain towards the BLEs, L>R. Pain is provoked by bending, lifting, twisting. Pain is alleviated by PT 2 sessions but too painful, heat, ice, meds (Percocet 10/325mg, Neurontin), home exercise regimen too painful, repositioning and rest. PMH: Lumbar Disc Herniation, Thyroid Nodule, Seasonal Allergy, GERD PSH: Cholecystectomy, L2-P Fusion/ Decompression (May 2022), Tonsillectomy, Tubal Ligation SH: Daily tobacco use, +Cannabis use, No ETOH abuse. and lives w spouse. FH: Mo- CA. Fa- CA. All: See list Meds: See list REVIEW OF ORGAN SYSTEMS: CONSTITUTIONAL: No fevers or chills. No recent weight loss. NEUROLOGICAL: + numbness and tingling along the distal extremities. No seizure disorders or headaches. MUSCULOSKELETAL: + pain PSYCHIATRIC: Denies current depression or suicidal thoughts. Physical Examinations : Constitutional : Cooperative , not in acute distress . Neurologic : Cranial nerve II to XII intact. No focal neurological deficits. Psychiatric : alert & oriented x 3. Matching mood & appropriate affect. Judgment & insight intact. Musculoskeletal : Cervical Spine Motor strength in the deltoid and biceps: Normal right side. Normal Left side Motor strength biceps and the wrist extensors: Normal right side . Normal left side Motor strength in the triceps muscle: Normal right side. Normal left side Deep tendon reflexes: Normal at the biceps. Normal at Brachioradialis. Normal at triceps Vertebral body tenderness to deep palpation over Cervical facet loading test: positive bilaterally Spurling test: positive bilaterally Neck distraction test: positive bilaterally Nellie sign: positive bilaterally Lumbar spine INCISIONAL SCARS INTACT Motor strength lower extremities ,thigh and legs 5/5 Right side , 5/5 Left side Deep tendon reflexes : Normal Knee Jerk. Normal Ankle Jerk Vertebral body tenderness over L4, L5 Lumbar facet Loading Test: positive Right / positive Left Range of motion of the lumbar spine Flexion 30 degrees, extension 10 degrees Straight Leg Raise test: Left/ Right positive at degree Suraj test: positive right / positive left. Severe tenderness over the Sacroiliac joint on the Right / Left sides Gaenslen test: positive bilaterally Seated flexion test: positive bilaterally. Sacral spine : Severe tenderness over the Sacroiliac joint: right side / left side Range of motion: Flexion of the lumbar spine <60 degrees Range of motion: Extension of the lumbar spine <20 degrees Gaenslen's Test positive Abhinav's Test positive Suraj test: positive right side / left side Thigh Thrust Test Sacral Thrust Test Imaging: MRI without contrast of the lumbar spine reviewed Assessment/ Plan : Post laminectomy syndrome Recommendation of Caudal GABY. May need a series, up to every 3 mo, for optimal pain relief. Risks, benefits of procedure discussed and patient verbalized understanding. Denies aspirin or anti- coagulant use or medical history of diabetes. Protocol for discontinuation/ continuation of medications dinora procedure discussed. Percocet 10/325mg #120 w 1 RF. Use, side effects and adverse reactions discussed and pt verbalized understanding. Will check UDS at next visit. Narcotic and Opiate agreement signed today 07/31/22. Narcan 0.4 prn opioid reversal w use discussed. Pt and lives w spouse. All questions answered. I have spent greater than 30 minutes on patient care today. Dr Villegas was available by phone for the evaluation of this patient. The time was used to review the medical records including relevant urine studies and Prescription history (MAPs), review of the available imaging, evaluation and examination of the patient, coordination of care with the medical staff and if applicable referring physicians, as well as creation of the medical record - Pain Location Lower Back Non-Pharmacological Interventions: Heat, Home Exercise, Ice, Inactivity, Physical Therapy, Position/Reposition, Sitting, Stretching Pharmacological Interventions: PRN Medication, Scheduled Medication, Topical Medication PQRS Narrative: Blood Pressure 118/67 Pain Intensity [Lower Back] 9 Scale Used Numeric (1 - 10) Home Medications: Ambulatory Orders Acetaminophen Tab [Tylenol] 1,000 mg PO Q6HR PRN 06/27/22 Cetirizine HCl [Zyrtec] 10 mg PO DAILY 06/27/22 Omeprazole [PriLOSEC] 20 mg PO DAILY 06/27/22 Sennosides/Docusate Sodium [Senna Plus 8.6-50 mg Tablet] 1 tab PO BID PRN 06/27/22 Naloxone HCl [Narcan] 4 mg NASAL ONCE PRN 365 Days #1 each 07/31/22 oxyCODONE HCL/ACETAMINOPHEN [Percocet 10-325 mg Tablet] 1 each PO QID PRN 30 Days #120 tab 07/31/22 oxyCODONE HCL/ACETAMINOPHEN [Percocet 10-325 mg] 1 tab PO Q6HR PRN 30 Days #120 tab 07/31/22 Controlled Substance Measures - Controlled Substance Measures Is patient prescribed a controlled substance at discharge?: Yes When asked, does pt state using other controlled substances?: No If prescribed controlled substance>3 days was MAPS reviewed?: Yes If Rx opioid, was Start Talking consent form obtained?: Yes Was information provided regarding opioid addiction?: Yes
== END | disposition home or self-care (01) ==
LOC: PNWHC3 10:00
PROVIDERS: ATTEND Specialist
DX: M96.1 Postlaminectomy syndrome, not elsewhere classified (principal); Z88.8 Allergy status to other drugs, medicaments and biological substances
CPT/HCPCS: 99211

== ENCOUNTER 2022-08-01 16:02 | Emergency (ER) | payer OTHER ==
[2022-08-01] MEDS ORDERED: KETOROLAC 15 MG/ML 1 ML VIAL IM STA (17:18)
--- NOTE | 2022-08-01 17:29 | ED ---
Back Pain HPI - General Chief Complaint: Back Pain/Injury Stated Complaint: Post-op complications Time Seen by Provider: 08/01/22 17:17 Source: patient, RN notes reviewed Limitations: no limitations - History of Present Illness Initial Comments: Patient is a 52-year-old male presenting to the emergency room with complaints of increase in chronic back pain with radiculopathy into her left limb. She reports that she ran out of Percocet 2 days ago and is on not able to get a prescription for them until Sunday. Review of her MAPs show that she was prescribed 30 day supply of Percocet on June 28 and a seven-day supply of Percocet on July 26 and at this time should continue to have Percocet available to her at home. She states that she has had an increase in cough due to nasal congestion and drainage which has caused her back pain to increase. She denies any changes in her pain characteristics or radiculopathy in length just reports increased intensity. She denies any bowel or bladder incontinence or saddle her seizure other red plexus posterior caudae equina. - Related Data Home Medications Medication Instructions Recorded Confirmed Acetaminophen Tab [Tylenol] 1,000 mg PO Q6HR PRN 06/27/22 07/31/22 Cetirizine HCl [Zyrtec] 10 mg PO DAILY 06/27/22 07/31/22 Omeprazole [PriLOSEC] 20 mg PO DAILY 06/27/22 07/31/22 Sennosides/Docusate Sodium [Senna 1 tab PO BID PRN 06/27/22 07/31/22 Plus 8.6-50 mg Tablet] Previous Rx's Medication Instructions Recorded Naloxone HCl [Narcan] 4 mg NASAL ONCE PRN 365 Days #1 07/31/22 each oxyCODONE HCL/ACETAMINOPHEN 1 each PO QID PRN 30 Days #120 tab 07/31/22 [Percocet 10-325 mg Tablet] oxyCODONE HCL/ACETAMINOPHEN 1 tab PO Q6HR PRN 30 Days #120 tab 07/31/22 [Percocet 10-325 mg] Allergies Allergy/AdvReac Type Severity Reaction Status Date / Time succinylcholine Allergy Anaphylaxis Verified 08/01/22 16:10 Review of Systems ROS Statement: Those systems with pertinent positive or pertinent negative responses have been documented in the HPI. ROS Other: All systems not noted in ROS Statement are negative. Past Medical History Additional Past Medical History / Comment(s): herniated discs. thyroid nodules History of Any Multi-Drug Resistant Organisms: None Reported Past Surgical History: Cholecystectomy, Orthopedic Surgery, Tonsillectomy, Tubal Ligation Additional Past Surgical History / Comment(s): right hand nerve repair, L2 to pelvis decompression and fusion (06/13/22) Past Anesthesia/Blood Transfusion Reactions: Previous Problems w/ Anesthesia Additional Past Anesthesia/Blood Transfusion Reaction / Comment(s): when pt was a child and had her tonsils removed-"heart stopped" Past Psychological History: No Psychological Hx Reported Smoking Status: Current every day smoker Past Alcohol Use History: None Reported Past Drug Use History: None Reported - Past Family History Mother Family Medical History: Cancer Father Family Medical History: Cancer General Exam Limitations: no limitations General appearance: alert, in no apparent distress Head exam: Present: atraumatic, normocephalic, normal inspection Eye exam: Present: normal appearance, PERRL. Absent: scleral icterus, conjunctival injection, periorbital swelling, periorbital tenderness ENT exam: Present: normal exam Neck exam: Present: normal inspection, full ROM Respiratory exam: Absent: respiratory distress, accessory muscle use Cardiovascular Exam: Present: regular rate GI/Abdominal exam: Absent: distended Extremities exam: Absent: pedal edema, joint swelling Back exam: Present: tenderness Neurological exam: Present: alert, oriented X3, CN II-XII intact Expanded Motor strength exam: RLE: 4, LLE: 4 Psychiatric exam: Present: normal affect, normal mood Skin exam: Present: warm, dry, intact, normal color. Absent: rash Course Vital Signs 08/01/22 08/01/22 08/01/22 16:07 17:31 19:08 Temperature 98 F 98.1 F Pulse Rate 96 77 92 Respiratory 20 16 18 Rate Blood Pressure 107/63 115/67 100/77 O2 Sat by Pulse 99 96 99 Oximetry Medical Decision Making - Medical Decision Making 52-year-old female presenting to the emergency room with complaints of ongoing back pain which she reports is worsened since intervention on her back back in June; she is following with pain management and orthopedist on with her primary care provider. She has radiculopathy and weakness but does not have any new trauma, new radiculopathy or new weakness. X-ray lumbar spine image reviewed by me showing and placed hardware with no acute abnormalities. No indication for further diagnostic imaging. Long discussion with patient regarding previous prescriptions for pain medications and acute pain indications. No acute abnormalities on imaging. Vital signs stable. No indication for IV narcotics or narcotics. Toradol given with minimal response. Patient demanding narcotics and advised not to be received here in the emergency department and needs follow-up with her pain management provider. Long discussion with patient and spouse regarding opiate management and follow- up with pain management along with adherents to pain medication regimen and discussion with pain specialist, orthopedist and/or primary care provider regarding titration of pain medication. No acute indication for analgesic need. Will discharge patient home in stable condition and advised to follow-up with orthopedist, pain management and her primary care provider. Case discussed with Dr. Stauffer - Radiology Data Radiology results: report reviewed, image reviewed X-ray lumbar sacral spine interpretation by radiologist postsurgical changes with hardware intact. No obvious acute process. Disposition Clinical Impression: Chronic back pain Disposition: HOME SELF-CARE Condition: Stable Instructions (If sedation given, give patient instructions): Chronic Back Pain (DC) Additional Instructions: Please take your prescriptions as prescribed. Please follow-up with your primary care provider and orthopedist along with pain management. Please return to the Emergency Department if symptoms worsen. Is patient prescribed a controlled substance at d/c from ED?: No Referrals: Bhavesh Langley MD [Primary Care Provider] - 1-2 days Time of Disposition: 18:59
--- NOTE | 2022-08-01 18:18 | XR ---
EXAMINATION TYPE: XR lumbosacral spine min 4V DATE OF EXAM: 08/01/2022 5:41 PM INDICATION: Patient age:Female; 52 years old; Reason for study: Back pain. COMPARISON: Lumbar radiographs 06/13/2022 CT lumbar spine 07/09/2022 TECHNIQUE: Frontal, lateral , bilateral oblique and coned in L5-S1 lateral views of the spine. FINDINGS: Postsurgical changes of lower lumbar spine. Hardware appears intact. Discectomy changes at multiple levels. No obvious acute fracture identified. Surgical clips project over the pelvis. IMPRESSION: Since of postsurgical changes with hardware intact. No obvious acute process.
[2022-08-01 19:09] VITALS: BP 100/77; PULSE 92; RESP 18; TEMP 98.1
== END 2022-08-01 19:09 | disposition home or self-care (01) ==
LOC: EC 16:02
DX: G89.29 Other chronic pain (principal); M54.9 Dorsalgia, unspecified; F17.200 Nicotine dependence, unspecified, uncomplicated; Z88.5 Allergy status to narcotic agent
CPT/HCPCS: 72110; 99283; 96372; J1885

== ENCOUNTER 2022-08-21 22:04 | Emergency (ER) | payer OTHER ==
[2022-08-21] MEDS ORDERED: ORPHENADRINE 30 MG/ML 2 ML VIAL IM STA (22:45)
[2022-08-21] MEDS ORDERED: DEXAMETHASONE SOD PHOSPHATE 10 MG/ML 1 ML VIAL IM STA (22:45)
[2022-08-21] MEDS ORDERED: KETOROLAC 15 MG/ML 1 ML VIAL IM STA (22:45)
[2022-08-21 23:17] VITALS: BP 112/66; PULSE 76; RESP 17; TEMP 98.9
--- NOTE | 2022-08-21 23:48 | XR ---
EXAMINATION TYPE: XR lumbar spine 2 or 3V DATE OF EXAM: 08/21/2022 COMPARISON: 08/01/2022 HISTORY: Fall. Back pain TECHNIQUE: 3 views FINDINGS: There are rods and screws fusing posteriorly the lumbar spine from the level of L2-S1 and S 2. There is multilevel disc prosthesis. Normal alignment. Sacroiliac joints are intact. There are clips from cholecystectomy. There are clips from tubal ligation. IMPRESSION: Multilevel fusion surgery. No compression fracture. No significant change compared to old exam.
[2022-08-21] MEDS ORDERED: MORPHINE SULFATE 4 MG/ML SYRINGE IM STA (23:55)
--- NOTE | 2022-08-21 23:57 | ED ---
Back Pain HPI - General Chief Complaint: Back Pain/Injury Stated Complaint: Fall, Back injury Time Seen by Provider: 08/21/22 22:35 Source: patient Limitations: no limitations - History of Present Illness Initial Comments: Patient is a 52-year-old female presenting with chief complaint of back pain. Patient does have history of back pain, had surgery performed by Dr. Clark on 06/13. Patient states that she slipped in her bathroom today and fell into her toilet. Patient states she did not fully fall, however she stumbled into the toilet. She is admitting to some left-sided back pain with radiation down the leg. No saddle paresthesia or loss of bowel or bladder control. Patient has been taking Percocet and gabapentin at home for pain. Patient is able to ambulate, however there is pain on the left side. - Related Data Home Medications Medication Instructions Recorded Confirmed Acetaminophen Tab [Tylenol] 1,000 mg PO Q6HR PRN 06/27/22 07/31/22 Cetirizine HCl [Zyrtec] 10 mg PO DAILY 06/27/22 07/31/22 Omeprazole [PriLOSEC] 20 mg PO DAILY 06/27/22 07/31/22 Sennosides/Docusate Sodium [Senna 1 tab PO BID PRN 06/27/22 07/31/22 Plus 8.6-50 mg Tablet] Previous Rx's Medication Instructions Recorded Naloxone HCl [Narcan] 4 mg NASAL ONCE PRN 365 Days #1 07/31/22 each oxyCODONE HCL/ACETAMINOPHEN 1 each PO QID PRN 30 Days #120 tab 07/31/22 [Percocet 10-325 mg Tablet] oxyCODONE HCL/ACETAMINOPHEN 1 tab PO Q6HR PRN 30 Days #120 tab 07/31/22 [Percocet 10-325 mg] Allergies Allergy/AdvReac Type Severity Reaction Status Date / Time succinylcholine Allergy Anaphylaxis Verified 08/01/22 16:10 Review of Systems ROS Statement: Those systems with pertinent positive or pertinent negative responses have been documented in the HPI. ROS Other: All systems not noted in ROS Statement are negative. Past Medical History Additional Past Medical History / Comment(s): herniated discs. thyroid nodules History of Any Multi-Drug Resistant Organisms: None Reported Past Surgical History: Cholecystectomy, Orthopedic Surgery, Tonsillectomy, Tubal Ligation Additional Past Surgical History / Comment(s): right hand nerve repair, L2 to pelvis decompression and fusion (06/13/22) Past Anesthesia/Blood Transfusion Reactions: Previous Problems w/ Anesthesia Additional Past Anesthesia/Blood Transfusion Reaction / Comment(s): when pt was a child and had her tonsils removed-"heart stopped" Past Psychological History: No Psychological Hx Reported Smoking Status: Current every day smoker Past Alcohol Use History: None Reported Past Drug Use History: None Reported - Past Family History Mother Family Medical History: Cancer Father Family Medical History: Cancer General Exam Limitations: no limitations General appearance: alert, in no apparent distress Head exam: Present: atraumatic, normocephalic, normal inspection Eye exam: Present: normal appearance Neck exam: Present: normal inspection Extremities exam: Present: normal inspection, full ROM Back exam: Present: normal inspection, paraspinal tenderness. Absent: vertebral tenderness Neurological exam: Present: alert, oriented X3, CN II-XII intact Psychiatric exam: Present: normal affect, normal mood Skin exam: Present: warm, dry, intact, normal color. Absent: rash Course Vital Signs 08/21/22 08/21/22 22:05 23:17 Temperature 97.5 F L 98.9 F Pulse Rate 85 76 Respiratory 16 17 Rate Blood Pressure 110/59 112/66 O2 Sat by Pulse 98 97 Oximetry Medical Decision Making - Medical Decision Making Patient is a 52-year-old female with history of surgery to the lumbar spine on 06/[address] Clark presenting with chief complaint of back pain. Patient slipped and stumbled in the bathroom today and states that she has some left- sided back pain ever since. No red flag symptoms. On examination there is paraspinal muscle tenderness, no vertebral body tenderness. Patient is given pain medication. X-ray shows no compression fracture or significant change compared to old exam. This is confirmed by my interpretation. Patient reports improvement after pain medication. Instructed to follow-up with her surgeon. Follow-up with PCP. Report back to ER with any new or worsening symptoms. Discussed return parameters and answered all questions. Patient conveyed verbal understanding and agreed to the plan. I discussed this case in detail with my attending Dr. Singh Disposition Clinical Impression: Mechanical back pain, Strain of lumbar region, Lumbar radiculopathy Disposition: HOME SELF-CARE Condition: Good Instructions (If sedation given, give patient instructions): Acute Low Back Pain (ED) Additional Instructions: Follow-up with PCP and your orthopedist. Report back to ER with any new or worsening symptoms. Is patient prescribed a controlled substance at d/c from ED?: No Referrals: Bhavesh Langley MD [Primary Care Provider] - 1-2 days Paul Clark DO [Doctor of Osteopathic Medicine] - 1-2 days Time of Disposition: 23:56
== END 2022-08-22 00:05 | disposition home or self-care (01) ==
LOC: EC 22:04
DX: S39.012A Strain of muscle, fascia and tendon of lower back, initial encounter (principal); M54.16 Radiculopathy, lumbar region; F17.200 Nicotine dependence, unspecified, uncomplicated; Z88.4 Allergy status to anesthetic agent; W18.12XA Fall from or off toilet with subsequent striking against object, initial encounter
CPT/HCPCS: 72100; 99283; 96372 ×4; J2270; J1100; J2360; J1885

== ENCOUNTER 2022-09-12 12:49 | Day surgery (SDC) | payer OTHER ==
[2022-09-08 15:00] VITALS: BMI 34.9
[~2022-09-12 12:49] MED LIST changes: -KETOROLAC 15 MG/ML 1 ML VIAL IVP NR; -KETOROLAC 30 MG/ML 1 ML VIAL IVP NR; +LACTATED RINGERS 1,000 ML IV SCH; +LIDOCAINE 1% (10MG/ML) FOR IV START INTRADERMA PRN; -SODIUM CHLORIDE 0.9% 500 ML 500 ML in EMPTY BAG 1 BAG IV PRN
[2022-09-12 13:07] VITALS: RESP 16; TEMP 97.8
[2022-09-12] MEDS ORDERED: MIDAZOLAM 2 MG/2 ML VIAL ONE (13:15)
[2022-09-12] MEDS ORDERED: methylPREDNISolone ACETATE 80 MG/ML 1 ML VIAL ONE (13:15)
[2022-09-12] MEDS ORDERED: fentaNYL (PF) 50 MCG/ML 2 ML AMP ONE (13:15)
[2022-09-12] MEDS ORDERED: IOPAMIDOL M200 10 ML VIAL ONE (13:15)
--- NOTE | 2022-09-12 13:27 | P.PCN ---
Date of Procedure: 09/12/22 Procedure(s) Performed: PREOPERATIVE DIAGNOSIS:- 1-lumbar radiculopathy 2-Lumbar post laminectomy syndrome. POSTOPERATIVE DIAGNOSIS: 1-Lumbar post laminectomy syndrome. 2-lumbar radiculopathy PROCEDURE: 1. Caudal epidural steroid injection under fluoroscopic guidance. (Fluoroscopy images available in the radiology department ) 2. Caudal epidurogram ANESTHESIA: moderate sedation with IV versed 2 mg ,and fentanyl 200 mcg Sedation start time: 1318 . Sedations stop time :1324 EBL: None. PROCEDURE INDICATION: The patient with neuropathic pain radiating distally returns for caudal epidural steroid injection. PROCEDURE DESCRIPTION: The patient was seen and identified in the preoperative area. Risks, benefits, complications, and alternatives were discussed with the patient. The patient agreed to proceed with the procedure and signed the consent. IV was started, and vital signs were stable. Patient was taken to the OR and time out was completed. The patient was placed in the prone position on procedure table and a pillow was placed under the abdomen to reduce lumbar lordosis. The lumbosacral area was prepped and draped in the usual sterile fashion. Critical pause was taken. Vital signs were closely monitored during the procedure. Using lateral fluoroscopy the anterior-posterior plates of the sacrum were identified and the skin and deeper tissues corresponding into sacrococcygeal ligament were anesthetized using approximately 3 mL of 1% lidocaine. Then under fluoroscopy, a 3-1/2-inch 20-gauge Tuohy epidural needle was guided through the sacrococcygeal ligament, and into the epidural space. After negative aspiration, a 2 mL of Isovue 200 contrast dye was injected with excellent epidurogram. Again after negative aspiration for CSF, blood, and with no paresthesias, then Depo-Medrol 80mg, 2ml of 1% preservative free Lidocaine with 6 ml of preservative free normal saline(total of 10ml)solution was injected with washout of epidurogram. Needle was withdrawn intact. Skin was cleansed, and bandage was applied. COMPLICATIONS: None DISPOSITION / PLANS: The patient was placed in a supine position and transferred to the recovery area in a stable condition for observation and was discharged from the recovery room after meeting discharge criteria. Home discharge instructions given to the patient by the staff. The patient was reexamined prior to discharge. The patient will schedule a follow up in the clinic in 2-4 weeks.
[2022-09-12] MEDS ORDERED: IV FLUID CONTINUATION 900 ML IV ONE (13:31)
[2022-09-12 13:49] VITALS: BP 103/65; PULSE 82
--- NOTE | 2022-09-12 15:05 | FL ---
EXAMINATION TYPE: FL guided pain mgmt statistic DATE OF EXAM: 09/12/2022 FLUOROSCOPY Fluoroscopy time of 5 seconds was used during caudal epidural injection. 2 image/s document/s the kacy edmonds.
== END 2022-09-12 14:03 | disposition home or self-care (01) ==
LOC: ORPAIN 12:49
PROVIDERS: ATTEND Specialist
DX: M96.1 Postlaminectomy syndrome, not elsewhere classified (principal); M54.16 Radiculopathy, lumbar region
CPT/HCPCS: 62323; J2250; J1040; J3010; Q9966

== ENCOUNTER → 2022-09-25 | Outpatient (CLI) | payer OTHER ==
[2022-09-25 11:26] VITALS: BP 114/75; PULSE 80; RESP 18; TEMP 98.1
--- NOTE | 2022-09-25 14:47 | P.PAINPG ---
PQRS Measure Charge Sheet Comment: A 52 yr old female with a history of severe and chronic low back pain x 4 mo secondary to lumbar DDD and spondylosis with facet arthropathy without myelopathy presents today for medication refills and evaluation s/p Caudal GABY. Pt states she received 60% x 4 days s/p procedure. Pain level is currently at 7 /10 in intensity, constant, localized in the lumbar spine, burning/ stabbing shooting towards the LLE. Pain is provoked by climbing stairs and lifting. Pain is alleviated with medications, ice, laying supine and rest. Interventional pain procedures completed include Caudal GABY Patient is currently on Percocet 10/325mg #120 Patient denies any side effects of the medication(s), denies excessive d rowsiness or sleepiness, denies suicidal ideation and reports that the current pain medication is helping to control the pain and improve activities of daily living. Patient denies any motor or sensory deficits. Patient denies any fever or night sweats, denies any change in the bowel movements or urination. Physical Examination: -Constitutional: Cooperative. Not in acute distress . - Neurologic: Cranial nerve II to XII intact. No focal neurological deficits. - Psychatric: Alert & oriented x 3. Matching mood & appropriate affect. Judgment and insight intact. - Musculoskeletal: Cervical spine: Muscle bulk/ tone/ strength in the bilateral upper extremities normal Vertebral body tenderness to palpation over Spurling test positive Distraction test positive Facet loading test positive Thoracic spine Muscle bulk / tone/ strength in the bilateral paraspinal muscles normal Vertebral body tender to palpation over Facet loading test positive Lumbar spine: Motor bulk/ tone/ strength lower extremities , thigh and legs : 5/5 Deep tendon reflexes : Normal Knee Jerk. Normal Ankle Jerk . Vertebral body tenderness to palpation over L4, L5 Lumbar Facet Loading Test positive Straight Leg Raise: positive at 30 degrees right side/ left side Gaenslen's Test positive Sacral spine : Severe tenderness over the Sacroiliac joint: right side / left side Range of motion: Flexion of the lumbar spine <60 degrees Range of motion: Extension of the lumbar spine <20 degrees Gaenslen's Test positive Suraj test: positive right side / left side Thigh Thrust Test Sacral Thrust Test Assessment and plan: Chronic low back pain secondary to post laminectomy syndrome Chronic and current use of high-risk medication (Opioids). The patient was counseled about risk of opioid use, psychological risk associated with opioids and was orally counseled to not overuse , divert or sell medications. Pt is to store medication in a safe location. The patient is counseled against driving while using narcotic medications and also not to use alcohol or any illicit recreational drugs. Patient verbalized understanding that the lack of compliance will result in failure to renew narcotic prescription(s) as well as possible discharge from the clinic Diagnoses, prognosis and treatment options including but not limited to physical therapy, surgical interventions, interventional therapies and medication management including narcotics and adjuvant medication were discussed. All patient questions answered MAPS reviewed and it was appropriate. UDS to be collected today 09/25/22. Prescription refill for Percocet 10/325mg #120 w 1 RF I have spent less than 30 minutes on patient care today. Dr Villegas was available by phone for the evaluation of this patient. The time was used to review the medical records including relevant urine studies and Prescription history (MAPs), review of the available imaging, evaluation and examination of the patient, coordination of care with the medical staff and if applicable referring physicians, as well as creation of the medical record Home Medications: Ambulatory Orders Acetaminophen Tab [Tylenol] 1,000 mg PO Q6HR PRN 06/27/22 Cetirizine HCl [Zyrtec] 10 mg PO DAILY 06/27/22 Omeprazole [PriLOSEC] 20 mg PO DAILY PRN 06/27/22 Sennosides/Docusate Sodium [Senna Plus 8.6-50 mg Tablet] 1 tab PO BID PRN 06/27/22 oxyCODONE HCL/ACETAMINOPHEN [Percocet 10-325 mg Tablet] 1 each PO QID PRN 30 Days #120 tab 07/31/22 Fluticasone Nasal [place] [Flonase Nasal [place]] 1 spray NASAL DAILY 09/08/22 Controlled Substance Measures - Controlled Substance Measures Is patient prescribed a controlled substance at discharge?: Yes When asked, does pt state using other controlled substances?: Yes If prescribed controlled substance>3 days was MAPS reviewed?: Yes If Rx opioid, was Start Talking consent form obtained?: Yes Was information provided regarding opioid addiction?: Yes
== END ==
LOC: PNWHC3 10:35
PROVIDERS: ATTEND Specialist
DX: M96.1 Postlaminectomy syndrome, not elsewhere classified (principal); M54.50 Low back pain, unspecified; Z79.891 Long term (current) use of opiate analgesic; Z88.4 Allergy status to anesthetic agent
CPT/HCPCS: 80307; G0482; G0463; 99212

== ENCOUNTER → 2022-11-22 | Outpatient (CLI) | payer OTHER | END | disposition home or self-care (01) | LOC: LABWHC1 15:26 | PROVIDERS: ATTEND Internal Medicine | DX: Z53.9 Procedure and treatment not carried out, unspecified reason (principal) ==

== ENCOUNTER 2022-12-05 02:21 | Emergency (ER) | payer OTHER ==
[2022-12-05 02:26] VITALS: BP 100/64; PULSE 92; RESP 18; TEMP 97.5
[2022-12-05] MEDS ORDERED: ORPHENADRINE 30 MG/ML 2 ML VIAL IM STA (02:44)
[2022-12-05] MEDS ORDERED: KETOROLAC 15 MG/ML 1 ML VIAL IM STA (02:44)
[2022-12-05] MEDS ORDERED: predniSONE 20 MG TAB PO STA (02:44)
--- NOTE | 2022-12-05 02:48 | ED ---
General Adult HPI - General Chief complaint: Back Pain/Injury Stated complaint: back pain,left leg pain Time Seen by Provider: 12/05/22 02:26 Source: patient Mode of arrival: wheelchair Limitations: no limitations - History of Present Illness Initial comments: This is a 52-year-old female with a past medical history including previous spinal fusion in May presents emergency department for low back pain and pain at the left buttock. The patient stated that this pain is been present over the last 1 day and cause her to not be able to sleep. The patient stated that the pain originates at the posterior left buttock and does shoot down her leg. The patient denied any trauma to the back and stated that she did feel as if it or chronic back pain. The patient stated that she only has Tylenol and gabapentin at home and does not of any additional Percocet tablets that she normally usually had. The patient denied any urinary or fecal incontinence. The patient had full range of motion of her bilateral lower extremities and denied any numbness or tingling. The patient throughout my evaluation requested multiple times for Dilaudid and multiple other narcotics. The patient stated that "anti-inflammatories don't do anything for me and why can I not have narcotics?" The patient did however deny any further acute pain or distress and was resting in bed comfortably. - Related Data Home Medications Medication Instructions Recorded Confirmed Acetaminophen Tab [Tylenol] 1,000 mg PO Q6HR PRN 06/27/22 11/20/22 Cetirizine HCl [Zyrtec] 10 mg PO DAILY 06/27/22 11/20/22 Omeprazole [PriLOSEC] 20 mg PO DAILY PRN 06/27/22 11/20/22 Sennosides/Docusate Sodium [Senna 1 tab PO BID PRN 06/27/22 11/20/22 Plus 8.6-50 mg Tablet] Fluticasone Nasal [place] [Flonase 1 spray NASAL DAILY 09/08/22 11/20/22 Nasal [place]] Previous Rx's Medication Instructions Recorded oxyCODONE HCL/ACETAMINOPHEN 1 each PO QID PRN 30 Days #120 tab 09/25/22 [Percocet 10-325 mg] oxyCODONE HCL/ACETAMINOPHEN 1 tab PO Q6HR PRN 30 Days #120 tab 09/25/22 [Percocet 10-325 mg] Naproxen Sodium [Naproxen Sodium 500 mg PO DAILY 30 Days #60 tab 11/20/22 ER] Lidocaine 5% Patch [Lidoderm] 1 patch TOPICAL DAILY #10 patch 12/05/22 Naproxen [EC-Naproxen] 500 mg PO BID #30 tab 12/05/22 methocarbamoL [Robaxin-750] 750 mg PO TID #30 tab 12/05/22 predniSONE [Deltasone] 40 mg PO DAILY #8 tab 12/05/22 Allergies Allergy/AdvReac Type Severity Reaction Status Date / Time succinylcholine Allergy Anaphylaxis Verified 12/05/22 02:23 Review of Systems ROS Statement: Those systems with pertinent positive or pertinent negative responses have been documented in the HPI. ROS Other: All systems not noted in ROS Statement are negative. Past Medical History Additional Past Medical History / Comment(s): Herniated discs, thyroid nodules. History of Any Multi-Drug Resistant Organisms: None Reported Past Surgical History: Back Surgery, Cholecystectomy, Orthopedic Surgery, Tonsillectomy, Tubal Ligation Additional Past Surgical History / Comment(s): Right hand nerve repair, L2 to pelvis decompression and fusion (06/13/22). Past Anesthesia/Blood Transfusion Reactions: Previous Problems w/ Anesthesia Additional Past Anesthesia/Blood Transfusion Reaction / Comment(s): When pt was a child and had her tonsils removed-"heart stopped." Past Psychological History: No Psychological Hx Reported Smoking Status: Current every day smoker Past Alcohol Use History: None Reported Past Drug Use History: None Reported - Past Family History Mother Family Medical History: Cancer Father Family Medical History: Cancer General Exam Limitations: no limitations General appearance: alert, in no apparent distress Head exam: Present: atraumatic, normocephalic, normal inspection Eye exam: Present: normal appearance, PERRL Pupils: Present: normal accommodation ENT exam: Present: normal exam, normal oropharynx, mucous membranes moist Neck exam: Present: normal inspection, full ROM Respiratory exam: Present: normal lung sounds bilaterally Cardiovascular Exam: Present: regular rate, normal rhythm, normal heart sounds GI/Abdominal exam: Present: soft, normal bowel sounds Extremities exam: Present: normal inspection, full ROM Back exam: Present: normal inspection, full ROM, tenderness (Tenderness and reproducibility of pain over the posterior left buttock over the sciatic nerve) Neurological exam: Present: alert, oriented X3, CN II-XII intact Psychiatric exam: Present: normal affect, normal mood Skin exam: Present: warm, dry Course Vital Signs 12/05/22 02:23 Temperature 97.5 F L Pulse Rate 92 Respiratory 18 Rate Blood Pressure 100/64 O2 Sat by Pulse 98 Oximetry Medical Decision Making - Medical Decision Making Was pt. sent in by a medical professional or institution (, EVERARDO, BRANCH COORDINATOR, urgent care, hospital, or usp...) When possible be specific @ -No Did you speak to anyone other than the patient for history (EMS, parent, family, police, friend...)? What history was obtained from this source @ -No Did you review nursing and triage notes (agree or disagree)? Why? @ -I reviewed and agree with nursing and triage notes Were old charts reviewed (outside hosp., previous admission, EMS record, old EKG, old radiological studies, urgent care reports/EKG's, usp records)? Report findings @ -No old charts were reviewed Differential Diagnosis (chest pain, altered mental status, abdominal pain women, abdominal pain men, vaginal bleeding, weakness, fever, dyspnea, syncope, headache, dizziness, GI bleed, back pain, seizure, CVA, palpatations, mental health)? @ -Chronic back pain, sciatica, pain seeking EKG interpreted by me (3pts min.). @ -None X-rays interpreted by me (1pt min.). @ -None done CT interpreted by me (1pt min.). @ -None done U/S interpreted by me (1pt. min.). @ -None done What testing was considered but not performed or refused? (CT, X-rays, U/S, labs)? Why? @ -X-rays and CT were considered however the patient had chronic lower back pain as well as pain in the sciatic region which would not be seen by any imaging available in the emergency department therefore no imaging was obtained this time. What meds were considered but not given or refused? Why? @ -None Did you discuss the management of the patient with other professionals (professionals i.e. EVERARDO Ruiz, BRANCH COORDINATOR, lab, RT, psych nurse, social sciences instructor, corporate lawyer, teacher, commanding officer homicide squad, leather case finisher)? Give summary @ -No Was smoking cessation discussed for >3mins.? @ -No Was critical care preformed (if so, how long)? @ -No Were there social determinants of health that impacted care today? How? (Homelessness, low income, unemployed, alcoholism, drug addiction, transportation, low edu. Level, literacy, decrease access to med. care, usp, rehab)? @ -No Was there de-escalation of care discussed even if they declined (Discuss DNR or withdrawal of care, Hospice)? DNR status @ -No What co-morbidities impacted this encounter? (DM, HTN, Smoking, COPD, CAD, Cancer, CVA, ARF, Chemo, Hep., AIDS, mental health diagnosis, sleep apnea, morbid obesity)? @ -Chronic lumbar back pain status post surgery Was patient admitted / discharged? Hospital course, mention meds given and route, prescriptions, significant lab abnormalities, going to OR and other pertinent info. @ -The patient was seen and evaluated in the emergency department. Physical exam, the patient was resting in bed without any acute distress. The patient did have distress when I left the room but was able to answer questions appropriately. Vital signs were stable. Due to the nature and reproducibility of pain, the patient was likely having sciatic nerve pain. The patient requested Dilaudid multiple times. The patient was given medications including Toradol, Norflex, prednisone as well as a lidocaine patch. On reevaluation, the patient stated that she denied of any improvement of the pain. I did agree to give the patient 1 tablet of [place] 10 while in the emergency department. The patient was given a prescription for Robaxin, naproxen and lidocaine patches. The patient was advised to follow-up with her primary care physician as well as surgeon for further pain control. The patient was agreeable to this and all her questions were answered. The patient was discharged home in stable condition. The patient was able to ambulate without any acute assistance prior to discharge. Undiagnosed new problem with uncertain prognosis? @ -No Drug Therapy requiring intensive monitoring for toxicity (Heparin, Nitro, Insulin, Cardizem)? @ -No Were any procedures done? @ -No Diagnosis/symptom? @ -Sciatica Acute, or Chronic, or Acute on Chronic? @ -Acute on chronic Uncomplicated (without systemic symptoms) or Complicated (systemic symptoms)? @ -Uncomplicated Side effects of treatment? @ -No Exacerbation, Progression, or Severe Exacerbation? @ -No Poses a threat to life or bodily function? How? (Chest pain, [place], [place], pneumonia, PE, COPD, DKA, ARF, appy, cholecystitis, CVA, Diverticulitis, Homicidal, Suicidal, threat to staff... and all critical care pts) @ -No Disposition Clinical Impression: Sciatica, Back pain Disposition: HOME SELF-CARE Condition: Stable Instructions (If sedation given, give patient instructions): Sciatica (ED), Chronic Back Pain (DC) Prescriptions: predniSONE [Deltasone] 40 mg PO DAILY #8 tab Naproxen [EC-Naproxen] 500 mg PO BID #30 tab Lidocaine 5% Patch [Lidoderm] 1 patch TOPICAL DAILY #10 patch methocarbamoL [Robaxin-750] 750 mg PO TID #30 tab Is patient prescribed a controlled substance at d/c from ED?: No Referrals: Bhavesh Langley MD [Primary Care Provider] - 1-2 days Paul Clark DO [Doctor of Osteopathic Medicine] - 12/11/22 Time of Disposition: 03:45
[2022-12-05] MEDS ORDERED: HYDROcodone/APAP 10-325MG 1 EACH TAB PO ONE (04:09)
[2022-12-05] MEDS ORDERED: LIDOCAINE 5% PATCH TOPICAL SCH (09:00)
== END 2022-12-05 04:21 | disposition home or self-care (01) ==
LOC: EC 02:21
DX: M54.40 Lumbago with sciatica, unspecified side (principal); F17.200 Nicotine dependence, unspecified, uncomplicated; Z88.8 Allergy status to other drugs, medicaments and biological substances
CPT/HCPCS: 99283; 96372 ×2; J2360; J1885; J7512; 96361; 96374; 96375; 96376

== ENCOUNTER → 2023-01-17 | Outpatient (CLI) | payer OTHER ==
--- NOTE | 2023-01-18 06:28 | MR ---
EXAMINATION TYPE: MR lumbar spine wo con DATE OF EXAM: 01/17/2023 COMPARISON: Prior MRI lumbar spine November 14, 2021. Outside lumbar spine x-ray November 22, 2022 HISTORY: Low back pain, radiculopathy. Postlaminectomy syndrome. Back pain and radiculopathy greater than 6 weeks. TECHNIQUE: Multiplanar, multisequence imaging of the lumbar spine is performed without IV contrast. FINDINGS: Sagittal images of the lumbar spine show vertebral body heights and alignment to remain sat isfactory. There is extensive artifact from bilateral posterior pedicular rods and screws running fro m L2 through the bilateral S2 levels. There is artifact from metallic disc material at L2-L3 through the L5-S1 levels. There is disc desiccation L1-L2 level otherwise vertebral body heights and disc sp chago heights are maintained above the surgical levels. The conus medullaris remains normal in position and signal ending at mid L1 level. The bone marrow signal intensity is within normal limits above a nd below the surgical levels. Axial images show T12-L1 level to remain within normal limits. Axial images at L1-L2 level show artifact from surgical change otherwise appear within normal limits and The major axial levels are significantly degraded by susceptibility artifact from extensive surgical change. Posterior decompression changes are identified. Small bony projection mildly effaces anterior thecal sac at superior L3 level sagittal image 7 otherwise spinal canal is fairly widely patent on s agittal images. Paraspinal muscle bulk is preserved. IMPRESSION: Extensive surgical changes as detailed above. Alignment is satisfactory.
== END | disposition home or self-care (01) ==
LOC: RADMRIMAIN 19:45
PROVIDERS: ATTEND Anesthesiology Pain Medicine
DX: M96.1 Postlaminectomy syndrome, not elsewhere classified (principal)
CPT/HCPCS: 72148

== ENCOUNTER 2023-03-03 22:41 | Emergency (ER) | payer OTHER ==
[2023-03-04 00:05] VITALS: TEMP 97.9
[2023-03-04] MEDS ORDERED: HYDROmorphone 0.5 MG/0.5 ML SYRINGE IM STA ×2 (02:21→03:10)
--- NOTE | 2023-03-04 02:38 | ED ---
General Adult HPI - General Chief complaint: Extremity Problem,Nontraumatic Stated complaint: lower back and left leg pain Time Seen by Provider: 03/04/23 02:18 Source: patient, RN notes reviewed Mode of arrival: ambulatory - History of Present Illness Initial comments: 53-year-old female with past medical history significant for low back pain presents the emergency department for low back pain and left leg pain. Patient reports having spinal surgery done by Dr. Medina's and in May 2022. She reports worsening pain ever since. She reports that she takes [place] tens at home with mild symptomatically relief. She denies any numbness, tingling, weakness in her extremity. She reports that her pain is just been unmanageable at home. Denies any recent trauma or injury. - Related Data Home Medications Medication Instructions Recorded Confirmed Acetaminophen Tab [Tylenol] 1,000 mg PO Q6HR PRN 06/27/22 11/20/22 Cetirizine HCl [Zyrtec] 10 mg PO DAILY 06/27/22 11/20/22 Omeprazole [PriLOSEC] 20 mg PO DAILY PRN 06/27/22 11/20/22 Sennosides/Docusate Sodium [Senna 1 tab PO BID PRN 06/27/22 11/20/22 Plus 8.6-50 mg Tablet] Fluticasone Nasal [place] [Flonase 1 spray NASAL DAILY 09/08/22 11/20/22 Nasal [place]] Previous Rx's Medication Instructions Recorded oxyCODONE HCL/ACETAMINOPHEN 1 each PO QID PRN 30 Days #120 tab 09/25/22 [Percocet 10-325 mg] oxyCODONE HCL/ACETAMINOPHEN 1 tab PO Q6HR PRN 30 Days #120 tab 09/25/22 [Percocet 10-325 mg] Naproxen Sodium [Naproxen Sodium 500 mg PO DAILY 30 Days #60 tab 11/20/22 ER] Lidocaine 5% Patch [Lidoderm] 1 patch TOPICAL DAILY #10 patch 12/05/22 Naproxen [EC-Naproxen] 500 mg PO BID #30 tab 12/05/22 methocarbamoL [Robaxin-750] 750 mg PO TID #30 tab 12/05/22 predniSONE [Deltasone] 40 mg PO DAILY #8 tab 12/05/22 Allergies Allergy/AdvReac Type Severity Reaction Status Date / Time succinylcholine Allergy Anaphylaxis Verified 12/05/22 02:23 morphine AdvReac Chest Pain Verified 03/04/23 00:05 Review of Systems ROS Statement: Those systems with pertinent positive or pertinent negative responses have been documented in the HPI. ROS Other: All systems not noted in ROS Statement are negative. Past Medical History Additional Past Medical History / Comment(s): Herniated discs, thyroid nodules. History of Any Multi-Drug Resistant Organisms: None Reported Past Surgical History: Back Surgery, Cholecystectomy, Orthopedic Surgery, Tonsillectomy, Tubal Ligation Additional Past Surgical History / Comment(s): Right hand nerve repair, L2 to pelvis decompression and fusion (06/13/22). Past Anesthesia/Blood Transfusion Reactions: Previous Problems w/ Anesthesia Additional Past Anesthesia/Blood Transfusion Reaction / Comment(s): When pt was a child and had her tonsils removed-"heart stopped." Past Psychological History: No Psychological Hx Reported Smoking Status: Current every day smoker Past Alcohol Use History: None Reported Past Drug Use History: None Reported - Past Family History Mother Family Medical History: Cancer Father Family Medical History: Cancer General Exam - General Exam Comments Initial Comments: General: Alert, in no acute distress Head: atraumatic normocephalic. Eyes PERRL, EOMI intact, mucous membranes moist Respiratory: Lungs clear to auscultation bilaterally Cardiovascular: Heart rate regular rate and rhythm Abdominal: Soft without guarding or rebound Extremities: Normal inspection with full range of motion and normal capillary refill Neuroogic: alert and oriented 3, CN II-XII intact, able to ambulate with steady gait Skin: warm dry and intact with normal color Course Vital Signs 03/04/23 00:01 Temperature 97.9 F Pulse Rate 82 Respiratory 16 Rate Blood Pressure 134/79 O2 Sat by Pulse 98 Oximetry - Reevaluation(s) Reevaluation #1: 03/04/23 patient was offered x-ray however she declined. Medical Decision Making - Medical Decision Making Was pt. sent in by a medical professional or institution (, PA, HIGHWAY CONSTRUCTION INSPECTOR, urgent care, hospital, or half-way...) When possible be specific @ -[No] Did you speak to anyone other than the patient for history (EMS, parent, family, police, friend...)? What history was obtained from this source @ -[No] Did you review nursing and triage notes (agree or disagree)? Why? @ -[I reviewed and agree with nursing and triage notes] Were old charts reviewed (outside hosp., previous admission, EMS record, old EKG, old radiological studies, urgent care reports/EKG's, half-way records)? Report findings @ -[No old charts were reviewed] Differential Diagnosis (chest pain, altered mental status, abdominal pain women, abdominal pain men, vaginal bleeding, weakness, fever, dyspnea, syncope, headache, dizziness, GI bleed, back pain, seizure, CVA, palpatations, mental health, musculoskeletal)? @ -[not applicable] EKG interpreted by me (3pts min.). @ -[As above] X-rays interpreted by me (1pt min.). @ -[None CT interpreted by me (1pt min.). @ -[None done] U/S interpreted by me (1pt. min.). @ -[None done] What testing was considered but not performed or refused? (CT, X-rays, U/S, labs)? Why? @ -[None] What meds were considered but not given or refused? Why? @ -[None] Did you discuss the management of the patient with other professionals (professionals i.e. , PA, HIGHWAY CONSTRUCTION INSPECTOR, lab, RT, psych nurse, director social, diet attendant, teacher, tactical deception plans officer, egg caser)? Give summary @ -[No] Was smoking cessation discussed for >3mins.? @ -[No] Was critical care preformed (if so, how long)? @ -[No] Were there social determinants of health that impacted care today? How? (Homelessness, low income, unemployed, alcoholism, drug addiction, transportation, low edu. Level, literacy, decrease access to med. care, snf, rehab)? @ -[No] Was there de-escalation of care discussed even if they declined (Discuss DNR or withdrawal of care, Hospice)? DNR status @ -[No] What co-morbidities impacted this encounter? (DM, HTN, Smoking, COPD, CAD, Cancer, CVA, ARF, Chemo, Hep., AIDS, mental health diagnosis, sleep apnea, morbid obesity)? @ -[None] Was patient admitted / discharged? Hospital course, mention meds given and route, prescriptions, significant lab abnormalities, going to OR and other pertinent info. @ --Discharged. 53 year old -old female who presents the emergency department with back pain. Patient had a thorough history and physical exam performed while in the ED. Physical exam is essentially unremarkable. Heart rate regular rate and rhythm, lungs clear to auscultation bilaterally, abdomen soft nontender. Patient was offered imaging however she declined as there is no recent new injury and her complaint is chronic and condition. Pt was given 1 mg of Dilaudid with symptomatic relief on the ED. I discussed the results in detail with the patient's parents verbalized understanding and all questions were addressed. Return precautions were did stress at length with recommended close follow-up with inspector final assembly conveyor line. Patient discharged in stable condition. Case discussed with Dr.Bayudan Ana who agrees with plan of care Undiagnosed new problem with uncertain prognosis? @ -[No] Drug Therapy requiring intensive monitoring for toxicity (Heparin, Nitro, Insulin, Cardizem)? @ -[No] Were any procedures done? @ -[No] Diagnosis/symptom? @ -low back pain Acute, or Chronic, or Acute on Chronic? @ -acute Uncomplicated (without systemic symptoms) or Complicated (systemic symptoms)? @ -uncomplicated Side effects of treatment? @ -[No] Exacerbation, Progression, or Severe Exacerbation? @ -[No] Poses a threat to life or bodily function? How? (Chest pain, [place], [place], pneumonia, PE, COPD, DKA, ARF, appy, cholecystitis, CVA, Diverticulitis, Homicidal, Suicidal, threat to staff... and all critical care pts) @ -low likelihood Disposition Clinical Impression: Back pain Disposition: HOME SELF-CARE Condition: Stable Instructions (If sedation given, give patient instructions): Acute Low Back Pain (ED) Additional Instructions: Please return to the nearest emergency department if symptoms worsen or persist Is patient prescribed a controlled substance at d/c from ED?: No Referrals: Bhavesh Langley MD [Primary Care Provider] - 1-2 days Paul Clark DO [Doctor of Osteopathic Medicine] - 1-2 days Time of Disposition: 03:11
[2023-03-04 03:29] VITALS: BP 116/52; PULSE 67; RESP 18
== END 2023-03-04 03:31 | disposition home or self-care (01) ==
LOC: EC 22:41
DX: M54.50 Low back pain, unspecified (principal); F17.200 Nicotine dependence, unspecified, uncomplicated; Z88.5 Allergy status to narcotic agent; Z88.4 Allergy status to anesthetic agent
CPT/HCPCS: 99283; 96372 ×2; J1170

== ENCOUNTER 2023-04-27 19:33 | Emergency (ER) | payer OTHER ==
[2023-04-27 19:41] VITALS: TEMP 98.2
[2023-04-27] MEDS ORDERED: KETOROLAC 15 MG/ML 1 ML VIAL IM STA (20:38)
[2023-04-27] MEDS ORDERED: LIDOCAINE 5% PATCH TOPICAL STA (20:39)
[2023-04-27] MEDS ORDERED: methylPREDNISolone SOD SUCCI 125 MG/2 ML VIAL IM ONE (20:39)
--- NOTE | 2023-04-27 20:40 | ED ---
General Adult HPI - General Chief complaint: Fall Stated complaint: left leg injury-fall Time Seen by Provider: 04/27/23 19:46 Source: patient, RN notes reviewed Mode of arrival: wheelchair Limitations: no limitations - History of Present Illness Initial comments: 53-year-old female presents to the emergency department for chief complaint of left-sided leg pain. She states that she is walking earlier today when her left ankle gave out causing her to pull her left sided hip and thigh muscles. She states that she did not fall to the floor. She did not hit her head or lose consciousness. She reports that he took a Percocet 10mg at home which did not help with the pain. She has a history of chronic pain and reports that she has plates in her back. Denies loss of bowel or bladder function, fever, saddle anesthesia. - Related Data Home Medications Medication Instructions Recorded Confirmed Acetaminophen Tab [Tylenol] 1,000 mg PO Q6HR PRN 06/27/22 11/20/22 Cetirizine HCl [Zyrtec] 10 mg PO DAILY 06/27/22 11/20/22 Omeprazole [PriLOSEC] 20 mg PO DAILY PRN 06/27/22 11/20/22 Sennosides/Docusate Sodium [Senna 1 tab PO BID PRN 06/27/22 11/20/22 Plus 8.6-50 mg Tablet] Fluticasone Nasal [place] [Flonase 1 spray NASAL DAILY 09/08/22 11/20/22 Nasal [place]] Previous Rx's Medication Instructions Recorded oxyCODONE HCL/ACETAMINOPHEN 1 each PO QID PRN 30 Days #120 tab 09/25/22 [Percocet 10-325 mg] oxyCODONE HCL/ACETAMINOPHEN 1 tab PO Q6HR PRN 30 Days #120 tab 09/25/22 [Percocet 10-325 mg] Naproxen Sodium [Naproxen Sodium 500 mg PO DAILY 30 Days #60 tab 11/20/22 ER] Lidocaine 5% Patch [Lidoderm] 1 patch TOPICAL DAILY #10 patch 12/05/22 Naproxen [EC-Naproxen] 500 mg PO BID #30 tab 12/05/22 methocarbamoL [Robaxin-750] 750 mg PO TID #30 tab 12/05/22 predniSONE [Deltasone] 40 mg PO DAILY #8 tab 12/05/22 Allergies Allergy/AdvReac Type Severity Reaction Status Date / Time succinylcholine Allergy Anaphylaxis Verified 04/27/23 19:41 morphine AdvReac Chest Pain Verified 04/27/23 19:41 Review of Systems ROS Statement: Those systems with pertinent positive or pertinent negative responses have been documented in the HPI. ROS Other: All systems not noted in ROS Statement are negative. Past Medical History Additional Past Medical History / Comment(s): Herniated discs, thyroid nodules. History of Any Multi-Drug Resistant Organisms: None Reported Past Surgical History: Back Surgery, Cholecystectomy, Orthopedic Surgery, Tonsillectomy, Tubal Ligation Additional Past Surgical History / Comment(s): Right hand nerve repair, L2 to pelvis decompression and fusion (06/13/22). Past Anesthesia/Blood Transfusion Reactions: Previous Problems w/ Anesthesia Additional Past Anesthesia/Blood Transfusion Reaction / Comment(s): When pt was a child and had her tonsils removed-"heart stopped." Past Psychological History: No Psychological Hx Reported Smoking Status: Current every day smoker Past Alcohol Use History: None Reported Past Drug Use History: None Reported - Past Family History Mother Family Medical History: Cancer Father Family Medical History: Cancer General Exam Limitations: no limitations General appearance: alert, in no apparent distress Head exam: Present: atraumatic, normocephalic, normal inspection Eye exam: Present: normal appearance, PERRL, EOMI. Absent: scleral icterus, conjunctival injection, periorbital swelling ENT exam: Present: normal exam, mucous membranes moist Neck exam: Present: normal inspection. Absent: tenderness, meningismus, lymphadenopathy Respiratory exam: Present: normal lung sounds bilaterally. Absent: respiratory distress, wheezes, rales, rhonchi, stridor Cardiovascular Exam: Present: regular rate, normal rhythm, normal heart sounds. Absent: systolic murmur, diastolic murmur, rubs, gallop, clicks GI/Abdominal exam: Present: soft, normal bowel sounds. Absent: distended, tenderness, guarding, rebound, rigid Extremities exam: Present: normal inspection, full ROM, normal capillary refill, other (DP and PT pulses 2+). Absent: tenderness, pedal edema, joint swelling, calf tenderness Back exam: Present: normal inspection. Absent: CVA tenderness (R), CVA tenderness (L), muscle spasm, paraspinal tenderness, vertebral tenderness Neurological exam: Present: alert, oriented X3 Psychiatric exam: Present: normal affect, normal mood Skin exam: Present: warm, dry, intact, normal color. Absent: rash Course Vital Signs 04/27/23 04/27/23 19:39 20:54 Temperature 98.2 F Pulse Rate 109 H 83 Respiratory 20 16 Rate Blood Pressure 102/61 134/63 O2 Sat by Pulse 98 98 Oximetry Medical Decision Making - Medical Decision Making Was pt. sent in by a medical professional or institution (, [facility], PARAMEDIC SUPERVISOR, urgent care, hospital, or care home...) When possible be specific @ -No Did you speak to anyone other than the patient for history (EMS, parent, family, police, friend...)? What history was obtained from this source @ -No Did you review nursing and triage notes (agree or disagree)? Why? @ -I reviewed and agree with nursing and triage notes Were old charts reviewed (outside hosp., previous admission, EMS record, old EKG, old radiological studies, urgent care reports/EKG's, care home records)? Report findings @ -Prior charts and medications for pain management reviewed. Differential Diagnosis (chest pain, altered mental status, abdominal pain women, abdominal pain men, vaginal bleeding, weakness, fever, dyspnea, syncope, headache, dizziness, GI bleed, back pain, seizure, CVA, palpatations, mental health, musculoskeletal)? @ -Differential Back Pain: Strain, zoster, cauda equina syndrome, epidural abscess, vertebral osteomyelitis, discitis, fracture, subluxation, disc herniation, DJD, spinal stenosis, dissection, AAA, pancreatitis, peptic ulcer disease, pyelonephritis, kidney stone, this is not meant to be an all-inclusive list. EKG interpreted by me (3pts min.). @ -none X-rays interpreted by me (1pt min.). @ -None done CT interpreted by me (1pt min.). @ -None done U/S interpreted by me (1pt. min.). @ -None done What testing was considered but not performed or refused? (CT, X-rays, U/S, labs)? Why? @ -None What meds were considered but not given or refused? Why? @ -None Did you discuss the management of the patient with other professionals (professionals i.e. , PA, PARAMEDIC SUPERVISOR, lab, RT, psych nurse, social service liaison, paper machine back tender, teacher, county records management officer, shoe caser)? Give summary @ -No Was smoking cessation discussed for >3mins.? @ -No Was critical care preformed (if so, how long)? @ -No Were there social determinants of health that impacted care today? How? (Homelessness, low income, unemployed, alcoholism, drug addiction, transportation, low edu. Level, literacy, decrease access to med. care, senior living, rehab)? @ -No Was there de-escalation of care discussed even if they declined (Discuss DNR or withdrawal of care, Hospice)? DNR status @ -No What co-morbidities impacted this encounter? (DM, HTN, Smoking, COPD, CAD, Cancer, CVA, ARF, Chemo, Hep., AIDS, mental health diagnosis, sleep apnea, morbid obesity)? @ -None Was patient admitted / discharged? Hospital course, mention meds given and route, prescriptions, significant lab abnormalities, going to OR and other pertinent info. @ -Discharge. Patient presented to emergency department chief complaint of left-sided leg pain as she states she pulled her leg when she twisted her ankle earlier today. She reports that she has been able to bear weight and move freely. Patient has a history of chronic pain and takes Percocet 10 mg at home. She reports that she took this couple hours prior to arriving to the emergency department and did not have any improvement. X-rays were considered but patient has appropriate strength and range of motion in her lower extremity and is able to bear weight well. She is also reporting back pain but is not having any red flag symptoms at this time including loss of bowel or bladder function, urinary retention, saddle anesthesia. Patient was requesting pain medication. Patient was given Toradol, Solu-Medrol, lidocaine patch. Patient discharged in stable condition. Case discussed with my attending, Dr. Waggoner Undiagnosed new problem with uncertain prognosis? @ -No Drug Therapy requiring intensive monitoring for toxicity (Heparin, Nitro, Insulin, Cardizem)? @ -No Were any procedures done? @ -No Diagnosis/symptom? @ -low back pain Acute, or Chronic, or Acute on Chronic? @ -acute Uncomplicated (without systemic symptoms) or Complicated (systemic symptoms)? @ -uncomplicated Side effects of treatment? @ -No Exacerbation, Progression, or Severe Exacerbation? @ -No Poses a threat to life or bodily function? How? (Chest pain, [place], [place], pneumonia, PE, COPD, DKA, ARF, appy, cholecystitis, CVA, Diverticulitis, Homicidal, Suicidal, threat to staff... and all critical care pts) @ -No Disposition Clinical Impression: Mechanical back pain Disposition: HOME SELF-CARE Condition: Stable Instructions (If sedation given, give patient instructions): Back Pain (ED) Additional Instructions: Please follow up with your mirror painter. Return to the emergency department for new or worsening symptoms. Is patient prescribed a controlled substance at d/c from ED?: No Referrals: Bhavesh Langley MD [Primary Care Provider] - 1-2 days Time of Disposition: 20:40
[2023-04-27 20:56] VITALS: BP 134/63; PULSE 83; RESP 16
== END 2023-04-27 20:55 | disposition home or self-care (01) ==
LOC: EC 19:33
DX: M54.9 Dorsalgia, unspecified (principal); F17.200 Nicotine dependence, unspecified, uncomplicated; Z88.6 Allergy status to analgesic agent; Z88.5 Allergy status to narcotic agent; X50.0XXA Overexertion from strenuous movement or load, initial encounter
CPT/HCPCS: 99284; 96372 ×2; J2930; J1885

== ENCOUNTER → 2023-05-30 | Outpatient (CLI) | payer OTHER ==
[2023-05-30 20:26] LABS: Thyroid Peroxidase Antibodies <9.0 U/mL (0.0-33.0)
== END | disposition home or self-care (01) ==
LOC: LABWHC1 13:51
PROVIDERS: ATTEND Student in an Organized Health Care Education/Training Program
DX: E04.9 Nontoxic goiter, unspecified (principal)
CPT/HCPCS: 36415; 84436; 84443; 84480; 86376; 86800

== ENCOUNTER → 2023-06-22 | Outpatient (CLI) | payer OTHER ==
[2023-06-22 16:02] LABS: Basophils % (A) 0 %; Eosinophils # (A) 0.6 k/uL (0-0.7); Eosinophils % (A) 7 %; HCT 51.5 % (34.0-46.0); HGB 16.3 gm/dL (11.4-16.0); Hypochromasia Slight; Lymphocytes # (A) 3.1 k/uL (1.0-4.8); Lymphocytes % (A) 35 %; MCH 31.5 pg (25.0-35.0); MCHC 31.6 g/dL (31.0-37.0); MCV 99.6 fL (80.0-100.0); Mean Platelet Volume 8.2; Monocytes # (A) 0.6 k/uL (0-1.0); Monocytes % (A) 6 %; Neutrophils # (A) 4.4 k/uL (1.3-7.7); Neutrophils % (A) 50 %; Platelet Count 322 k/uL (150-450); RBC 5.17 m/uL (3.80-5.40); RDW 13.5 % (11.5-15.5); WBC 8.9 k/uL (3.8-10.6)
[2023-06-22 21:21] LABS: ALT 17 U/L (8-44); AST 22 U/L (13-35); Albumin 4.1 d/dL (3.8-4.9); Albumin/Globulin Ratio 1.95 Ratio (1.60-3.17); Alkaline Phosphatase 105 U/L (41-126); BUN/Creat Ratio 8.57 Ratio (12.00-20.00); Calcium 9.7 mg/dL (8.7-10.3); Carbon Dioxide 24.6 mmol/L (21.6-31.8); Chloride 107 mmol/L (96-109); Chol/HDL Ratio 5.46 Ratio; Globulin 2.1 d/dL (1.6-3.3); Glucose 82 mg/dL (70-110); LDL Cholesterol,Calculated 156.8 mg/dL (0.0-131.0); Potassium 4.2 mmol/L (3.5-5.5); Sodium 145 mmol/L (135-145); Total Bilirubin 0.3 mg/dL (0.3-1.2); Total Protein 6.2 d/dL (6.2-8.2)
== END | disposition home or self-care (01) ==
LOC: LABWHC1 13:44
PROVIDERS: ATTEND Internal Medicine
DX: D72.829 Elevated white blood cell count, unspecified (principal); E55.9 Vitamin D deficiency, unspecified; K21.9 Gastro-esophageal reflux disease without esophagitis; M51.36 Other intervertebral disc degeneration, lumbar region; R73.9 Hyperglycemia, unspecified
CPT/HCPCS: 36415; 80053; 80061; 82306; 82607; 82746; 83036; 83735; 84165; 85025

== ENCOUNTER 2023-08-03 12:06 | Inpatient (IN) | payer OTHER ==
--- NOTE | 2023-08-03 12:40 | ED ---
General Adult HPI - General Source: patient Mode of arrival: ambulatory Limitations: no limitations <Bisi Sterling - Last Filed: 08/03/23 12:36> - General Source: RN notes reviewed <Nadine Mcbride - Last Filed: 08/03/23 16:59> - General Chief complaint: Recheck/Abnormal Lab/Rx Stated complaint: jaw pain Time Seen by Provider: 08/03/23 12:36 - History of Present Illness Initial comments: Patient is a 53-year-old female presented ER with chief complaint of right-sided jaw pain. Patient states she had an EGD yesterday and her symptoms have per sisted since. Patient denies any fevers, chills or other complaints. (Bisi Sterling) Quick note reviewed: This is a pleasant 53-year-old female with no significant past medical history who presents to the emergency department with a chief complaint of right-sided jaw pain. She noticed right-sided jaw pain and right lower facial droop that started yesterday after an EGD. She is complaining of accompanying slurred speech. She has not taken anything for her symptoms. She denies any fevers, cough, difficulty breathing, hematemesis. (Nadine Mcbride) - Related Data Home Medications Medication Instructions Recorded Confirmed Cetirizine HCl [Zyrtec] 10 mg PO DAILY 06/27/22 08/03/23 Omeprazole [PriLOSEC] 20 mg PO DAILY 06/27/22 08/03/23 Fluticasone Nasal [place] [Flonase 1 spray EA NOSTRIL BID 09/08/22 08/03/23 Nasal [place]] HYDROcodone/APAP 10-325MG [[place] 1 tab PO TID PRN 08/03/23 08/03/23 10-325] traMADol HCL [Ultram ER] 100 mg PO BID PRN 08/03/23 08/03/23 Allergies Allergy/AdvReac Type Severity Reaction Status Date / Time succinylcholine Allergy Anaphylaxis Verified 08/03/23 15:58 morphine AdvReac Chest Pain Verified 08/03/23 15:58 Review of Systems ROS Other: All systems not noted in ROS Statement are negative. <Bisi Sterling - Last Filed: 08/03/23 12:36> ROS Other: All systems not noted in ROS Statement are negative. <Nadine Mcbride - Last Filed: 08/03/23 16:59> ROS Statement: Those systems with pertinent positive or pertinent negative responses have been documented in the HPI. Past Medical History Additional Past Medical History / Comment(s): Herniated discs, thyroid nodules. History of Any Multi-Drug Resistant Organisms: None Reported Past Surgical History: Back Surgery, Cholecystectomy, Orthopedic Surgery, Tonsillectomy, Tubal Ligation Additional Past Surgical History / Comment(s): Right hand nerve repair, L2 to pelvis decompression and fusion (06/13/22). Past Anesthesia/Blood Transfusion Reactions: Previous Problems w/ Anesthesia Additional Past Anesthesia/Blood Transfusion Reaction / Comment(s): When pt was a child and had her tonsils removed-"heart stopped." Past Psychological History: No Psychological Hx Reported Smoking Status: Current every day smoker Past Alcohol Use History: None Reported Past Drug Use History: Marijuana - Past Family History Mother Family Medical History: Cancer Father Family Medical History: Cancer <Bisi Sterling - Last Filed: 08/03/23 12:36> General Exam Limitations: no limitations <Bisi Sterling - Last Filed: 08/03/23 12:36> Neurological exam: Present: alert, oriented X3, CN II-XII intact Expanded Speech: Present: fluid speech Cranial nerves: EOM's Intact: Normal, Gag Reflex: Normal, Tongue Deviation: Normal, Nystagmus: Normal, Facial Sensation: Abnormal Right (ddecreased), Facial Palsy with Forehead Movement: Normal Cerebellar function: Finger to Nose: Normal, Heel to Galeas: Normal, Romberg: Normal Upper motor neuron: Jack Neglect: Normal, Pronator Drift: Normal Sensory exam: Upper Extremity Light Touch: Normal, Lower Extremity Light Touch: Normal Motor strength exam: RUE: 5, LUE: 5, RLE: 5, LLE: 5 Eye Response: (4) open spontaneously Motor Response: (6) obeys commands Verbal Response: (5) oriented <Nadine Mcbride - Last Filed: 08/03/23 16:59> - General Exam Comments Initial Comments: Visual Physical Exam Vital signs reviewed General: Well-appearing, nontoxic, no acute distress. Head: Normocephalic, atraumatic Eyes: PERRLA, EOMI ENT: Airway patent Chest: Nonlabored breathing Skin: No visual rash, normal skin tone Neuro: Alert and oriented 3 Musculoskeletal: No gross abnormalities (Bisi Sterling) General: Alert, in no acute distress Head: atraumatic normocephalic. Eyes PERRL, EOMI intact, mucous membranes moist, right lower facial drooping, slurred speech Respiratory: Lungs clear to auscultation bilaterally Cardiovascular: Heart rate regular rate and rhythm Abdominal: Soft without guarding or rebound Extremities: Normal inspection with full range of motion and normal capillary refill Neuroogic: alert and oriented 3, CN II-XII intact, able to ambulate with steady gait Skin: warm dry and intact with normal color (Nadine Mcbride) Course <Nadine Mcbride - Last Filed: 08/03/23 16:59> Vital Signs 08/03/23 12:09 Temperature 97.8 F Pulse Rate 95 Respiratory 20 Rate Blood Pressure 129/70 O2 Sat by Pulse 99 Oximetry - Reevaluation(s) Reevaluation #1: 08/03/23 14:38 Dr. Fontana at bedside to discuss plan of care (Nadine Mcbride) Medical Decision Making <Bisi Sterling - Last Filed: 08/03/23 12:36> - Lab Data Result diagrams: 08/03/23 14:54 08/03/23 14:54 <Nadine Mcbride - Last Filed: 08/03/23 16:59> - Medical Decision Making I performed the quick note portion of the exam. Electronically signed by Biis Sterling PA-C (Bisi Sterling) Was pt. sent in by a medical professional or institution ([facility], POLYMERIZATION OVEN TENDER, urgent care, hospital, or alf...) When possible be specific @ -[No] Did you speak to anyone other than the patient for history (EMS, parent, family, police, friend...)? What history was obtained from this source @ -[No] Did you review nursing and triage notes (agree or disagree)? Why? @ -[I reviewed and agree with nursing and triage notes] Were old charts reviewed (outside hosp., previous admission, EMS record, old EKG, old radiological studies, urgent care reports/EKG's, alf records)? Report findings @ -[No old charts were reviewed] Differential Diagnosis (chest pain, altered mental status, abdominal pain women, abdominal pain men, vaginal bleeding, weakness, fever, dyspnea, syncope, headache, dizziness, GI bleed, back pain, seizure, CVA, palpatations, mental health, musculoskeletal)? @ -[not applicable] EKG interpreted by me (3pts min.). @ -[As above] X-rays interpreted by me (1pt min.). @ -[None done] CT interpreted by me (1pt min.). @ CT brain with and without contrast negative U/S interpreted by me (1pt. min.). @ -[None done] What testing was considered but not performed or refused? (CT, X-rays, U/S, labs)? Why? @ -[None] What meds were considered but not given or refused? Why? @ -[None] Did you discuss the management of the patient with other professionals ( professionals i.e. , PA, POLYMERIZATION OVEN TENDER, lab, RT, psych nurse, social secretary, sql report developer, teacher, special loan officer, case operator)? Give summary @ -[No] Was smoking cessation discussed for >3mins.? @ -[No] Was critical care preformed (if so, how long)? @ -[No] Were there social determinants of health that impacted care today? How? (Homelessness, low income, unemployed, alcoholism, drug addiction, t ransportation, low edu. Level, literacy, decrease access to med. care, intermediate, rehab)? @ -[No] Was there de-escalation of care discussed even if they declined (Discuss DNR or withdrawal of care, Hospice)? DNR status @ -[No] What co-morbidities impacted this encounter? (DM, HTN, Smoking, COPD, CAD, Cancer, CVA, ARF, Chemo, Hep., AIDS, mental health diagnosis, sleep apnea, morbid obesity)? @ -[None] Admission. This is a 53-year-old female who presents emergency Department with jaw pain. Patient had a thorough history and physical exam performed. Vital signs are stable. There is right-sided facial droop and slurred speech. NIH is 2. Dr. Fontana at bedside to evaluate the patient. Patient had laboratory studies and CT imaging which was unremarkable. Despite negative imaging studies patient right-sided facial numbness and states she is just persistent. It is my decision to admit the patient for further observation and consult to neurology and MRI. Case discussed with adam Dow who agrees and accepts the patient for further observation. Case discussed with Dr. Fontana, ED attending who agrees with plan of care Undiagnosed new problem with uncertain prognosis? @ -[No] Drug Therapy requiring intensive monitoring for toxicity (Heparin, Nitro, Ins ulin, Cardizem)? @ -[No] Were any procedures done? @ -[No] Diagnosis/symptom? @ -Dysarthria - Slurred Speech Acute, or Chronic, or Acute on Chronic? @ -Acute Uncomplicated (without systemic symptoms) or Complicated (systemic symptoms)? @ -Uncomplicated Side effects of treatment? @ -[No] Exacerbation, Progression, or Severe Exacerbation? @ -[No] Poses a threat to life or bodily function? How? (Chest pain, [place], [place], pneumonia, PE, COPD, DKA, ARF, appy, cholecystitis, CVA, Diverticulitis, Homicidal, Suicidal, threat to staff... and all critical care pts) @ -Low likelihood (Nadine Mcbride) - Lab Data Lab Results 08/03/23 08/03/23 08/03/23 Range/Units 14:54 14:54 14:54 WBC 10.1 (3.8-10.6) k/uL RBC 5.16 (3.80-5.40) m/uL Hgb 16.0 (11.4-16.0) gm/dL Hct 50.0 H (34.0-46.0) % MCV 96.9 (80.0-100.0) fL MCH 31.0 (25.0-35.0) pg MCHC 31.9 (31.0-37.0) g/dL RDW 13.7 (11.5-15.5) % Plt Count 326 (150-450) k/uL MPV 7.8 Neutrophils % 51 % Lymphocytes % 36 % Monocytes % 7 % Eosinophils % 5 % Basophils % 0 % Neutrophils # 5.1 (1.3-7.7) k/uL Lymphocytes # 3.6 (1.0-4.8) k/uL Monocytes # 0.7 (0-1.0) k/uL Eosinophils # 0.5 (0-0.7) k/uL Basophils # 0.0 (0-0.2) k/uL PT 10.0 (10.0-12.5) sec INR 0.9 (<1.2) APTT 23.9 (22.0-30.0) sec Sodium 138 (137-145) mmol/L Potassium 4.7 (3.5-5.1) mmol/L Chloride 103 (98-107) mmol/L Carbon Dioxide 28 (22-30) mmol/L Anion Gap 7 mmol/L BUN 13 (7-17) mg/dL Creatinine 0.62 (0.52-1.04) mg/dL Est GFR (CKD-EPI)AfAm >90 (>60 ml/min/1.73 sqM) Est GFR (CKD-EPI)NonAf >90 (>60 ml/min/1.73 sqM) Glucose 86 (74-99) mg/dL Calcium 9.9 (8.4-10.2) mg/dL Total Bilirubin 0.5 (0.2-1.3) mg/dL AST 22 (14-36) U/L ALT 17 (4-34) U/L Alkaline Phosphatase 96 (38-126) U/L Total Protein 6.9 (6.3-8.2) g/dL Albumin 4.3 (3.5-5.0) g/dL Disposition <Bisi Sterling - Last Filed: 08/03/23 12:36> Time of Disposition: 16:42 <Nadine Mcbride - Last Filed: 08/03/23 16:59> Clinical Impression: Dysarthria, Slurred speech, Facial droop Disposition: ADMITTED IP TO THIS HOSP Condition: Fair Referrals: Bhavesh Langley MD [Primary Care Provider] - 1-2 days
[2023-08-03] MEDS ORDERED: IBUPROFEN 800 MG TAB PO STA (13:25)
--- NOTE | 2023-08-03 13:37 | XR ---
EXAMINATION TYPE: XR chest 2V DATE OF EXAM: 08/03/2023 COMPARISON: NONE TECHNIQUE: PA and lateral views submitted. HISTORY: Chest discomfort FINDINGS: The lungs are clear and there is no pneumothorax, pleural effusion, or focal pneumonia. Heart size normal and no overt failure. Osseous structures demonstrate hypertrophic and degenerative changes of the spine. Mild hyperinflation correlate for COPD. Surgical changes suggested involving the vertebral , partially included in the [id number]. IMPRESSION: 1. No acute process.
--- NOTE | 2023-08-03 13:39 | XR ---
EXAMINATION TYPE: XR mandible complete DATE OF EXAM: 08/03/2023 COMPARISON: NONE HISTORY: Pain TECHNIQUE: 5 FINDINGS: Degenerative changes of the cervical spine. Mandibles intact. No acute fracture or dislocat ion IMPRESSION: No osseous abnormality.
--- NOTE | 2023-08-03 14:02 | CT ---
EXAMINATION TYPE: CT brain wo con DATE OF EXAM: 08/03/2023 COMPARISON: None HISTORY: JAW PAIN AFTER EGD SCOPE YESTERDAY. CT DLP: 1316.4 mGycm Automated exposure control for dose reduction was used. FINDINGS: Ventricles and basal cistern sulci overlying next using stage. No acute hemorrhage or mass effect. No midline shift. Tiny hypodensity within the left basal ganglia too small to characterize. Nasal septal deviation. Sinuses are clear. Orbits are symmetric. Calvarium intact. Craniocervical adriana ction is maintained. IMPRESSION: NO ACUTE INTRACRANIAL PROCESS
--- NOTE | 2023-08-03 14:14 | CT ---
EXAMINATION TYPE: CT facial bones wo con DATE OF EXAM: 08/03/2023 COMPARISON: None HISTORY: JAW PAIN AFTER EGD SCOPE YESTERDAY. CT DLP: 1316.4 mGycm Automated exposure control for dose reduction was used. TECHNIQUE: CT scan of the sinuses is performed without contrast, axial images are obtained, coronal r eformatted images are also reviewed. FINDINGS: The paranasal sinuses including the frontal, ethmoid, sphenoid, and maxillary sinuses bila terally are well-aerated without abnormal opacification. The ostiomeatal complex is patent bilateral ly on the coronal images. Visualized portion of mastoid air cells show no abnormal opacification. The globes are intact bilate rally. Nasal septal deviation. Mandible intact. TMJ arthropathy in the left IMPRESSION: 1. No acute process. 2. Left-sided TMJ arthropathy.
[2023-08-03] MEDS ORDERED: SODIUM CHLORIDE 0.9% 1,000 ML IV ONE (14:37)
[2023-08-03 15:16] LABS: Basophils % (A) 0 %; Eosinophils # (A) 0.5 k/uL (0-0.7); Eosinophils % (A) 5 %; Lymphocytes # (A) 3.6 k/uL (1.0-4.8); Lymphocytes % (A) 36 %; MCHC 31.9 g/dL (31.0-37.0); MCV 96.9 fL (80.0-100.0); Mean Platelet Volume 7.8; Monocytes # (A) 0.7 k/uL (0-1.0); Monocytes % (A) 7 %; Neutrophils # (A) 5.1 k/uL (1.3-7.7); Neutrophils % (A) 51 %; Platelet Count 326 k/uL (150-450); RBC 5.16 m/uL (3.80-5.40); RDW 13.7 % (11.5-15.5); WBC 10.1 k/uL (3.8-10.6)
[2023-08-03 15:21] LABS: ALT 17 U/L (4-34); AST 22 U/L (14-36); African American GFR (CKD) >90 (>60 ml/min/1.73 sqM); Albumin 4.3 g/dL (3.5-5.0); Alkaline Phosphatase 96 U/L (38-126); Anion Gap 7 mmol/L; Blood Urea Nitrogen 13 mg/dL (7-17); Calcium 9.9 mg/dL (8.4-10.2); Carbon Dioxide 28 mmol/L (22-30); Chloride 103 mmol/L (98-107); Glucose 86 mg/dL (74-99); INR 0.9 (<1.2); Non-African American GFR(CKD) >90 (>60 ml/min/1.73 sqM); Partial Thromboplastin Time 23.9 sec (22.0-30.0); Potassium 4.7 mmol/L (3.5-5.1); Sodium 138 mmol/L (137-145); Total Bilirubin 0.5 mg/dL (0.2-1.3); Total Protein 6.9 g/dL (6.3-8.2)
[2023-08-03] MEDS ORDERED: HYDROmorphone 0.5 MG/0.5 ML SYRINGE IVP STA (15:43)
--- NOTE | 2023-08-03 15:57 | CT ---
EXAMINATION TYPE: CT angio head neck CT DLP: 563.3 mGycm, Automated exposure control for dose reduction was used. DATE OF EXAM: 08/03/2023 3:48 PM COMPARISON: CT brain 08/03/2023. CLINICAL INDICATION:Female, 53 years old with history of facial numbness; PHH, Facial numbness TECHNIQUE: Axially acquired helical CT angiogram of the head and neck was obtained with contrast. Axi al images are supplemented with 3D reconstructions which [facility] NASCET criteria used. Contrast used:65 mL of Isovue 370 with IV Contrast, Oral contrast used: None. FINDINGS: CTA HEAD: No evidence of acute intracranial hemorrhage, mass effect, or midline shift. The ventricles, sulci, a nd cisterns are unremarkable. The visualized portions of the internal carotid arteries, middle cerebral arteries, anterior cerebral arteries, and posterior cerebral arteries are patent. The basilar and vertebral arteries are patent. CTA NECK: Right Carotid System: The common carotid artery and external carotid artery are patent. The carotid bifurcation demonstrate s no evidence of hemodynamically significant stenosis. The remaining portions of the internal carotid artery demonstrate normal size without significant narrowing. Left Carotid System: The common carotid artery and external carotid artery are patent. The carotid bifurcation demonstrate s no evidence of hemodynamically significant stenosis. The remaining portions of the internal carotid artery demonstrate normal size without significant narrowing. Vertebral arteries are patent without evidence hemodynamically significant stenosis. There is a three-vessel aortic arch. The origins of the great vessels are patent. No evidence of hemo dynamically significant stenosis. Heterogenous thyroid gland with nodules seen bilaterally. IMPRESSION: 1. No evidence of dissection of the cervical internal carotid arteries or vertebral arteries or any e vidence of significant stenosis at the carotid bifurcations. 2. No evidence of intracranial high-grade stenosis or intracranial aneurysm.
[2023-08-03] MEDS ORDERED: ASPIRIN 325 MG TAB PO STA ×2 (16:38→17:09)
[2023-08-03] MEDS ORDERED: SODIUM CHLORIDE 0.9% 1,000 ML IV SCH (17:00)
[2023-08-03] MEDS ORDERED: NALOXONE 0.4 MG/ML 1 ML VIAL IV PRN (17:00)
[2023-08-03] MEDS ORDERED: HYDROcodone/APAP 5-325MG 1 EACH TAB PO STA (19:28)
[2023-08-03] MEDS ORDERED: HYDROcodone/APAP 5-325MG 1 EACH TAB PO PRN (19:28)
[2023-08-03] MEDS: HEPARIN SODIUM,PORCINE 5,000 UNIT/ML 1 ML VIAL SQ SCH (20:31)
[2023-08-03] MEDS: FAMOTIDINE 20 MG/2 ML VIAL IV SCH (20:32)
[2023-08-03] MEDS: FLUTICASONE 50MCG/SPRAY NASAL 16GM EA NOSTRIL SCH (22:28)
[2023-08-03 23:16] VITALS: RESP 16
[2023-08-04] MEDS ORDERED: HYDROcodone/APAP 5-325MG 1 EACH TAB PO STA (00:16)
[2023-08-04] MEDS: NICOTINE 21MG/24HR PATCH TRANSDERM SCH ×2 (00:33→08:04)
[2023-08-04] MEDS ORDERED: HYDROcodone/APAP 10-325MG 1 EACH TAB PO PRN (07:00)
[2023-08-04] MEDS: FAMOTIDINE 20 MG/2 ML VIAL IV SCH (08:03)
[2023-08-04] MEDS: HEPARIN SODIUM,PORCINE 5,000 UNIT/ML 1 ML VIAL SQ SCH (08:04)
[2023-08-04] MEDS ORDERED: traMADol 50 MG TAB PO PRN (08:52)
[2023-08-04] MEDS ORDERED: ONDANSETRON 4 MG/2 ML VIAL IVP PRN (08:54)
[2023-08-04] MEDS ORDERED: ACETAMINOPHEN TAB 325 MG TAB PO PRN (08:54)
[2023-08-04] MEDS ORDERED: PANTOPRAZOLE 40 MG TABLET PO SCH (09:00)
[2023-08-04] MEDS ORDERED: LORATADINE 10 MG TAB PO SCH (09:00)
[2023-08-04] MEDS ORDERED: PARoxetine 10 MG TAB PO SCH (09:00)
[2023-08-04] MEDS ORDERED: ASPIRIN 81 MG PO SCH (09:00)
[2023-08-04] MEDS: FLUTICASONE 50MCG/SPRAY NASAL 16GM EA NOSTRIL SCH (09:08)
[2023-08-04 09:24] VITALS: BP 100/63; PULSE 77; TEMP 97.8
--- NOTE | 2023-08-04 13:21 | P.HPIM ---
History of Present Illness H&P Date: 08/04/23 Chief Complaint: Slurred speech * 53-year-old lady with past medical history significant for degenerative disease of lumbar spine, chronic low back pain presents to the emergency department with right-sided jaw pain that started yesterday. Patient had EGD completed yesterday after which she started having persistent symptoms. Patient denied any acute medical history otherwise except for degenerative joint disease. Upon admission patient was noted to have right-sided facial droop and right-sided jaw pain. This was accompanied by slurred speech as well * Patient denied any associated symptoms like fever, chills, chest pain, blurred vision, shortness of breath * Workup initiated in ER including a CT head, CT angina head and neck was negative for acute intracranial process or acute large visual occlusion * Patient had CT face completed which was negative for acute process left-sided TMJ arthroplasty was noted * Blood work up to include hepatology showed WBC within normal limits platelet count within normal limits PT/INR within normal limits * Serum chemistry was essentially negative * Chart was reviewed and I was on the way to evaluate the patient however she already left AGAINST MEDICAL ADVICE REVIEW OF SYSTEMS: Left AGAINST MEDICAL ADVICE PHYSICAL EXAMINATION: Left AGAINST MEDICAL ADVICE Past Medical History Additional Past Medical History / Comment(s): Herniated discs, thyroid nodules. History of Any Multi-Drug Resistant Organisms: None Reported Past Surgical History: Back Surgery, Cholecystectomy, Orthopedic Surgery, Tonsillectomy, Tubal Ligation Additional Past Surgical History / Comment(s): Right hand nerve repair, L2 to pelvis decompression and fusion (06/13/22). Past Anesthesia/Blood Transfusion Reactions: Previous Problems w/ Anesthesia Additional Past Anesthesia/Blood Transfusion Reaction / Comment(s): When pt was a child and had her tonsils removed-"heart stopped." Past Psychological History: No Psychological Hx Reported Smoking Status: Current every day smoker Past Alcohol Use History: None Reported Additional Past Alcohol Use History / Comment(s): Cutting back her smoking and trying to quit, currently smokes 4 cigarettes daily. Past Drug Use History: Marijuana Additional Drug Use History / Comment(s): Hx "edibles" occasionally for pain, none now. - Past Family History Mother Family Medical History: Cancer Father Family Medical History: Cancer Medications and Allergies Home Medications Medication Instructions Recorded Confirmed Type Cetirizine HCl [Zyrtec] 10 mg PO DAILY 06/27/22 08/03/23 History Omeprazole [PriLOSEC] 20 mg PO DAILY 06/27/22 08/03/23 History Fluticasone Nasal [place] [Flonase 1 spray EA NOSTRIL BID 09/08/22 08/03/23 History Nasal [place]] HYDROcodone/APAP 10-325MG [[place] 1 tab PO TID PRN 08/03/23 08/03/23 History 10-325] traMADol HCL [Ultram ER] 100 mg PO BID PRN 08/03/23 08/03/23 History Allergies Allergy/AdvReac Type Severity Reaction Status Date / Time succinylcholine Allergy Anaphylaxis Verified 08/03/23 15:58 morphine AdvReac Chest Pain Verified 08/03/23 15:58 Physical Exam Vitals: Vital Signs Temp Pulse Pulse Resp BP BP Pulse Ox 08/04/23 02:00 98.5 F 55 L 16 95/58 96 08/03/23 22:00 98.7 F 77 16 114/58 100 08/03/23 20:30 98.0 F 69 18 110/58 96 08/03/23 17:09 98.2 F 64 18 100/65 98 08/03/23 12:09 97.8 F 95 20 129/70 99 Intake and Output 08/03/23 08/04/23 08/04/23 22:59 06:59 14:59 Other: # Voids 3 Weight 95.254 kg Results CBC & Chem 7: 08/03/23 14:54 08/03/23 14:54 Labs: Abnormal Lab Results - Last 24 Hours (Table) 08/03/23 Range/Units 14:54 Hct 50.0 H (34.0-46.0) % Thrombosis Risk Factor Assmnt - DVT/VTE Prophylaxis DVT/VTE Prophylaxis: Mechanical Prophylaxis ordered - Choose All That Apply Any of the Below Risk Factors Present?: Yes Each Factor Represents 1 point: Age 41-60 years Thrombosis Risk Factor Assessment Total Risk Factor Score: 1 Thrombosis Risk Factor Assessment Level: Low Risk Assessment and Plan Assessment: Assessment and plan Right-sided facial droop/slurred speech rule out CVA Chronic pain with degenerative disease of lumbar spine Gastroesophageal reflux disease * In regards to right-sided facial droop/slurred speech, CT head CT angina head and neck obtained that's negative, continue patient on neuro checks/continue aspirin, neurology consulted * In regards to chronic pain/degenerative disease of lumbar spine continue pain control as needed [place] and IV Dilaudid ordered * In regards to gastroesophageal reflux disease continue omeprazole * CODE STATUS is full code * Left AGAINST MEDICAL ADVICE
--- NOTE | 2023-08-04 13:22 | P.DS ---
Providers Date of admission: 08/03/23 17:00 Expected date of discharge: 08/04/23 Attending physician: Bravo Paredes MD Consults: 08/03/23 17:00 Consult Physician Routine Consulting Provider: Rivera Forbes Consult Reason/Comments: slurred speech Do you want consulting provider notified?: Yes Primary care physician: Bhavesh Langley MD Hospital Course: * 53-year-old lady with past medical history significant for degenerative disease of lumbar spine, chronic low back pain presents to the emergency department with right-sided jaw pain that started yesterday. Patient had EGD completed yesterday after which she started having persistent symptoms. Patient denied any acute medical history otherwise except for degenerative joint disease. Upon admission patient was noted to have right-sided facial droop and right-sided jaw pain. This was accompanied by slurred speech as well * Patient denied any associated symptoms like fever, chills, chest pain, blurred vision, shortness of breath * Workup initiated in ER including a CT head, CT angina head and neck was negative for acute intracranial process or acute large visual occlusion * Patient had CT face completed which was negative for acute process left-sided TMJ arthroplasty was noted * Blood work up to include hepatology showed WBC within normal limits platelet count within normal limits PT/INR within normal limits * Serum chemistry was essentially negative * Chart was reviewed and I was on the way to evaluate the patient however she already left AGAINST MEDICAL ADVICE * REVIEW OF SYSTEMS: Left AGAINST MEDICAL ADVICE * PHYSICAL EXAMINATION: Left AGAINST MEDICAL ADVICE Assessment: Assessment and plan Right-sided facial droop/slurred speech rule out CVA Chronic pain with degenerative disease of lumbar spine Gastroesophageal reflux disease * In regards to right-sided facial droop/slurred speech, CT head CT angina head and neck obtained that's negative, continue patient on neuro checks/continue aspirin, neurology consulted * In regards to chronic pain/degenerative disease of lumbar spine continue pain control as needed [place] and IV Dilaudid ordered * In regards to gastroesophageal reflux disease continue omeprazole * CODE STATUS is full code * Left AGAINST MEDICAL ADVICE Patient Condition at Discharge: Undetermined Plan - Discharge Summary Discharge Rx Participant: No New Discharge Prescriptions: No Action Fluticasone Nasal [place] [Flonase Nasal [place]] 1 spray EA NOSTRIL BID HYDROcodone/APAP 10-325MG [[place] 10-325] 1 tab PO TID PRN PRN Reason: Pain Omeprazole [PriLOSEC] 20 mg PO DAILY Cetirizine HCl [Zyrtec] 10 mg PO DAILY traMADol HCL [Ultram ER] 100 mg PO BID PRN PRN Reason: Pain Discharge Medication List Cetirizine HCl [Zyrtec] 10 mg PO DAILY 06/27/22 [History] Omeprazole [PriLOSEC] 20 mg PO DAILY 06/27/22 [History] Fluticasone Nasal [place] [Flonase Nasal [place]] 1 spray EA NOSTRIL BID 09/08/22 [History] HYDROcodone/APAP 10-325MG [[place] 10-325] 1 tab PO TID PRN 08/03/23 [History] traMADol HCL [Ultram ER] 100 mg PO BID PRN 08/03/23 [History] Follow up Appointment(s)/Referral(s): Bhavesh Langley MD [Primary Care Provider] - 1-2 days Discharge Disposition: LEFT AGAINST MEDICAL ADVICE
[2023-08-04] MEDS ORDERED: FAMOTIDINE 20 MG TAB PO SCH (21:00)
== END 2023-08-04 11:20 | disposition left against medical advice (07) | DRG 45 ==
LOC: EC 12:06 → 4SSUR 17:00
PROVIDERS: ADMIT Internal Medicine; ATTEND Internal Medicine
DX: I63.9 Cerebral infarction, unspecified (principal); R29.810 Facial weakness; R47.81 Slurred speech; G89.29 Other chronic pain; F17.210 Nicotine dependence, cigarettes, uncomplicated; K21.9 Gastro-esophageal reflux disease without esophagitis; Z28.311 Partially vaccinated for COVID-19; Z28.21 Immunization not carried out because of patient refusal; Z88.5 Allergy status to narcotic agent; M19.90 Unspecified osteoarthritis, unspecified site; R29.702 NIHSS score 2; Z53.29 Procedure and treatment not carried out because of patient's decision for other reasons; E04.2 Nontoxic multinodular goiter
CPT/HCPCS: 36415; 70110; 70450; 70486; 70496; 70498; 71046; 80053; 85025; 85610; 85730; 96361; 96372; 96374; 96375; 99285

== ENCOUNTER 2023-11-12 17:02 | Emergency (ER) | payer OTHER ==
[2023-11-12 17:08] VITALS: RESP 18
--- NOTE | 2023-11-12 18:16 | ED ---
General Adult HPI - General Chief complaint: Back Pain/Injury Stated complaint: Back Pain Time Seen by Provider: 11/12/23 17:08 Source: patient, RN notes reviewed Mode of arrival: ambulatory Limitations: no limitations - History of Present Illness Initial comments: 53-year-old female presents to the emergency department for evaluation of back pain. She states this has been going on for 2 weeks. She reports that at that time she bent over to shrimp picker a can and when she stood up noticed a pop. She does report a history of spinal surgery performed by Dr. Clark. She states that this was preformed about 14 months ago. She states that she was on Suboxone but stopped taking it about 1 week ago. Denies loss of bowel or bladder function, urinary retention, saddle anesthesia. Denies any fever, chills. - Related Data Home Medications Medication Instructions Recorded Confirmed Cetirizine HCl [Zyrtec] 10 mg PO DAILY 06/27/22 08/03/23 Omeprazole [PriLOSEC] 20 mg PO DAILY 06/27/22 08/03/23 Fluticasone Nasal [place] [Flonase 1 spray EA NOSTRIL BID 09/08/22 08/03/23 Nasal [place]] HYDROcodone/APAP 10-325MG [[place] 1 tab PO TID PRN 08/03/23 08/03/23 10-325] traMADol HCL [Ultram ER] 100 mg PO BID PRN 08/03/23 08/03/23 Allergies Allergy/AdvReac Type Severity Reaction Status Date / Time succinylcholine Allergy Anaphylaxis Verified 11/12/23 17:07 morphine AdvReac Chest Pain Verified 11/12/23 17:07 Review of Systems ROS Statement: Those systems with pertinent positive or pertinent negative responses have been documented in the HPI. ROS Other: All systems not noted in ROS Statement are negative. Past Medical History Additional Past Medical History / Comment(s): Herniated discs, thyroid nodules. History of Any Multi-Drug Resistant Organisms: None Reported Past Surgical History: Back Surgery, Cholecystectomy, Orthopedic Surgery, Tonsillectomy, Tubal Ligation Additional Past Surgical History / Comment(s): Right hand nerve repair, L2 to pelvis decompression and fusion (06/13/22). Past Anesthesia/Blood Transfusion Reactions: Previous Problems w/ Anesthesia Additional Past Anesthesia/Blood Transfusion Reaction / Comment(s): When pt was a child and had her tonsils removed-"heart stopped." Past Psychological History: No Psychological Hx Reported Smoking Status: Current every day smoker Past Alcohol Use History: None Reported Past Drug Use History: Marijuana - Past Family History Mother Family Medical History: Cancer Father Family Medical History: Cancer General Exam Limitations: no limitations General appearance: alert, in no apparent distress Head exam: Present: atraumatic, normocephalic, normal inspection Eye exam: Present: normal appearance, PERRL, EOMI. Absent: scleral icterus, conjunctival injection, periorbital swelling ENT exam: Present: normal exam, mucous membranes moist Neck exam: Present: normal inspection. Absent: tenderness, meningismus, ly mphadenopathy Respiratory exam: Present: normal lung sounds bilaterally. Absent: respiratory distress, wheezes, rales, rhonchi, stridor Cardiovascular Exam: Present: regular rate, normal rhythm, normal heart sounds. Absent: systolic murmur, diastolic murmur, rubs, gallop, clicks GI/Abdominal exam: Present: soft, normal bowel sounds. Absent: distended, tenderness, guarding, rebound, rigid Extremities exam: Present: normal inspection, full ROM, normal capillary refill. Absent: tenderness, pedal edema, joint swelling, calf tenderness Back exam: Present: normal inspection, full ROM. Absent: tenderness, CVA tenderness (R), CVA tenderness (L) Neurological exam: Present: alert, oriented X3 Psychiatric exam: Present: normal affect, normal mood Skin exam: Present: warm, dry, intact, normal color. Absent: rash Course Vital Signs 11/12/23 11/12/23 11/12/23 17:03 18:43 19:41 Temperature 97.9 F 98.4 F Pulse Rate 80 73 69 Respiratory 18 18 18 Rate Blood Pressure 121/73 98/64 117/62 O2 Sat by Pulse 97 96 96 Oximetry Medical Decision Making - Medical Decision Making Was pt. sent in by a medical professional or institution (, PA, WAREHOUSE PRICING AND INVENTORY CLERK, urgent care, hospital, or detention...) When possible be specific @ -No Did you speak to anyone other than the patient for history (EMS, parent, family, police, friend...)? What history was obtained from this source @ -No Did you review nursing and triage notes (agree or disagree)? Why? @ -I reviewed and agree with nursing and triage notes Were old charts reviewed (outside hosp., previous admission, EMS record, old EKG, old radiological studies, urgent care reports/EKG's, detention records)? Report findings @ -No old charts were reviewed Differential Diagnosis (chest pain, altered mental status, abdominal pain women, abdominal pain men, vaginal bleeding, weakness, fever, dyspnea, syncope, headache, dizziness, GI bleed, back pain, seizure, CVA, palpatations, mental health, musculoskeletal)? @ -Differential Back Pain: Strain, zoster, cauda equina syndrome, epidural abscess, vertebral osteomyelitis, discitis, fracture, subluxation, disc herniation, DJD, spinal stenosis, dissection, AAA, pancreatitis, peptic ulcer disease, pyelonephritis, kidney stone, this is not meant to be an all-inclusive list. EKG interpreted by me (3pts min.). @ -None X-rays interpreted by me (1pt min.). @ -X-ray lumbar spine shows postsurgical changes with laminectomy and fusion, no interval change CT interpreted by me (1pt min.). @ -None done U/S interpreted by me (1pt. min.). @ -None done What testing was considered but not performed or refused? (CT, X-rays, U/S, labs)? Why? @ -None What meds were considered but not given or refused? Why? @ -None Did you discuss the management of the patient with other professionals (professionals i.e. , PA, WAREHOUSE PRICING AND INVENTORY CLERK, lab, RT, psych nurse, social service agency director, criminal justice lawyer, teacher, fire control officer, counter caser)? Give summary @ -No Was smoking cessation discussed for >3mins.? @ -No Was critical care preformed (if so, how long)? @ -No Were there social determinants of health that impacted care today? How? (Homelessness, low income, unemployed, alcoholism, drug addiction, transportation, low edu. Level, literacy, decrease access to med. care, correction, rehab)? @ -No Was there de-escalation of care discussed even if they declined (Discuss DNR or withdrawal of care, Hospice)? DNR status @ -No What co-morbidities impacted this encounter? (DM, HTN, Smoking, COPD, CAD, Cancer, CVA, ARF, Chemo, Hep., AIDS, mental health diagnosis, sleep apnea, morbid obesity)? @ -None Was patient admitted / discharged? Hospital course, mention meds given and route, prescriptions, significant lab abnormalities, going to OR and other pertinent info. @ -Discharged. Patient presented to the emergency department for evaluation of back pain. She has a history of chronic back pain and has had laminectomy and fusion at multiple levels in the lumbar spine. She follows with Dr. Clark for this. She is not having any red flag symptoms at this time. X-rays obtained which show no acute abnormality. Patient provided lidocaine patch and Toradol in the emergency department for pain control. Patient advised to follow-up with her orthopedic spine surgeon. Patient understanding agreeable with discharge plan. Patient stable at time of discharge. Case discussed with Dr. Dickinson. Undiagnosed new problem with uncertain prognosis? @ -No Drug Therapy requiring intensive monitoring for toxicity (Heparin, Nitro, Insulin, Cardizem)? @ -No Were any procedures done? @ -No Diagnosis/symptom? @ -Back pain Acute, or Chronic, or Acute on Chronic? @ -Acute Uncomplicated (without systemic symptoms) or Complicated (systemic symptoms)? @ -Uncomplicated Side effects of treatment? @ -No Exacerbation, Progression, or Severe Exacerbation? @ -No Poses a threat to life or bodily function? How? (Chest pain, [place], [place], pneumonia, PE, COPD, DKA, ARF, appy, cholecystitis, CVA, Diverticulitis, Homicidal, Suicidal, threat to staff... and all critical care pts) @ -No Disposition Clinical Impression: Mechanical back pain Disposition: HOME SELF-CARE Condition: Stable Instructions (If sedation given, give patient instructions): Acute Low Back Pain (ED) Additional Instructions: Please follow up with Dr. Clark. Return to the emergency department for new or worsening symptoms. Is patient prescribed a controlled substance at d/c from ED?: No Referrals: Bhavesh Langley DO [Primary Care Provider] - 1-2 days
[2023-11-12] MEDS: KETOROLAC 15 MG/ML 1 ML VIAL IM STA (18:39)
[2023-11-12] MEDS: LIDOCAINE 4% PATCH TOPICAL ONE (18:40)
[2023-11-12 19:00] VITALS: TEMP 98.4
--- NOTE | 2023-11-12 19:03 | XR ---
Lumbar spine. HISTORY: Back pain COMPARISON: 11/15/2022. TECHNIQUE: 3 views lumbar spine were obtained FINDINGS: There is extensive laminectomy and posterior metallic and interdisc fusion from L2 through S1. There is mild degenerative narrowing of the L1-2 disc is stable. The lumbar vertebral segments are normal in height and alignment there is no fracture or subluxation. There has been no interval change compared to previous. IMPRESSION: Postsurgical changes of laminectomy and fusion as described above. There is no interval change.
[2023-11-12] MEDS: ACET/COD 300 MG/30 MG STARTER PACK 6 TAB BTL PO STA (19:39)
[2023-11-12 19:54] VITALS: BP 117/62; PULSE 69
== END 2023-11-12 20:36 | disposition home or self-care (01) ==
LOC: EC 17:02
DX: M54.9 Dorsalgia, unspecified (principal); F17.200 Nicotine dependence, unspecified, uncomplicated; F12.90 Cannabis use, unspecified, uncomplicated; Z88.5 Allergy status to narcotic agent; Z88.8 Allergy status to other drugs, medicaments and biological substances
CPT/HCPCS: 99284; 72100; 96372; J1885

== ENCOUNTER → 2023-11-29 | Outpatient (CLI) | payer OTHER ==
--- NOTE | 2023-12-03 10:38 | MM ---
Reason for Exam: Screening (asymptomatic). Last mammogram was performed 2 year(s) and 1 month(s) ago. Patient History: Menarche at age 17. First Full-Term at age 27. Postmenopausal. Patient used Hormonal Contraceptives for 2 years. Risk Values: Darshana 5 year model risk: 1.1%. NCI Lifetime model risk: 8.8%. Prior Study Comparison: 11/14/2021 Bilateral Screening Mammogram, [facility]. Tissue Density: The breasts are heterogeneously dense, which may obscure small masses. Findings: Analyzed By CAD. There is no suspicious group of microcalcifications or new suspicious mass in either breast. Asymmetric density in the subareolar portion of the left breast. Recommend true lateral and spot compression MLO views. ASSESSMENT:. Overall Assessment: Incomplete: need additional imaging evaluation, BI-RAD 0 Management: Diagnostic Mammogram of the left breast. . Patient should continue monthly self-breast exams. A clinical breast exam by your physician is recommended on an annual basis. This exam should not preclude additional follow-up of suspicious palpable abnormalities. Note on Darshana scores and lifetime risk: 1. A Darshana score greater than 3% is considered moderate risk. If this is the case, consider specialist referral to assess eligibility for a risk reducing agent. 2. If overall lifetime risk for the development of breast cancer is 20% or higher, the patient may qualify for future screening with alternating mammogram and breast MRI. Electronically signed and approved by: Harsh Abrams M.D. Radiologis
== END | disposition home or self-care (01) ==
LOC: RADMAMWWP 15:12
PROVIDERS: ATTEND Internal Medicine
DX: Z12.31 Encounter for screening mammogram for malignant neoplasm of breast (principal); Z78.0 Asymptomatic menopausal state
CPT/HCPCS: 77067

== ENCOUNTER → 2023-12-06 | Outpatient (CLI) | payer OTHER ==
--- NOTE | 2023-12-06 15:14 | MM ---
Reason for Exam: Additional evaluation requested from abnormal screening. Last screening mammogram was performed less than 1 month ago. Patient History: Menarche at age 17. First Full-Term at age 27. Postmenopausal. Patient used Hormonal Contraceptives for 2 years. Risk Values: Darshana 5 year model risk: 1.1%. NCI Lifetime model risk: 8.8%. Prior Study Comparison: 11/14/2021 Bilateral Screening Mammogram, [facility]. 11/29/2023 Bilateral MG screening mammo w CAD, [facility]. Tissue Density: Left: There are scattered areas of fibroglandular density. Findings: Analyzed By CAD. Area of concern/asymmetry compresses out on spot compression imaging. No suspicious masses, calcifications or distortions. Overall Assessment: Benign, BI-RAD 2 Management: Screening Mammogram of both breasts in 1 year. Results were given to the patient verbally at the time of exam. Patient should continue monthly self-breast exams. A clinical breast exam by your physician is recommended on an annual basis. This exam should not preclude additional follow-up of suspicious palpable abnormalities. Note on Darshana scores and lifetime risk: 1. A Darshana score greater than 3% is considered moderate risk. If this is the case, consider specialist referral to assess eligibility for a risk reducing agent. 2. If overall lifetime risk for the development of breast cancer is 20% or higher, the patient may qualify for future screening with alternating mammogram and breast MRI. Electronically signed and approved by: Geovanny Balbuena DO
== END | disposition home or self-care (01) ==
LOC: RADMAMWWP 14:01
PROVIDERS: ATTEND Internal Medicine
DX: R92.322 Mammographic fibroglandular density, left breast (principal); Z78.0 Asymptomatic menopausal state
CPT/HCPCS: 77065; G0279; 77061

== ENCOUNTER → 2023-12-07 | Outpatient (CLI) | payer OTHER ==
--- NOTE | 2023-12-12 14:39 | MR ---
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 TECHNIQUE: Multi planar, multi sequence imaging was performed utilizing: T1-weighted, T2-weighted, a nd turbo inversion recovery imaging of the lumbar spine. IV Contrast: cc . (None if empty) FINDINGS: Alignment: The lumbar vertebral bodies have preserved heights and alignment. Cord: The conus medullaris and the distal spinal cord appear unremarkable with regards to their signa l intensity and morphology. Bones/Discs: Post surgical changes throughout the spine which limits evaluation extending from L2 to S1. Degeneration changes worse at L1-L2. Multilevel facet joint arthropathy throughout the spine. T12-L1: No evidence of significant spinal canal stenosis or neural foraminal stenosis. L1-L2: No evidence of significant spinal canal stenosis or neural foraminal stenosis. L2-L3: No evidence of significant spinal canal stenosis or neural foraminal stenosis. L3-L4: Susceptibility artifact limits evaluation at this level the right neural foramen is poorly vis ualized. Otherwise, no evidence for significant spinal canal or neural foraminal stenosis on the left . L4-L5: Susceptibility artifact limits evaluation at this level the right neural foramen is poorly vis ualized. Otherwise, no evidence for significant spinal canal or neural foraminal stenosis on the left . L5-S1: No evidence of significant spinal canal stenosis. Facet joint arthropathy mild bilateral neura l foraminal stenosis. No significant spinal canal or neural foraminal stenosis in the remainder of the visualized levels. Other findings: Surgical bed fluid collection extending 9.8 cm in length approximately 32 x 18 mm in transverse imaging. IMPRESSION: 1. Post surgical changes without evidence for significant spinal canal stenosis. 2. Neural foramen on the right are poorly visualized at L3-L4 and L4-L5 secondary stability artifact . 3. Surgical bed fluid collection likely representing seroma without definitive connection to the the latrice sac.
== END | disposition home or self-care (01) ==
LOC: RADMRIMAIN 11:42
PROVIDERS: ATTEND Internal Medicine
DX: M51.36 Other intervertebral disc degeneration, lumbar region (principal); Z98.890 Other specified postprocedural states
CPT/HCPCS: 72148

== ENCOUNTER → 2023-12-17 | Outpatient (CLI) | payer OTHER ==
[2023-12-17 17:10] LABS: Basophils # (A) 0.05 X 10*3/uL (0.00-0.10); Basophils % (A) 0.6 %; Eosinophils % (A) 3.8 %; HCT 51.4 % (37.2-46.3); HGB 16.2 g/dL (12.0-15.0); Lymphocytes # (A) 2.72 X 10*3/uL (0.90-5.00); Lymphocytes % (A) 34.4 %; MCH 31.2 pg (27.0-32.0); MCHC 31.5 g/dL (32.0-37.0); MCV 98.8 FL (80.0-97.0); Mean Platelet Volume 10.1 FL (9.5-12.2); Monocytes # (A) 0.53 X 10*3/uL (0.20-1.00); Monocytes % (A) 6.7 %; NRBC Per 100 WBC 0 X 10*3/uL (0.00-0.01); Neutrophils # (A) 4.29 X 10*3/uL (1.80-7.70); Neutrophils % (A) 54.4 %; Platelet Count 282 X 10*3/uL (140-440); RDW 13.6 % (11.5-14.5)
[2023-12-17 17:58] LABS: ALT 16 U/L (8-44); AST 20 U/L (13-35); Albumin 4.3 g/dL (3.8-4.9); Albumin/Globulin Ratio 1.79 Ratio (1.60-3.17); Alkaline Phosphatase 104 U/L (41-126); BUN/Creat Ratio 11.83 Ratio (12.00-20.00); Blood Urea Nitrogen 7.1 mg/dL (9.0-27.0); Calcium 10.1 mg/dL (8.7-10.3); Carbon Dioxide 27.6 mmol/L (21.6-31.8); Chloride 107 mmol/L (96-109); Chol/HDL Ratio 4.63 Ratio; Globulin 2.4 g/dL (1.6-3.3); Glucose 88 mg/dL (70-110); LDL Cholesterol,Calculated 171.8 mg/dL (0.0-131.0); Potassium 4.8 mmol/L (3.5-5.5); Sodium 145 mmol/L (135-145); Total Bilirubin 0.4 mg/dL (0.3-1.2); Total Protein 6.7 g/dL (6.2-8.2)
== END | disposition home or self-care (01) ==
LOC: LABWHC1 12:57
PROVIDERS: ATTEND Internal Medicine
DX: Z00.00 Encounter for general adult medical examination without abnormal findings (principal); E55.9 Vitamin D deficiency, unspecified; E04.1 Nontoxic single thyroid nodule; R73.9 Hyperglycemia, unspecified
CPT/HCPCS: 36415; 80053; 80061; 82306; 83036; 84443; 85025

== ENCOUNTER 2023-12-18 15:37 | Emergency (ER) | payer OTHER ==
--- NOTE | 2023-12-18 16:59 | ED ---
Back Pain HPI - General Chief Complaint: Back Pain/Injury Stated Complaint: Back pain Time Seen by Provider: 12/18/23 16:58 Source: patient, RN notes reviewed Limitations: no limitations - History of Present Illness Initial Comments: 53-year-old female presenting to the ER with a chief complaint of back pain. Patient states she underwent lumbar spinal surgery by Dr. Clark about a year ago. She reports she felt a cracking sensation and has been in extreme pain since. She does follow-up outpatient at a pain clinic in [place] oxycodone and Percocet. Last dose prescribed on November 22, 2023. She reports that she has been taking 2 pills increased. She states she does not follow-up to them until , 12-20-2023. She also is a follow-up appoint with Dr. Filemon francois on the . Denies any new radiation, saddle paresthesias, weakness, bowel or bladder incontinence, fevers. - Related Data Home Medications Medication Instructions Recorded Confirmed Cetirizine HCl [Zyrtec] 10 mg PO DAILY 06/27/22 08/03/23 Omeprazole [PriLOSEC] 20 mg PO DAILY 06/27/22 08/03/23 Fluticasone Nasal [place] [Flonase 1 spray EA NOSTRIL BID 09/08/22 08/03/23 Nasal [place]] HYDROcodone/APAP 10-325MG [[place] 1 tab PO TID PRN 08/03/23 08/03/23 10-325] traMADol HCL [Ultram ER] 100 mg PO BID PRN 08/03/23 08/03/23 Allergies Allergy/AdvReac Type Severity Reaction Status Date / Time succinylcholine Allergy Anaphylaxis Verified 11/12/23 17:07 morphine AdvReac Chest Pain Verified 11/12/23 17:07 Review of Systems ROS Statement: Those systems with pertinent positive or pertinent negative responses have been documented in the HPI. ROS Other: All systems not noted in ROS Statement are negative. Past Medical History Additional Past Medical History / Comment(s): Herniated discs, thyroid nodules. History of Any Multi-Drug Resistant Organisms: None Reported Past Surgical History: Back Surgery, Cholecystectomy, Orthopedic Surgery, Tons illectomy, Tubal Ligation Additional Past Surgical History / Comment(s): Right hand nerve repair, L2 to pelvis decompression and fusion (06/13/22). Past Anesthesia/Blood Transfusion Reactions: Previous Problems w/ Anesthesia Additional Past Anesthesia/Blood Transfusion Reaction / Comment(s): When pt was a child and had her tonsils removed-"heart stopped." Past Psychological History: No Psychological Hx Reported Smoking Status: Current every day smoker Past Alcohol Use History: None Reported Past Drug Use History: Marijuana - Past Family History Mother Family Medical History: Cancer Father Family Medical History: Cancer General Exam Limitations: no limitations General appearance: alert, in no apparent distress Head exam: Present: atraumatic, normocephalic, normal inspection Eye exam: Present: normal appearance, PERRL, EOMI. Absent: scleral icterus, conjunctival injection, periorbital swelling Neck exam: Present: normal inspection. Absent: tenderness, meningismus, lymphadenopathy Respiratory exam: Present: normal lung sounds bilaterally. Absent: respiratory distress, wheezes, rales, rhonchi, stridor Cardiovascular Exam: Present: regular rate, normal rhythm, normal heart sounds. Absent: systolic murmur, diastolic murmur, rubs, gallop, clicks GI/Abdominal exam: Present: soft, normal bowel sounds. Absent: distended, tenderness, guarding, rebound, rigid Extremities exam: Present: normal inspection, full ROM, normal capillary refill. Absent: tenderness, pedal edema, joint swelling, calf tenderness Back exam: Present: tenderness (lumbar spine), other (healed midline surgical scar) Neurological exam: Present: alert, oriented X3, CN II-XII intact Psychiatric exam: Present: normal affect, normal mood Skin exam: Present: warm, dry, intact, normal color. Absent: rash Course Vital Signs 12/18/23 12/18/23 15:48 17:42 Temperature 97.8 F 98 F Pulse Rate 90 77 Respiratory 20 18 Rate Blood Pressure 110/68 115/87 O2 Sat by Pulse 98 99 Oximetry Medical Decision Making - Medical Decision Making Was pt. sent in by a medical professional or institution (, PA, CHOIR TEACHER, urgent care, hospital, or senior care...) When possible be specific @ -No Did you speak to anyone other than the patient for history (EMS, parent, family, police, friend...)? What history was obtained from this source @ -No Did you review nursing and triage notes (agree or disagree)? Why? @ -I reviewed and agree with nursing and triage notes Were old charts reviewed (outside hosp., previous admission, EMS record, old EKG, old radiological studies, urgent care reports/EKG's, senior care records)? Report findings @ -No old charts were reviewed Differential Diagnosis (chest pain, altered mental status, abdominal pain women, abdominal pain men, vaginal bleeding, weakness, fever, dyspnea, syncope, headache, dizziness, GI bleed, back pain, seizure, CVA, palpatations, mental hea lth, musculoskeletal)? @ -Differential Back Pain: Strain, zoster, cauda equina syndrome, epidural abscess, vertebral osteomyelitis, discitis, fracture, subluxation, disc herniation, DJD, spinal stenosis, dissection, AAA, pancreatitis, peptic ulcer disease, pyelonephritis, kidney stone, this is not meant to be an all-inclusive list. EKG interpreted by me (3pts min.). @ -None X-rays interpreted by me (1pt min.). @ -Lumbar spine x-rays interpreted by me significant for lumbar fusion with no acute process. CT interpreted by me (1pt min.). @ -None done U/S interpreted by me (1pt. min.). @ -None done What testing was considered but not performed or refused? (CT, X-rays, U/S, labs)? Why? @ -None What meds were considered but not given or refused? Why? @ -None Did you discuss the management of the patient with other professionals (professionals i.e. , PA, CHOIR TEACHER, lab, RT, psych nurse, social work nurse, store administrative assistant, teacher, school services officer, case advocate)? Give summary @ -No Was smoking cessation discussed for >3mins.? @ -No Was critical care preformed (if so, how long)? @ -No Were there social determinants of health that impacted care today? How? (Homelessness, low income, unemployed, alcoholism, drug addiction, transportation, low edu. Level, literacy, decrease access to med. care, detention, rehab)? @ -No Was there de-escalation of care discussed even if they declined (Discuss DNR or withdrawal of care, Hospice)? DNR status @ -No What co-morbidities impacted this encounter? (DM, HTN, Smoking, COPD, CAD, Cancer, CVA, ARF, Chemo, Hep., AIDS, mental health diagnosis, sleep apnea, morb id obesity)? @ -Back pain follows up with pain management Was patient admitted / discharged? Hospital course, mention meds given and route, prescriptions, significant lab abnormalities, going to OR and other pertinent info. @ -Discharge. Patient is a 53-year-old female presented to the ER with a chief complaint of back pain. History and physical exam completed. Vitals stable. Patient no signs of acute distress and nontoxic-appearing. No red flag back pain symptoms indicative of cauda equina syndrome. No acute neurological findings on exam. X-rays obtained negative for acute process. Patient received IM Toradol for pain control in the ER. Advise follow-up with pain management. Return parameters discussed. Patient discharged in stable condition with follow-up to PCP/pain management. Patient verbally expressed understanding and agreement with care plan. Case discussed with ED attending, Dr. Padnya. Undiagnosed new problem with uncertain prognosis? @ -No Drug Therapy requiring intensive monitoring for toxicity (Heparin, Nitro, Insulin, Cardizem)? @ -No Were any procedures done? @ -No Diagnosis/symptom? @ -Back pain Acute, or Chronic, or Acute on Chronic? @ -Chronic Uncomplicated (without systemic symptoms) or Complicated (systemic symptoms)? @ -uncomplicated Side effects of treatment? @ -No Exacerbation, Progression, or Severe Exacerbation? @ -No Poses a threat to life or bodily function? How? (Chest pain, [place], [place], pneumonia, PE, COPD, DKA, ARF, appy, cholecystitis, CVA, Diverticulitis, Homicidal, Suicidal, threat to staff... and all critical care pts) @ -No - Radiology Data Radiology results: report reviewed, image reviewed Disposition Clinical Impression: Back pain Disposition: HOME SELF-CARE Condition: Stable Instructions (If sedation given, give patient instructions): Back Pain (ED) Additional Instructions: Follow-up with pain management as scheduled. Return to ER for any new or worsening symptoms. Is patient prescribed a controlled substance at d/c from ED?: No Referrals: Bhavesh Langley DO [Primary Care Provider] - 1-2 days Time of Disposition: 17:30
--- NOTE | 2023-12-18 17:03 | XR ---
EXAMINATION TYPE: XR lumbar spine 2 or 3V DATE OF EXAM: 12/18/2023 CLINICAL HISTORY: pain TECHNIQUE: Three views of the lumbar spine are submitted. COMPARISON: 11/12/2023 FINDINGS: There is evidence for lumbar fusion extending from L2-3 through L5-S1 with intervertebral spacers not ed to be in place as well as interconnecting pedicular screws. Postoperative alignment is stable rela tive to the prior study without evidence for fracture or subluxation. IMPRESSION: Stable postoperative alignment and appearance. [place]
[2023-12-18] MEDS: KETOROLAC 15 MG/ML 1 ML VIAL IM STA (17:39)
[2023-12-18 17:51] VITALS: BP 115/87; PULSE 77; RESP 18; TEMP 98
== END 2023-12-18 17:50 | disposition home or self-care (01) ==
LOC: EC 15:37
DX: M43.26 Fusion of spine, lumbar region (principal); F17.200 Nicotine dependence, unspecified, uncomplicated; Z88.4 Allergy status to anesthetic agent; Z88.5 Allergy status to narcotic agent
CPT/HCPCS: 72100; 99283; 96372; J1885

== ENCOUNTER → 2024-01-11 | Outpatient (CLI) | payer MEDICARE, OTHER ==
--- NOTE | 2024-01-19 11:22 | CT ---
EXAMINATION TYPE: CT lumbar spine wo con DATE OF EXAM: 01/18/2024 COMPARISON: 07/09/2022 HISTORY: low back pain CT DLP: 1768.5 mGycm CONTRAST: None TECHNIQUE: CT of the lumbar spine is performed on a spiral scan at 3 mm thick sections. Reconstructed images are performed in the coronal and sagittal planes. FINDINGS: T12-L1: No focal disc herniation or significant disc bulge is evident. No spinal canal stenosis or neural foraminal stenosis is present. L1-L2: There may be mild superior endplate compression deformity of L2. Mild posterior wall displacem ent is evident in the sagittal plane images estimated 0.4 cm. No spinal canal stenosis is evident. Th is is not appreciated on the axial plane images. This is present previously. L2-L3: Disc spacer is present. There is some narrowing of the residual disc space. Minimal posterior endplate spurring is present. No spinal canal stenosis. Neural foramen are patent. L3-L4: Disc spacer is present. Minimal posterior endplate spurring is present, no spinal canal steno sis. Neural foramen are patent. L4-L5: Disc spacer is present. Minimal posterior endplate spurring is present, no spinal canal steno sis. Neural foramen are patent. L5-S1: Disc spacer is present. Minimal posterior endplate spurring is present, no spinal canal steno sis. Neural foramen are patent. Vertebral alignment appears normal. Resolution of soft tissue collection. IMPRESSION: 1. Postsurgical changes appear stable from 2021.
== END | disposition home or self-care (01) ==
LOC: RADCTMAIN 16:19
PROVIDERS: ATTEND Orthopaedic Surgery
DX: Z53.9 Procedure and treatment not carried out, unspecified reason (principal)

== ENCOUNTER → 2024-01-30 | Day surgery (SDC) | payer MEDICARE, OTHER ==
[2024-01-24 14:25] VITALS: BMI 31.5
[~2024-01-30] MED LIST changes: +LIDOCAINE 2% (PF) 20 MG/ML 5 ML VIAL ONE; +PROPOFOL 10 MG/ML 20 ML VIAL IV ONE
[2024-01-30] MEDS: LACTATED RINGERS 1,000 ML IV ONE (08:22)
[2024-01-30 08:57] VITALS: RESP 16; TEMP 97.3
--- NOTE | 2024-01-30 09:25 | P.PCN ---
Date of Procedure: 01/30/24 Procedure(s) Performed: Brief history: Patient is a pleasant 54-year-old white female scheduled for an elective upper endoscopy as well as colonoscopy as a part of evaluation of GERD/intermittent dysphagia to solids and screening for colon cancer Procedure performed: Esophagogastroduodenoscopy with biopsy and dilation Colonoscopy with snare polypectomy. Preoperative diagnosis: GERD/intermittent dysphagia to solids Screening for colon cancer Anesthesia: MAC Procedure: After informed consent was obtained from the patient was brought into the endoscopy unit and IV sedation was administered by anesthesia under continuous monitoring. Initially upper endoscopy was done. The Olympus GF 160 video en doscope was inserted inserted into the mouth and esophagus intubated without any difficulty and was gradually advanced into the stomach and duodenum and carefully examined. The bulb and second part of the duodenum appeared normal. The scope was then withdrawn into the stomach adequately insufflated with air and upon careful examination the antrum had severe gastritis and biopsies were done from this area. Mucosa of the body, cardia and fundus appeared normal. The scope was then withdrawn into the esophagus. The GE junction was located at 40 cm to the incisors. There was a distal esophageal Schatzki's ring identified that was dilated using 18 to 20 mm TTS balloon for 60 seconds. The GE junction appeared regular with no erythema erosions or ulcerations. Biopsies were done from the mid and distal esophagus to rule out eosinophilic esophagitis. Rest of the esophagus appeared normal. Patient tolerated the procedure well. At this time the patient continued to remain sedation. Initial digital rectal examination was normal. Olympus CF 160 video colonoscope was then inserted into the rectum and gradually advanced to the cecum without any difficulty. Careful examination was performed as the scope was gradually being withdrawn. The prep was excellent. The cecum, appeared normal. The ascending colon there is a 5 mm and 1 cm sessile polyps removed by snare polypectomy. Rest of the ascending colon, transverse colon, descending colon, sigmoid colon and rectum appeared normal. In the sigmoid colon there was a 5 mm polyp removed by snare polypectomy. Retroflexion was performed in the rectum and no lesions were noted. Patient tolerated the procedure well. Impression: 1. Upper endoscopy revealed distal esophageal Schatzki's ring s/p balloon dilation using 18 to 20 mm TTS balloon and bilateral gastritis 2. Colonoscopy revealed colon a) 5 mm and 1 cm ascending colon polyp s/p snare polypectomy b) 5 millimeters sigmoid colon polyp status post snare polypectomy Recommendations: Findings of this examination were discussed with the patient as well as her family. She was advised to follow-up the biopsy results. Continue with omeprazole 20 mg daily and follow antireflux measures. If the biopsy reveals adenoma, recommend repeat colonoscopy in 3 years.
[2024-01-30 09:55] VITALS: BP 119/65; PULSE 81
== END ==
LOC: ORWHC2ENDO 07:55
PROVIDERS: ATTEND Internal Medicine Gastroenterology
DX: Z12.11 Encounter for screening for malignant neoplasm of colon (principal); K21.00 Gastro-esophageal reflux disease with esophagitis, without bleeding; D12.5 Benign neoplasm of sigmoid colon; K31.9 Disease of stomach and duodenum, unspecified; D12.3 Benign neoplasm of transverse colon; K22.2 Esophageal obstruction; E78.5 Hyperlipidemia, unspecified; E07.9 Disorder of thyroid, unspecified; F17.210 Nicotine dependence, cigarettes, uncomplicated; M19.90 Unspecified osteoarthritis, unspecified site; F12.90 Cannabis use, unspecified, uncomplicated; Z79.899 Other long term (current) drug therapy; Z88.8 Allergy status to other drugs, medicaments and biological substances; Z88.5 Allergy status to narcotic agent
CPT/HCPCS: 88305; 45385; 43239; 43249; J2704; J2001; C1726

== ENCOUNTER → 2024-04-11 | Outpatient (CLI) | payer MEDICARE, OTHER ==
--- NOTE | 2024-04-16 13:36 | CTL ---
EXAMINATION TYPE: CT Low Dose Lung DATE OF EXAM: 04/12/2024 7:32 AM CLINICAL INDICATION:Female, 54 years old with history of Z12.2 SCREENING, R91.1 LUNG NODULES; smoker , history of tobacco use. COMPARISON: CT Low Dose Lung exam from 04/06/2023 TECHNIQUE: Multiple axial non-contrast scans were obtained from approximately the lung apices through the upper abdomen. Coronal and sagittal reformatted images were obtained. Low dose technique was uti lized. CT DLP: 139.6 mGycm, Automated exposure control for dose reduction was used. CT Contrast: Contrast used: None Oral contrast used: None FINDINGS: ======== here is no abnormal airspace density or interstitial density. There are a few scattered 3 mm nodules which are stable. No new or suspicious lung mass or nodule is seen. There is no pleural effusion, pleural thickening or pneumothorax. The great vessels chest are normal is no mediastinal, hilar or axillary adenopathy. Nodules: RUL: None. RML: None. RLL: None. KEENA: None. LLL: A 3 mm densely calcified nodule. Series 4, image 231. The osseous structures of thorax are intact without focal osseous abnormality. Limited scanning the upper abdomen reveals cholecystectomy clips in the gallbladder fossa, but no savanna ss acute abnormality. Comparison the prior study reveals no interval change. IMPRESSION: 1. Lung RADS category 2, benign. Continue routine screening yearly intervals. 2. No acute cardiopulmonary disease. S Modifier (other clinically significant findings): None Recommend smoking cessation (if current smoker), or continuation of smoking cessation (if prior smoke r). Annual screening for lung cancer with low-dose computed tomography is recommended in adults ages 55 to 77 years who have a 30 pack-year smoking history and currently smoke or have quit within the pa st 15 years. Screening should be discontinued once a person has not smoked for 15 years or develops a health problem that substantially limits life expectancy or the ability or willingness to have curat pat lung surgery. Lung rads 2021 [email or web address]
== END | disposition home or self-care (01) ==
LOC: RADCTMAIN 16:39
PROVIDERS: ATTEND Internal Medicine
DX: Z12.2 Encounter for screening for malignant neoplasm of respiratory organs (principal); F17.210 Nicotine dependence, cigarettes, uncomplicated; R91.1 Solitary pulmonary nodule
CPT/HCPCS: 71271

== ENCOUNTER → 2024-07-04 | Outpatient (CLI) | payer MEDICARE, OTHER | END | disposition home or self-care (01) | LOC: LABWHC1 14:39 | PROVIDERS: ATTEND Student in an Organized Health Care Education/Training Program | CPT/HCPCS: 36415; 84436; 84443; 84480 ==

== ENCOUNTER → 2024-07-23 | Outpatient (CLI) | payer MEDICARE, OTHER ==
[2024-07-23 18:39] LABS: Basophils # (A) 0.06 X 10*3/uL (0.00-0.10); Basophils % (A) 0.7 %; Eosinophils # (A) 0.29 X 10*3/uL (0.04-0.35); Eosinophils % (A) 3.4 %; HCT 51.5 % (37.2-46.3); HGB 16.6 g/dL (12.0-15.0); Lymphocytes # (A) 3.14 X 10*3/uL (0.90-5.00); Lymphocytes % (A) 36.6 %; MCH 31.5 pg (27.0-32.0); MCHC 32.2 g/dL (32.0-37.0); MCV 97.7 FL (80.0-97.0); Mean Platelet Volume 10.7 FL (9.5-12.2); Monocytes # (A) 0.61 X 10*3/uL (0.20-1.00); Monocytes % (A) 7.1 %; NRBC Per 100 WBC 0 X 10*3/uL (0.00-0.01); Neutrophils # (A) 4.45 X 10*3/uL (1.80-7.70); Platelet Count 322 X 10*3/uL (140-440); RBC 5.27 X 10*6/uL (4.10-5.20); WBC 8.57 X 10*3/uL (4.50-10.00)
[2024-07-23 19:07] LABS: % Iron Saturation 18.46 (12.00-45.00); ALT 29 U/L (8-44); AST 28 U/L (13-35); Albumin 4.4 g/dL (3.8-4.9); Albumin/Globulin Ratio 1.91 Ratio (1.60-3.17); Alkaline Phosphatase 116 U/L (41-126); BUN/Creat Ratio 12.57 Ratio (12.00-20.00); Blood Urea Nitrogen 8.8 mg/dL (9.0-27.0); Calcium 10.1 mg/dL (8.7-10.3); Carbon Dioxide 25.8 mmol/L (21.6-31.8); Chloride 106 mmol/L (96-109); Chol/HDL Ratio 3.87 Ratio; Ferritin 81.7 ng/mL (10.0-291.0); Globulin 2.3 g/dL (1.6-3.3); Glucose 86 mg/dL (70-110); Iron 67 UG/DL (50-170); LDL Cholesterol,Calculated 118.7 mg/dL (0.0-131.0); Sodium 142 mmol/L (135-145); Total Bilirubin 0.5 mg/dL (0.3-1.2); Total Iron Binding Capacity 363 UG/DL (228-460); Total Protein 6.7 g/dL (6.2-8.2); VLDL Calculation 19.96 mg/dL (5.00-40.00)
== END | disposition home or self-care (01) ==
LOC: LABWHC1 12:13
PROVIDERS: ATTEND Internal Medicine
DX: Z00.00 Encounter for general adult medical examination without abnormal findings (principal); E53.8 Deficiency of other specified B group vitamins; E55.9 Vitamin D deficiency, unspecified
CPT/HCPCS: 36415; 80053; 80061; 82306; 82607; 82728; 82746; 83036; 83540; 83550; 85025

== ENCOUNTER → 2024-08-06 | Outpatient (CLI) | payer MEDICARE, OTHER ==
[2024-08-06 15:32] LABS: Basophils % (A) 1 %; Eosinophils # (A) 0.2 k/uL (0-0.7); Eosinophils % (A) 3 %; HCT 50.9 % (34.0-46.0); HGB 16.1 gm/dL (11.4-16.0); Lymphocytes # (A) 2.9 k/uL (1.0-4.8); Lymphocytes % (A) 41 %; MCH 31.1 pg (25.0-35.0); MCHC 31.7 g/dL (31.0-37.0); MCV 98.2 fL (80.0-100.0); Mean Platelet Volume 6.9; Monocytes # (A) 0.5 k/uL (0-1.0); Monocytes % (A) 6 %; Neutrophils # (A) 3.4 k/uL (1.3-7.7); Neutrophils % (A) 48 %; Platelet Count 295 k/uL (150-450); RBC 5.19 m/uL (3.80-5.40)
[2024-08-06 18:29] LABS: Protein, Total 6.6 g/dL (6.2-8.2)
[2024-08-07 10:31] LABS: RBC Morphology Normal
== END | disposition home or self-care (01) ==
LOC: LABWHC1 14:23
PROVIDERS: ATTEND Internal Medicine
DX: D75.1 Secondary polycythemia (principal)
CPT/HCPCS: 36415; 82668; 84165; 85025; 86334

== ENCOUNTER 2024-08-09 05:38 | Emergency (ER) | payer MEDICARE, OTHER ==
[2024-08-09 05:44] VITALS: TEMP 98.2
--- NOTE | 2024-08-09 06:20 | ED ---
ENT HPI - General Chief complaint: Dental/Oral Stated complaint: Dental Pain Time Seen by Provider: 08/09/24 05:57 Source: patient, RN notes reviewed Mode of arrival: ambulatory Limitations: no limitations - History of Present Illness Initial comments: 54-year-old female presents emerged from treatment of left lower dental pain. Patient states that started around 8 PM last night. Patient states she had an infection this tooth over the summer states that it did get better and she was told that tooth in repole but never had a performed. Patient states she had no relief with her pain meds currently. Patient denies any nausea vomiting no fevers no difficulty swallowing. - Related Data Home Medications Medication Instructions Recorded Confirmed Cetirizine HCl [Zyrtec] 10 mg PO QAM 06/27/22 01/30/24 Omeprazole [PriLOSEC] 20 mg PO QAM 06/27/22 01/30/24 Fluticasone Nasal [place] [Flonase 1 spray EA NOSTRIL BID 09/08/22 01/30/24 Nasal [place]] buprenorphine HCL [Belbuca] 300 mcg BUCCAL DIRECTED 01/24/24 01/30/24 oxyCODONE-APAP 5-325MG [Percocet 1 tab PO TID 01/24/24 01/30/24 5-325 mg] Previous Rx's Medication Instructions Recorded Amoxic-Pot Clav 875-125Mg 1 tab PO Q12HR #20 tab 08/09/24 [Augmentin 875-125] Allergies Allergy/AdvReac Type Severity Reaction Status Date / Time morphine AdvReac Chest Pain Verified 08/09/24 05:44 succinylcholine AdvReac Anaphylaxis Verified 08/09/24 05:44 Review of Systems ROS Statement: Those systems with pertinent positive or pertinent negative responses have been documented in the HPI. ROS Other: All systems not noted in ROS Statement are negative. Past Medical History Additional Past Medical History / Comment(s): Herniated discs, thyroid nodules. History of Any Multi-Drug Resistant Organisms: None Reported Past Surgical History: Back Surgery, Cholecystectomy, Orthopedic Surgery, Tonsillectomy, Tubal Ligation Additional Past Surgical History / Comment(s): Right hand nerve repair, L2 to pelvis decompression and fusion (06/13/22). Past Anesthesia/Blood Transfusion Reactions: Previous Problems w/ Anesthesia Additional Past Anesthesia/Blood Transfusion Reaction / Comment(s): When pt was a child and had her tonsils removed-"heart stopped." Past Psychological History: No Psychological Hx Reported Smoking Status: Current every day smoker - Past Family History Mother Family Medical History: Cancer Father Family Medical History: Cancer General Exam Limitations: no limitations General appearance: alert, in no apparent distress Head exam: Present: atraumatic, normocephalic, normal inspection Eye exam: Present: normal appearance, PERRL, EOMI. Absent: scleral icterus, conjunctival injection, periorbital swelling ENT exam: Present: mucous membranes moist. Absent: normal exam, normal oropharynx (Poor dentition no drainable abscess mild erythema of lower gumline) Neck exam: Present: normal inspection, full ROM. Absent: tenderness, meningismus, lymphadenopathy Respiratory exam: Present: normal lung sounds bilaterally. Absent: respiratory distress, wheezes, rales, rhonchi, stridor Cardiovascular Exam: Present: regular rate, normal rhythm, normal heart sounds. Absent: systolic murmur, diastolic murmur, rubs, gallop, clicks Course Vital Signs 08/09/24 05:40 Temperature 98.2 F Pulse Rate 92 Respiratory 16 Rate Blood Pressure 133/88 O2 Sat by Pulse 100 Oximetry Medical Decision Making - Medical Decision Making Was pt. sent in by a medical professional or institution (, PA, HAM STRIPPER, urgent care, hospital, or skilled nursing...) When possible be specific @ -No Did you speak to anyone other than the patient for history (EMS, parent, family, police, friend...)? What history was obtained from this source @ -No Did you review nursing and triage notes (agree or disagree)? Why? @ -I reviewed and agree with nursing and triage notes Were old charts reviewed (outside hosp., previous admission, EMS record, old EKG, old radiological studies, urgent care reports/EKG's, skilled nursing records)? Report findings @ -No old charts were reviewed Differential Diagnosis (chest pain, altered mental status, abdominal pain women, abdominal pain men, vaginal bleeding, weakness, fever, dyspnea, syncope, headache, dizziness, GI bleed, back pain, seizure, CVA, palpatations, mental health, musculoskeletal)? @ -Dental abscess dental infection, toothache EKG interpreted by me (3pts min.). @ -None X-rays interpreted by me (1pt min.). @ -None done CT interpreted by me (1pt min.). @ -None done U/S interpreted by me (1pt. min.). @ -None done What testing was considered but not performed or refused? (CT, X-rays, U/S, labs)? Why? @ -None What meds were considered but not given or refused? Why? @ -None Did you discuss the management of the patient with other professionals (professionals i.e. DrNazanin, PA, HAM STRIPPER, lab, RT, psych nurse, social work assistant, bilingual teacher, teacher, admissions officer, casework specialist)? Give summary @ -No Was smoking cessation discussed for >3mins.? @ -No Was critical care preformed (if so, how long)? @ -No Were there social determinants of health that impacted care today? How? (Homelessness, low income, unemployed, alcoholism, drug addiction, transportatio n, low edu. Level, literacy, decrease access to med. care, assisted, rehab)? @ -No Was there de-escalation of care discussed even if they declined (Discuss DNR or withdrawal of care, Hospice)? DNR status @ -No What co-morbidities impacted this encounter? (DM, HTN, Smoking, COPD, CAD, Cancer, CVA, ARF, Chemo, Hep., AIDS, mental health diagnosis, sleep apnea, morbid obesity)? @ -None Was patient admitted / discharged? Hospital course, mention meds given and route, prescriptions, significant lab abnormalities, going to OR and other pertinent info. @ -Discharged patient presented for dental pain patient placed on Augmentin will follow-up with dentist return parameters jennifer patient no drainable abscess. Undiagnosed new problem with uncertain prognosis? @ -No Drug Therapy requiring intensive monitoring for toxicity (Heparin, Nitro, Insulin, Cardizem)? @ -No Were any procedures done? @ -No Diagnosis/symptom? @ -Dental infection Acute, or Chronic, or Acute on Chronic? @ -Acute Uncomplicated (without systemic symptoms) or Complicated (systemic symptoms)? @ -Uncomplicated Side effects of treatment? @ -No Exacerbation, Progression, or Severe Exacerbation? @ -No Poses a threat to life or bodily function? How? (Chest pain, [place], [place], pneumonia, PE, COPD, DKA, ARF, appy, cholecystitis, CVA, Diverticulitis, Homicidal, Suicidal, threat to staff... and all critical care pts) @ -No Disposition Clinical Impression: Toothache, Dental infection Disposition: HOME SELF-CARE Condition: Stable Instructions (If sedation given, give patient instructions): Toothache (ED) Additional Instructions: Please return to the Emergency Department if symptoms worsen or any other concerns. Prescriptions: Amoxic-Pot Clav 875-125Mg [Augmentin 875-125] 1 tab PO Q12HR #20 tab Is patient prescribed a controlled substance at d/c from ED?: No Referrals: Bhavesh Langley DO [Primary Care Provider] - 1-2 days Time of Disposition: 06:20
[2024-08-09] MEDS: HYDROcodone/APAP 5-325MG 1 EACH TAB PO STA (06:35)
[2024-08-09] MEDS: IBUPROFEN 600 MG TAB PO STA (06:35)
[2024-08-09] MEDS: AMOXIC-POT CLAV 875-125MG 1 EACH TAB PO STA (06:35)
[2024-08-09] MEDS: ACET/COD 300 MG/30 MG STARTER PACK 6 TAB BTL PO STA (06:36)
[2024-08-09 06:40] VITALS: BP 115/80; PULSE 74; RESP 18
== END 2024-08-09 06:40 | disposition home or self-care (01) ==
LOC: EC 05:38
DX: K04.7 Periapical abscess without sinus (principal); F17.200 Nicotine dependence, unspecified, uncomplicated; Z88.5 Allergy status to narcotic agent; Z91.048 Other nonmedicinal substance allergy status
CPT/HCPCS: 99282

== ENCOUNTER 2024-08-16 21:48 | Emergency (ER) | payer MEDICARE, OTHER ==
[2024-08-16 21:56] VITALS: BP 107/67; PULSE 92; RESP 18; TEMP 98.1
--- NOTE | 2024-08-16 22:05 | ED ---
ENT HPI - General Chief complaint: Dental/Oral Stated complaint: LL Tooth Pain Time Seen by Provider: 08/16/24 22:00 Source: patient, RN notes reviewed Mode of arrival: ambulatory Limitations: no limitations - History of Present Illness Initial comments: This is a 54-year-old female presenting to the emergency department chief complaint of left mandibular tooth pain with radiation into her jaw and ear that has been worsening over the past 2 to 3 days. Patient denies fevers, chills, nausea, vomiting purulence from the site of the pain. states that she is attempted to make an appoint with her dentist in the upcoming week. She denies chest pain, shortness of breath, heart palpitations, difficulty breathing, paresthesias. Denies recent antibiotic use. She is prescribed Aristes tens that she has been taking at home without relief. Patient is concerned for infection of the tooth. - Related Data Home Medications Medication Instructions Recorded Confirmed Cetirizine HCl [Zyrtec] 10 mg PO QAM 06/27/22 01/30/24 Omeprazole [PriLOSEC] 20 mg PO QAM 06/27/22 01/30/24 Fluticasone Nasal [place] [Flonase 1 spray EA NOSTRIL BID 09/08/22 01/30/24 Nasal [place]] buprenorphine HCL [Belbuca] 300 mcg BUCCAL DIRECTED 01/24/24 01/30/24 oxyCODONE-APAP 5-325MG [Percocet 1 tab PO TID 01/24/24 01/30/24 5-325 mg] Previous Rx's Medication Instructions Recorded Amoxic-Pot Clav 875-125Mg 1 tab PO Q12HR #20 tab 08/09/24 [Augmentin 875-125] Amoxicillin 875 mg PO Q12HR #20 tablet 08/16/24 Allergies Allergy/AdvReac Type Severity Reaction Status Date / Time morphine AdvReac Chest Pain Verified 08/16/24 21:56 succinylcholine AdvReac Anaphylaxis Verified 08/16/24 21:56 Review of Systems ROS Statement: Those systems with pertinent positive or pertinent negative responses have been documented in the HPI. ROS Other: All systems not noted in ROS Statement are negative. Past Medical History Additional Past Medical History / Comment(s): Herniated discs, thyroid nodules. History of Any Multi-Drug Resistant Organisms: None Reported Past Surgical History: Back Surgery, Cholecystectomy, Orthopedic Surgery, Tonsillectomy, Tubal Ligation Additional Past Surgical History / Comment(s): Right hand nerve repair, L2 to pelvis decompression and fusion (06/13/22). Past Anesthesia/Blood Transfusion Reactions: Previous Problems w/ Anesthesia Additional Past Anesthesia/Blood Transfusion Reaction / Comment(s): When pt was a child and had her tonsils removed-"heart stopped." Past Psychological History: No Psychological Hx Reported Smoking Status: Current every day smoker Past Alcohol Use History: None Reported Past Drug Use History: None Reported - Past Family History Mother Family Medical History: Cancer Father Family Medical History: Cancer General Exam Limitations: no limitations General appearance: alert, in no apparent distress Eye exam: Present: normal appearance, PERRL, EOMI. Absent: scleral icterus, conjunctival injection, periorbital swelling Expanded Teeth exam: Present: dental caries, fractured tooth #, dental tenderness # Throat exam: normal inspection. negative: tonsillar erythema Neck exam: Present: normal inspection. Absent: tenderness, meningismus, lymphadenopathy Respiratory exam: Present: normal lung sounds bilaterally. Absent: respiratory distress, wheezes, rales, rhonchi, stridor Cardiovascular Exam: Present: regular rate, normal rhythm, normal heart sounds. Absent: systolic murmur, diastolic murmur, rubs, gallop, clicks GI/Abdominal exam: Present: soft, normal bowel sounds. Absent: distended, tenderness, guarding, rebound, rigid Extremities exam: Present: normal inspection, full ROM, normal capillary refill. Absent: tenderness, pedal edema, joint swelling, calf tenderness Back exam: Present: normal inspection Skin exam: Present: warm, dry, intact, normal color. Absent: rash Course Vital Signs 08/16/24 21:49 Temperature 98.1 F Pulse Rate 92 Respiratory 18 Rate Blood Pressure 107/67 O2 Sat by Pulse 96 Oximetry Medical Decision Making - Medical Decision Making Was pt. sent in by a medical professional or institution (, PA, MANUFACTURING QUALITY MANAGER, urgent care, hospital, or penitentiary...) When possible be specific @ -No Did you speak to anyone other than the patient for history (EMS, parent, family, police, friend...)? What history was obtained from this source @ -No Did you review nursing and triage notes (agree or disagree)? Why? @ -I reviewed and agree with nursing and triage notes Were old charts reviewed (outside hosp., previous admission, EMS record, old EKG, old radiological studies, urgent care reports/EKG's, penitentiary records)? Report findings @ -No old charts were reviewed Differential Diagnosis (chest pain, altered mental status, abdominal pain women, abdominal pain men, vaginal bleeding, weakness, fever, dyspnea, syncope, headache, dizziness, GI bleed, back pain, seizure, CVA, palpatations, mental health, musculoskeletal)? @ -Dental caries, dental abscess, pulpitis, this list is not all inclusive EKG interpreted by me (3pts min.). @ -None X-rays interpreted by me (1pt min.). @ -None done CT interpreted by me (1pt min.). @ -None done U/S interpreted by me (1pt. min.). @ -None done What testing was considered but not performed or refused? (CT, X-rays, U/S, labs)? Why? @ -None What meds were considered but not given or refused? Why? @ -None Did you discuss the management of the patient with other professionals (professionals i.e. , PA, MANUFACTURING QUALITY MANAGER, lab, RT, psych nurse, director of social media marketing, pulverizer feeder, teacher, college service officer, case managers)? Give summary @ -No Was smoking cessation discussed for >3mins.? @ -No Was critical care preformed (if so, how long)? @ -No Were there social determinants of health that impacted care today? How? (Homelessness, low income, unemployed, alcoholism, drug addiction, transport ation, low edu. Level, literacy, decrease access to med. care, correction, rehab)? @ -No Was there de-escalation of care discussed even if they declined (Discuss DNR or withdrawal of care, Hospice)? DNR status @ -No What co-morbidities impacted this encounter? (DM, HTN, Smoking, COPD, CAD, Cancer, CVA, ARF, Chemo, Hep., AIDS, mental health diagnosis, sleep apnea, morbid obesity)? @ -None Was patient admitted / discharged? Hospital course, mention meds given and route, prescriptions, significant lab abnormalities, going to OR and other pertinent info. @ -Discharge. 54-year-old female with dental pain. Evaluation patient noted to have overall poor dentition with point tenderness to the left mandibular tooth has noted to have a cavity in place. There is no evidence for dental abscess. Vitals are stable. Patient provided with dose of pain medication and sent a prescription for amoxicillin to take as directed instructed follow-up with dentist outpatient for further evaluation. Discussed with Dr. Khan Undiagnosed new problem with uncertain prognosis? @ -No Drug Therapy requiring intensive monitoring for toxicity (Heparin, Nitro, Insulin, Cardizem)? @ -No Were any procedures done? @ -No Diagnosis/symptom? @ -dental pain, dental carries Acute, or Chronic, or Acute on Chronic? @ -acute Uncomplicated (without systemic symptoms) or Complicated (systemic symptoms)? @ -uncomplicated Side effects of treatment? @ -No Exacerbation, Progression, or Severe Exacerbation? @ -No Poses a threat to life or bodily function? How? (Chest pain, [place], [place], pneumonia, PE, COPD, DKA, ARF, appy, cholecystitis, CVA, Diverticulitis, Homicidal, Suicidal, threat to staff... and all critical care pts) @ -No Disposition Clinical Impression: Pain, dental, Dental caries Disposition: HOME SELF-CARE Condition: Good Instructions (If sedation given, give patient instructions): Toothache (ED) Additional Instructions: Please return to the Emergency Department if symptoms worsen or any other concerns. Prescriptions: Amoxicillin 875 mg PO Q12HR #20 tablet Is patient prescribed a controlled substance at d/c from ED?: No Referrals: Bhavesh Langley DO [Primary Care Provider] - 1-2 days Time of Disposition: 22:05
[2024-08-16] MEDS: HYDROcodone/APAP 10-325MG 1 EACH TAB PO ONE (22:17)
== END 2024-08-16 22:28 | disposition home or self-care (01) ==
LOC: EC 21:48
DX: S02.5XXA Fracture of tooth (traumatic), initial encounter for closed fracture (principal); K02.9 Dental caries, unspecified; F17.200 Nicotine dependence, unspecified, uncomplicated; Z88.5 Allergy status to narcotic agent; Z88.8 Allergy status to other drugs, medicaments and biological substances; X58.XXXA Exposure to other specified factors, initial encounter
CPT/HCPCS: 99282

== ENCOUNTER → 2024-11-10 | Outpatient (CLI) | payer MEDICARE, OTHER ==
[2024-11-10 13:32] LABS: Appearance,Urine Cloudy (Clear); Bacteria,Urine Occasional /hpf; Bilirubin,Urine Negative (Negative); Blood,Urine Small (Negative); Color,Urine Yellow; Glucose,Urine (UA) Negative (Negative); Ketones,Urine Negative (Negative); Leukocyte Esterase,Urine Small (Negative); Mucus,Urine Many /hpf; Nitrite,Urine Negative (Negative); PH, Urine 6.5 (5.0-8.0); Protein,Urine Trace (Negative); RBC,Urine 13 /hpf (0-5); Specific Gravity,Urine 1.026 (1.001-1.035); Squamous Epithelial Cell,Urine 13 /hpf (0-4); WBC,Urine 6 /hpf (0-5)
[2024-11-10 15:04] LABS: Basophils # (A) 0.06 X 10*3/uL (0.00-0.10); Basophils % (A) 0.7 %; Eosinophils # (A) 0.21 X 10*3/uL (0.04-0.35); Eosinophils % (A) 2.4 %; HCT 49.6 % (37.2-46.3); HGB 16.4 g/dL (12.0-15.0); Lymphocytes # (A) 3.36 X 10*3/uL (0.90-5.00); Lymphocytes % (A) 38.7 %; MCH 31.7 pg (27.0-32.0); MCHC 33.1 g/dL (32.0-37.0); MCV 95.8 FL (80.0-97.0); Mean Platelet Volume 10.5 FL (9.5-12.2); Monocytes # (A) 0.75 X 10*3/uL (0.20-1.00); Monocytes % (A) 8.6 %; NRBC Per 100 WBC 0 X 10*3/uL (0.00-0.01); Neutrophils # (A) 4.29 X 10*3/uL (1.80-7.70); Neutrophils % (A) 49.4 %; Platelet Count 330 X 10*3/uL (140-440); RBC 5.18 X 10*6/uL (4.10-5.20); RDW 12.9 % (11.5-14.5); WBC 8.69 X 10*3/uL (4.50-10.00)
[2024-11-10 15:41] LABS: % Iron Saturation 13.45 (12.00-45.00); ALT 20 U/L (8-44); AST 24 U/L (13-35); Albumin 4.2 g/dL (3.8-4.9); Albumin/Globulin Ratio 1.62 Ratio (1.60-3.17); Alkaline Phosphatase 120 U/L (41-126); BUN/Creat Ratio 13.14 Ratio (12.00-20.00); Blood Urea Nitrogen 9.2 mg/dL (9.0-27.0); Calcium 9.7 mg/dL (8.7-10.3); Carbon Dioxide 25.2 mmol/L (21.6-31.8); Chloride 103 mmol/L (96-109); Chol/HDL Ratio 3.18 Ratio; Ferritin 74.6 ng/mL (10.0-291.0); Globulin 2.6 g/dL (1.6-3.3); Glucose 85 mg/dL (70-110); Iron 48 UG/DL (50-170); LDL Cholesterol,Calculated 85.8 mg/dL (0.0-131.0); Magnesium 1.9 mg/dL (1.5-2.4); Potassium 4.8 mmol/L (3.5-5.5); Sodium 140 mmol/L (135-145); Total Bilirubin 0.6 mg/dL (0.3-1.2); Total Iron Binding Capacity 357 UG/DL (228-460); Total Protein 6.8 g/dL (6.2-8.2); VLDL Calculation 18.38 mg/dL (5.00-40.00)
== END | disposition home or self-care (01) ==
LOC: LABWHC1 12:00
PROVIDERS: ATTEND Internal Medicine
DX: E78.5 Hyperlipidemia, unspecified (principal); E55.9 Vitamin D deficiency, unspecified; E53.8 Deficiency of other specified B group vitamins; R35.0 Frequency of micturition; R73.9 Hyperglycemia, unspecified
CPT/HCPCS: 36415; 80053; 80061; 81001; 82306; 82607; 82728; 82746; 83036; 83540; 83550; 83735; 84443; 85025